=== PATIENT | male | born 1960 | race African-American/Black ===

== ENCOUNTER 2021-03-14 12:15 | Inpatient (IN) ==
[2021-03-14] MEDS ORDERED: SODIUM CHLORIDE 0.9% 1000ML 1,000 ML IV ONE (12:28)
[2021-03-14 13:00] LABS: Basophils # (auto) 0.01 K/uL (0-0.2); Basophils % (auto) 0.1 %; Eosinophils # (auto) 0.02 K/uL (0-0.5); Eosinophils % (auto) 0.2 %; Hematocrit (blood only) 35.2 % (42-52); Hemoglobin 10.8 g/dL (14.0-18.0); Immature Granulocytes # (auto) 0.03 K/uL (0.00-0.02); Immature Granulocytes % (auto) 0.3 %; Lymphocytes # (auto) 0.92 K/uL (1.2-3.4); Lymphocytes % (auto) 8.1 %; Mean Corpuscular Hemoglobin 25.3 pg (25-34); Mean Corpuscular Hgb Conc 30.7 g/dL (32-36); Mean Corpuscular Volume 82.4 fL (80-100); Mean Platelet Volume 9.1 fL (7.4-10.4); Monocytes # (auto) 0.79 K/uL (0.11-0.59); Monocytes % (auto) 6.9 %; Neutrophils # (auto) 9.63 K/uL (1.4-6.5); Neutrophils % (auto) 84.4 %; Platelet Count 401 K/uL (130-400); RDW Coefficient of Variation 16.7 % (11.5-14.5); RDW Standard Deviation 50.3 fL (36.4-46.3); Red Blood Count 4.27 M/uL (4.7-6.1)
[2021-03-14 13:09] LABS: INR 1.1 (0.9-1.1); Partial Thromboplastin Ratio 0.9; Partial Thromboplastin Time 22.5 Seconds (21.0-31.0)
[2021-03-14 13:20] LABS: Albumin Level 2.9 gm/dl (3.4-5.0); BUN Creatinine Ratio 14.1 (10-20); Calcium 9.9 mg/dl (8.5-10.1); Creatinine Clr Calc Pharmacy 83.5 ml/min; Est GFR (African American) 91.5 ml/min; Magnesium 2.1 mg/dl (1.8-2.4); Potassium 4.1 mmol/L (3.5-5.1)
[2021-03-14 13:48] LABS: Albumin Globulin Ratio 0.4 (0.9-2); Bilirubin,Total 0.5 mg/dl (0.2-1); Globulin 6.6 gm/dl (2.5-4.0); Total Protein 9.5 gm/dl (6.4-8.2); Troponin I 0.327 ng/ml (0-0.045)
--- NOTE | 2021-03-14 13:50 | Emergency Department Note ---
History of Present Illness General Chief complaint: Chest Pain Stated complaint: CHEST PAIN, SOB Time Seen by Provider: 03/14/21 12:18 History of Present Illness Provider complaint: Chest pain Onset (ago): day(s) 1 Location: chest and abdomen Maximum Pain Intensity: 7 Current Pain Intensity: 7 Quality: + sharp Relieved By: + none Exacerbated By: + none Associated symptoms: + chest pain; no cough, no fever/chills, no headaches, no nausea/vomiting and no shortness of breath 60-year-old male prisoner presents emergency department in custody for chest pain. Patient reports his chest pain is sharp. He states it began it when they were changing his dressings in his colostomy. He denies any difficulty breathing. Denies any fevers. He denies any cough. Per notes from the group home: Inmate status post TURP was walking in the day room when he became diaphoretic a nd short of breath. His oxygen saturation 95% on room air heart rate normal respirations short and unlabored and when he was assisted into bed continue to complain of shortness of breath and "seeing spots" O2 recheck at 81% on room air. Home Medications Medication Instructions Recorded Confirmed Type bisacodyl 5 mg PO DAILY 03/14/21 03/14/21 History docusate sodium [Colace] 50 mg PO DAILY 03/14/21 03/14/21 History docusate sodium [Colace] 200 mg PO DAILY 03/14/21 03/14/21 History lactulose 10 g PO DAILY PRN 03/14/21 03/14/21 History rosuvastatin [Crestor] 20 mg PO QDD 03/14/21 03/14/21 History simethicone 180 mg PO BID 03/14/21 03/14/21 History Allergies Allergy/AdvReac Type Severity Reaction Status Date / Time No Known Allergies Allergy Unverified 03/14/21 16:05 Past Med/Surg History Medical History (Updated 03/14/21 @ 16:45 by Jam Magana) BPH (benign prostatic hyperplasia) Diverticulitis of colon with perforation HLD (hyperlipidemia) No pertinent family history Surgical History (Updated 03/14/21 @ 16:08 by Olimpia Hensley PA-C) History of bilateral inguinal herniorrhaphies Hx of colostomy S/P TURP Social History (Updated 03/14/21 @ 16:09 by Olimpia Hensley PA-C) Smoking Status: Former smoker Current Living Situation Comment: incarcerated at [facility] Feels Safe at Home: Yes Review of Systems A total of 10 systems reviewed and were otherwise negative Physical Exam Vital Signs Vital Signs - 24 hr 03/14/21 12:20 03/14/21 12:24 03/14/21 12:30 Temperature Temperature Source Pulse Rate 127 H 129 H 130 H Pulse Rate [Apical] Pulse Rate from SpO2 Sensor 128 H 129 H 130 H Respiratory Rate 15 17 19 Respiratory Effort / Characteristics Respiratory Depth Respiratory Pattern Blood Pressure 123/79 119/77 Blood Pressure [Right Arm] Blood Pressure Mean 93 91 Blood Pressure Mean [Right Arm] Blood Pressure Position Blood Pressure Position [Right Arm] Pulse Oximetry 94 95 94 Oxygen Delivery Method Sepsis Recent Fever Within 48 Hours Sepsis New/Unexplained Change in Mental Status Sepsis Action Taken by Nursing 03/14/21 12:31 03/14/21 12:33 03/14/21 12:40 Temperature 36.3 C L Temperature Source Oral Pulse Rate 128 H 129 H 130 H Pulse Rate [Apical] Pulse Rate from SpO2 Sensor 130 H Respiratory Rate 17 19 18 Respiratory Effort / Characteristics Non-Labored Respiratory Depth Normal Respiratory Pattern Regular Blood Pressure 119/77 Blood Pressure [Right Arm] Blood Pressure Mean 91 Blood Pressure Mean [Right Arm] Blood Pressure Position Sitting Blood Pressure Position [Right Arm] Pulse Oximetry 94 94 Oxygen Delivery Method Room Air Room Air Sepsis Recent Fever Within 48 Hours No Sepsis New/Unexplained Change in Mental Status N/A Sepsis Action Taken by Nursing No Action Required 03/14/21 12:50 03/14/21 13:00 03/14/21 13:10 Temperature Temperature Source Pulse Rate 129 H 127 H 128 H Pulse Rate [Apical] Pulse Rate from SpO2 Sensor Respiratory Rate 17 19 19 Respiratory Effort / Characteristics Respiratory Depth Respiratory Pattern Blood Pressure Blood Pressure [Right Arm] Blood Pressure Mean Blood Pressure Mean [Right Arm] Blood Pressure Position Blood Pressure Position [Right Arm] Pulse Oximetry Oxygen Delivery Method Sepsis Recent Fever Within 48 Hours Sepsis New/Unexplained Change in Mental Status Sepsis Action Taken by Nursing 03/14/21 13:20 03/14/21 13:27 03/14/21 13:30 Temperature Temperature Source Pulse Rate 126 H 126 H 127 H Pulse Rate [Apical] Pulse Rate from SpO2 Sensor 128 H 128 H Respiratory Rate 15 19 19 Respiratory Effort / Characteristics Respiratory Depth Respiratory Pattern Blood Pressure 127/79 107/77 Blood Pressure [Right Arm] Blood Pressure Mean 95 87 Blood Pressure Mean [Right Arm] Blood Pressure Position Blood Pressure Position [Right Arm] Pulse Oximetry 95 94 Oxygen Delivery Method Sepsis Recent Fever Within 48 Hours Sepsis New/Unexplained Change in Mental Status Sepsis Action Taken by Nursing 03/14/21 13:31 03/14/21 13:40 03/14/21 14:03 Temperature Temperature Source Pulse Rate 126 H 120 H 122 H Pulse Rate [Apical] Pulse Rate from SpO2 Sensor 125 H 120 H 125 H Respiratory Rate 19 21 16 Respiratory Effort / Characteristics Respiratory Depth Respiratory Pattern Blood Pressure Blood Pressure [Right Arm] Blood Pressure Mean Blood Pressure Mean [Right Arm] Blood Pressure Position Blood Pressure Position [Right Arm] Pulse Oximetry 94 94 92 Oxygen Delivery Method Sepsis Recent Fever Within 48 Hours Sepsis New/Unexplained Change in Mental Status Sepsis Action Taken by Nursing 03/14/21 14:04 03/14/21 14:10 03/14/21 14:20 Temperature Temperature Source Pulse Rate 122 H 120 H 125 H Pulse Rate [Apical] Pulse Rate from SpO2 Sensor 123 H Respiratory Rate 20 17 18 Respiratory Effort / Characteristics Respiratory Depth Respiratory Pattern Blood Pressure 119/85 Blood Pressure [Right Arm] Blood Pressure Mean 96 Blood Pressure Mean [Right Arm] Blood Pressure Position Blood Pressure Position [Right Arm] Pulse Oximetry 93 Oxygen Delivery Method Sepsis Recent Fever Within 48 Hours Sepsis New/Unexplained Change in Mental Status Sepsis Action Taken by Nursing 03/14/21 14:30 03/14/21 14:31 03/14/21 14:40 Temperature Temperature Source Pulse Rate 125 H 122 H 120 H Pulse Rate [Apical] Pulse Rate from SpO2 Sensor Respiratory Rate 16 21 18 Respiratory Effort / Characteristics Respiratory Depth Respiratory Pattern Blood Pressure 116/78 Blood Pressure [Right Arm] Blood Pressure Mean 90 Blood Pressure Mean [Right Arm] Blood Pressure Position Blood Pressure Position [Right Arm] Pulse Oximetry Oxygen Delivery Method Sepsis Recent Fever Within 48 Hours Sepsis New/Unexplained Change in Mental Status Sepsis Action Taken by Nursing 03/14/21 14:50 03/14/21 15:40 03/14/21 16:31 Temperature Temperature Source Pulse Rate 120 H Pulse Rate [Apical] 136 H Pulse Rate from SpO2 Sensor Respiratory Rate 22 20 Respiratory Effort / Characteristics Labored Respiratory Depth Respiratory Pattern Blood Pressure Blood Pressure [Right Arm] 118/93 Blood Pressure Mean Blood Pressure Mean [Right Arm] 101 Blood Pressure Position Blood Pressure Position [Right Arm] Lying Pulse Oximetry 95 94 Oxygen Delivery Method Room Air Room Air Sepsis Recent Fever Within 48 Hours Sepsis New/Unexplained Change in Mental Status Sepsis Action Taken by Nursing Physical Exam GENERAL: He is oriented to person, place, and time. He appears well-developed and well-nourished. He does not appear distressed. HENT: Exam performed. - Head: Normocephalic and atraumatic. - Right Ear: External ear normal. No mastoid tenderness. - Left Ear: External ear normal. No mastoid tenderness. - Mouth/Throat: The oropharynx is clear and moist. No trismus in the jaw. No dental abscesses or uvula swelling. No oropharyngeal exudate or tonsillar abscesses. EYES: Conjunctivae and EOM are normal. Pupils are equal, round, and reactive to light. Right eye exhibits no discharge. Left eye exhibits no discharge. No scleral icterus. NECK: Normal range of motion. Neck supple. No JVD present. No spinous process tenderness present. No carotid bruit present. No rigidity. No tracheal deviation and normal range of motion present. No Brudzinski's sign and no Kernig's sign noted. CV: Tachycardic rate, regular rhythm, normal heart sounds and intact distal pulses. There is no peripheral edema. Palpable radial pulses bue. PULM/CHEST: Effort normal and breath sounds normal. No respiratory distress. No stridor. He has no wheezes. He has no rales. - Chest Wall: He exhibits no tenderness. ABD: Anterior abdominal wound that is clean and dry. No purulent discharge or bleeding. Ostomy bag present with no surrounding erythema. MUSC/SKEL: Normal range of motion. There is no peripheral edema, tenderness or deformity. LYMPH: No cervical adenopathy. NEURO: He is alert and oriented to person, place, and time. He has normal strength. No cranial nerve deficit or sensory deficit. Coordination and gait normal. GCS eye subscore is 4. GCS verbal subscore is 5. GCS motor subscore is 6. Cerebellar tests wnl. SKIN: Skin is warm and dry. He is not diaphoretic. PSYCH: He has a normal mood and affect. Behavior is normal. Judgment and thought content normal. Course Course 1218: The patient was evaluated in room B6. A complete history and physical exam was performed Cardiac monitoring: An order was placed for continuous cardiac monitoring. The monitor shows a rate of 120 with sinus tachycardia rhythm 1500: Patient remains tachycardic but he is satting well on room air and normotensive. Labs show an elevated troponin 0.327. Lipase 610. AST ALT 48 and 114 respectively. Imaging shows saddle embolus with extensive bilateral pulmonary emboli. There is postoperative change from the left-sided colon resection. No bowel obstruction. There are thickened bowel loops and tiny foci of extraluminal gas which could represent a postoperative change in adhesions or focal enteritis and contained perforation. No organized triple fluid collection is identified. There is a thin peripherally enhancing fluid-filled tract i nferiorly from the tethered small bowel loops which could represent a previous surgical drain or developing fistula. Nonspecific gas within the bladder lumen. Patient be treated with antibiotics for this possible contained perforation Zosyn and vancomycin. Given the patient's saddle embolus and pulmonary emboli, the patient will be started on anticoagulation heparin. Patient states he is not sure where or when he had the surgical procedure done. I spoke with the group home and I spoke with Dane HUYNH at [facility]. He states he thinks that the patient had a TURP done 3 weeks ago in [place] and during the TURP they caused a colon perforation. He states he is not sure about this and is not sure who the surgeon was or if the patient truly had the TURP done at [place] and states he will try to find this information out. It is not thought that the patient would be a good candidate for TPA given his recent surgical procedure. We will start the patient on heparin at this time. Spoke with Dr. Mcfadden [facility] hospitalist who will evaluate the patient for admission. 1517: Dane HUYNH at [facility] called back and stated that the patient had a bowel resection done at [facility] on [address] Edmondson. He states he is not sure when or where the patient's TURP procedure was done. Administered Medications Heparin Sodium/Dextrose (Heparin Sodium/Dextrose) 25,000 units in 500 mls @ 30 mls/hr IV .[id number] [facility]; Protocol Stop: 04/13/21 14:53 Last Admin: 03/14/21 15:09 Dose: 1,500 units/hr, 30 mls/hr Documented by: [id number] Cosigned by: [id number] Vancomycin HCl 2,250 mg/ (Sodium Chloride) 545 mls @ 200 mls/hr IV NOW ONE Stop: 03/14/21 17:21 Last Admin: 03/14/21 15:10 Dose: 200 mls/hr Documented by: [id number] Discontinued Medications Heparin Sodium (Porcine) (Heparin Sod (Porcine) 1000 Unit/Ml) 1 units IV NOW ONE Stop: 03/14/21 14:55 Last Admin: 03/14/21 15:07 Dose: 7,000 units Documented by: [id number] Cosigned by: [id number] Heparin Sodium/Dextrose (Heparin Iv Adult Wt-Based Standard With Bolus Protocol) 1 ea IV NOW STA; Protocol Stop: 03/14/21 14:39 Last Admin: 03/14/21 15:10 Dose: Not Given Documented by: [id number] Sodium Chloride (Nss 1000ml) 1,000 mls @ 999 mls/hr IV .[id number] ONE Stop: 03/14/21 13:28 Last Infusion: 03/14/21 15:10 Dose: 0 mls/hr Documented by: [id number] Admin: 03/14/21 13:27 Dose: 999 mls/hr Documented by: [id number] Piperacillin Sod/Tazobactam Sod (Zosyn) 4.5 gm in 120 mls @ 240 mls/hr IV NOW ONE Stop: 03/14/21 15:07 Last Infusion: 03/14/21 15:49 Dose: 0 mls/hr Documented by: [id number] Admin: 03/14/21 15:10 Dose: 240 mls/hr Documented by: [id number] Ioversol (Optiray 320 125ml) 120 ml IV ONCE ONE Stop: 03/14/21 13:52 Last Admin: 03/14/21 13:51 Dose: 120 ml Documented by: [id number] Ondansetron HCl (Ondansetron Inj 2 Mg/Ml 2 Ml Vial) 4 mg IV NOW STA Stop: 03/14/21 15:50 Last Admin: 03/14/21 15:57 Dose: 4 mg Documented by: [id number] Critical Care Time Critical Care Time: Yes Total Critical Care Time: 61 I have personally spent greater than 61 minutes of critical care time in the direct management of this patient. This includes bedside care, interpretation of diagnostic studies, and testing, discussion with consultants, patient, and family members, and other required patient management activities. This 61 minutes is in excess of all separately billable procedures. Medical Decision Making Laboratory Data Result diagrams: 03/14/21 12:47 03/14/21 12:47 Lab Results 03/14/21 03/14/21 03/14/21 Range/Units 12:47 12:47 12:47 WBC 11.40 H (4.8-10.8) K/uL RBC 4.27 L (4.7-6.1) M/uL Hgb 10.8 L (14.0-18.0) g/dL Hct 35.2 L (42-52) % MCV 82.4 (80-100) fL MCH 25.3 (25-34) pg MCHC 30.7 L (32-36) g/dL RDW Std Deviation 50.3 H (36.4-46.3) fL RDW Coeff of Heron 16.7 H (11.5-14.5) % Plt Count 401 H (130-400) K/uL MPV 9.1 (7.4-10.4) fL Immature Gran % (Auto) 0.3 % Neut % (Auto) 84.4 % Lymph % (Auto) 8.1 % [place] % (Auto) 6.9 % Eos % (Auto) 0.2 % Baso % (Auto) 0.1 % Neut # (Auto) 9.63 H (1.4-6.5) K/uL Lymph # (Auto) 0.92 L (1.2-3.4) K/uL [place] # (Auto) 0.79 H (0.11-0.59) K/uL Eos # (Auto) 0.02 (0-0.5) K/uL Baso # (Auto) 0.01 (0-0.2) K/uL Immature Gran # (Auto) 0.03 H (0.00-0.02) K/uL PT 11.0 (9.0-12.0) Seconds INR 1.1 (0.9-1.1) APTT 22.5 (21.0-31.0) Seconds PTT Ratio 0.9 Sodium 134 L (136-145) mmol/L Potassium 4.1 (3.5-5.1) mmol/L Chloride 99 (98-107) mmol/L Carbon Dioxide 25 (21-32) mmol/L Anion Gap 10.0 (3-11) BUN 14 (7-18) mg/dl Creatinine 1.02 (0.6-1.4) mg/dl Est Cr Clr Drug Dosing 83.5 ml/min Est GFR ( Amer) 91.5 ml/min Est GFR (Non-Af Amer) 79.0 ml/min BUN/Creatinine Ratio 14.1 (10-20) Glucose 119 H (70-99) mg/dl Lactate (0.4-2.0) mmol/L Calcium 9.9 (8.5-10.1) mg/dl Magnesium 2.1 (1.8-2.4) mg/dl Total Bilirubin 0.5 (0.2-1) mg/dl AST 48 H (15-37) U/L ALT 114 H (12-78) U/L Alkaline Phosphatase 155 H (45-117) U/L Troponin I 0.327 H* (0-0.045) ng/ml Total Protein 9.5 H (6.4-8.2) gm/dl Albumin 2.9 L (3.4-5.0) gm/dl Globulin 6.6 H (2.5-4.0) gm/dl Albumin/Globulin Ratio 0.4 L (0.9-2) Lipase (73-393) U/L Procalcitonin (0-0.5) ng/ml Urine Color Urine Appearance (Clear) Urine pH (4.5-7.5) Ur Specific [place] (1.000-1.030) Urine Protein (Negative) Urine Glucose (UA) (Negative) Urine Ketones (Negative) Urine Blood (Negative) Urine Nitrite (Negative) Urine Bilirubin (Negative) Urine Urobilinogen (Negative) Ur Leukocyte Esterase (Negative) Urine WBC (Auto) (0-5) /hpf Urine RBC (Auto) (0-4) /hpf U Hyaline Cast (Auto) (0-5) /lpf U Epithel Cells (Auto) (0-5) /lpf Urine Bacteria (Auto) (Negative) Urine Yeast COVID-19 Eval Order SARS-CoV-2 (PCR) (Negative) 03/14/21 03/14/21 03/14/21 Range/Units 12:47 12:47 12:47 WBC (4.8-10.8) K/uL RBC (4.7-6.1) M/uL Hgb (14.0-18.0) g/dL Hct (42-52) % MCV (80-100) fL MCH (25-34) pg MCHC (32-36) g/dL RDW Std Deviation (36.4-46.3) fL RDW Coeff of Heron (11.5-14.5) % Plt Count (130-400) K/uL MPV (7.4-10.4) fL Immature Gran % (Auto) % Neut % (Auto) % Lymph % (Auto) % [place] % (Auto) % Eos % (Auto) % Baso % (Auto) % Neut # (Auto) (1.4-6.5) K/uL Lymph # (Auto) (1.2-3.4) K/uL [place] # (Auto) (0.11-0.59) K/uL Eos # (Auto) (0-0.5) K/uL Baso # (Auto) (0-0.2) K/uL Immature Gran # (Auto) (0.00-0.02) K/uL PT (9.0-12.0) Seconds INR (0.9-1.1) APTT (21.0-31.0) Seconds PTT Ratio Sodium (136-145) mmol/L Potassium (3.5-5.1) mmol/L Chloride (98-107) mmol/L Carbon Dioxide (21-32) mmol/L Anion Gap (3-11) BUN (7-18) mg/dl Creatinine (0.6-1.4) mg/dl Est Cr Clr Drug Dosing ml/min Est GFR ( Amer) ml/min Est GFR (Non-Af Amer) ml/min BUN/Creatinine Ratio (10-20) Glucose (70-99) mg/dl Lactate 1.0 (0.4-2.0) mmol/L Calcium (8.5-10.1) mg/dl Magnesium (1.8-2.4) mg/dl Total Bilirubin (0.2-1) mg/dl AST (15-37) U/L ALT (12-78) U/L Alkaline Phosphatase (45-117) U/L Troponin I (0-0.045) ng/ml Total Protein (6.4-8.2) gm/dl Albumin (3.4-5.0) gm/dl Globulin (2.5-4.0) gm/dl Albumin/Globulin Ratio (0.9-2) Lipase 610 H (73-393) U/L Procalcitonin 0.06 (0-0.5) ng/ml Urine Color Urine Appearance (Clear) Urine pH (4.5-7.5) Ur Specific [place] (1.000-1.030) Urine Protein (Negative) Urine Glucose (UA) (Negative) Urine Ketones (Negative) Urine Blood (Negative) Urine Nitrite (Negative) Urine Bilirubin (Negative) Urine Urobilinogen (Negative) Ur Leukocyte Esterase (Negative) Urine WBC (Auto) (0-5) /hpf Urine RBC (Auto) (0-4) /hpf U Hyaline Cast (Auto) (0-5) /lpf U Epithel Cells (Auto) (0-5) /lpf Urine Bacteria (Auto) (Negative) Urine Yeast COVID-19 Eval Order SARS-CoV-2 (PCR) (Negative) 03/14/21 03/14/21 03/14/21 Range/Units 15:07 15:07 15:14 WBC (4.8-10.8) K/uL RBC (4.7-6.1) M/uL Hgb (14.0-18.0) g/dL Hct (42-52) % MCV (80-100) fL MCH (25-34) pg MCHC (32-36) g/dL RDW Std Deviation (36.4-46.3) fL RDW Coeff of Heron (11.5-14.5) % Plt Count (130-400) K/uL MPV (7.4-10.4) fL Immature Gran % (Auto) % Neut % (Auto) % Lymph % (Auto) % [place] % (Auto) % Eos % (Auto) % Baso % (Auto) % Neut # (Auto) (1.4-6.5) K/uL Lymph # (Auto) (1.2-3.4) K/uL [place] # (Auto) (0.11-0.59) K/uL Eos # (Auto) (0-0.5) K/uL Baso # (Auto) (0-0.2) K/uL Immature Gran # (Auto) (0.00-0.02) K/uL PT (9.0-12.0) Seconds INR (0.9-1.1) APTT (21.0-31.0) Seconds PTT Ratio Sodium (136-145) mmol/L Potassium (3.5-5.1) mmol/L Chloride (98-107) mmol/L Carbon Dioxide (21-32) mmol/L Anion Gap (3-11) BUN (7-18) mg/dl Creatinine (0.6-1.4) mg/dl Est Cr Clr Drug Dosing ml/min Est GFR ( Amer) ml/min Est GFR (Non-Af Amer) ml/min BUN/Creatinine Ratio (10-20) Glucose (70-99) mg/dl Lactate (0.4-2.0) mmol/L Calcium (8.5-10.1) mg/dl Magnesium (1.8-2.4) mg/dl Total Bilirubin (0.2-1) mg/dl AST (15-37) U/L ALT (12-78) U/L Alkaline Phosphatase (45-117) U/L Troponin I (0-0.045) ng/ml Total Protein (6.4-8.2) gm/dl Albumin (3.4-5.0) gm/dl Globulin (2.5-4.0) gm/dl Albumin/Globulin Ratio (0.9-2) Lipase (73-393) U/L Procalcitonin (0-0.5) ng/ml Urine Color Yellow Urine Appearance Turbid A (Clear) Urine pH 7.5 (4.5-7.5) Ur Specific [place] > 1.045 H (1.000-1.030) Urine Protein 2+ H (Negative) Urine Glucose (UA) Negative (Negative) Urine Ketones Negative (Negative) Urine Blood 3+ H (Negative) Urine Nitrite Positive A (Negative) Urine Bilirubin Negative (Negative) Urine Urobilinogen Negative (Negative) Ur Leukocyte Esterase 3+ H (Negative) Urine WBC (Auto) >30 H (0-5) /hpf Urine RBC (Auto) >30 H (0-4) /hpf U Hyaline Cast (Auto) 1-5 (0-5) /lpf U Epithel Cells (Auto) 20-30 H (0-5) /lpf Urine Bacteria (Auto) 4+ H (Negative) Urine Yeast Not Reportable COVID-19 Eval Order Covid19 at [facility] SARS-CoV-2 (PCR) NEGATIVE (Negative) Imaging Data Radiologist's Impression: Abdomen/Pelvis CT 03/14/21 12:28 CT ANGIOGRAM OF THE CHEST; CT SCAN OF THE ABDOMEN AND PELVIS WITH IV CONTRAST CLINICAL HISTORY: Atypical chest pain. Dyspnea. Generalized abdominal pain. COMPARISON STUDY: Chest x-ray dated 03/14/2021. TECHNIQUE: Following the IV administration of 120 of Optiray 320, CT angiogram of the chest is performed from the upper abdomen to the thoracic inlet utilizing the pulmonary embolus protocol. Images are reviewed in the axial, sagittal, coronal planes. 3-D MIPS images are created and assessed. Subsequently, CT scan of the abdomen and pelvis was performed from the lung bases to the proximal femora. Images are reviewed in the axial, sagittal, and coronal planes. IV contrast was administered without complication. A dose lowering technique was utilized adhering to the principles of ALARA. CT DOSE: 924.86 mGy.cm FINDINGS: CHEST: Thyroid: Imaged portions of the thyroid gland are normal in size and attenuation. Thoracic aorta: The thoracic aorta is normal in caliber and demonstrates standard 3-vessel arch anatomy. No dissection is seen. Pulmonary vasculature: The pulmonary trunk is mildly dilated measuring 3.3 cm in transverse diameter. This suggests pulmonary artery hypertension. There is saddle pulmonary embolus with extensive bilateral pulmonary emboli. Thrombus is seen within the right and left main pulmonary arteries. This extends into all lobar branches, and reaches segmental and subsegmental branches in all lobes. Heart: The heart is mildly enlarged and without pericardial effusion. The coronary arteries are densely calcified. Lungs and pleural spaces: Moderate emphysematous change is noted. There is no airspace consolidation typical for pneumonia or pleural effusion. The trachea and central airways are clear. Scarring/atelectasis is present at both lung bases. A 3 mm pleural-based nodule in the left lower lobe is seen on image #175. Mediastinum: There is no mediastinal lymphadenopathy. Meena: Clear. Axillae: There is no axillary lymphadenopathy. Bony thorax: No lytic or blastic lesions are identified. ABDOMEN AND PELVIS: Liver: The contrast-enhanced liver is normal in size, contour, and attenuation. There is no intrahepatic or ductal dilatation. The hepatic veins and portal veins are patent. Scattered subcentimeter hepatic hypodensities may represent cysts but are too small for definitive characterization. Gallbladder: Unremarkable. Spleen: Normal in size and attenuation. Pancreas: Unremarkable. Adrenal glands: Unremarkable. Kidneys: The contrast enhanced kidneys are normal in size and without hydronephrosis. The kidneys enhance symmetrically. A 10 mm cyst is noted in the interpolar left kidney. Abdominal vasculature: There is mild to moderate atherosclerotic calcification as well as ectasia of the abdominal aorta. There is mild aneurysmal dilatation of the common iliac arteries which measure up to 2.0 cm in diameter. Extensive deep venous thrombosis is seen within the right common femoral vein. The iliac veins and IVC appear clear. Stomach and bowel: There is a small hiatal hernia. There is postoperative change from left-sided colon resection with left lower quadrant colostomy. A rectosigmoid stump is noted in the pelvis. No bowel obstruction is seen. There are scattered colonic diverticula without CT evidence of acute diverticulitis. The appendix is well-visualized and normal. There are mildly thick-walled and hyperemic loops of small bowel in the lateral left mid abdomen at the operative site, and small bowel loops appear tethered in this region on image #225. There are tiny foci of extraluminal gas identified adjacent to a small bowel loop seen on axial image #252. There is a thin and peripherally enhancing fluid containing tract in this region seen on image #280 which extends inferiorly from the tethered loops. This may represent a tract from a previous drain. A small fistula is not excluded. There is gas within this tract on image #206. Peritoneum: There is no intraperitoneal free air below the diaphragm. No abdominal ascites is seen. There is diastases of the ventral abdominal wall. Lymphadenopathy: None. Pelvic viscera: The bladder wall is thickened and trabeculated indicating chronic outlet obstruction. There are foci of intraluminal gas. The prostate gland is enlarged and heterogeneous noting median lobe hypertrophy. Question previous prostate surgery. Skeletal structures: No lytic or blastic lesions are seen. IMPRESSION: 1. Saddle embolus with extensive bilateral pulmonary emboli as above. 2. Cardiomegaly and emphysema. 3. There is no airspace consolidation typical for pneumonia or pleural effusion. 4. There is postoperative change from left-sided colon resection with left lower quadrant colostomy and rectosigmoid stump formation. No bowel obstruction is seen. 5. There are mildly thick-walled and hyperemic loops of small bowel in the left lateral abdomen at the resection site which appeared somewhat tethered. Additionally, there are tiny foci of extraluminal gas adjacent to one of the small bowel loops. This may represent postoperative change and adhesions. A focal enteritis and contained perforation is not excluded. Clinical correlation will be essential. 6. Additionally, there is a thin and peripherally enhancing fluid-filled tract extending inferiorly from the tethered small bowel loops. This may represent a site of previous surgical drain, or possibly a developing fistula. 7. No organized/triple fluid collection is identified. 8. No intraperitoneal free air seen below the diaphragm. 9. There is nonspecific gas within the bladder lumen. Correlate with clinical findings and urinalysis. 10. Postoperative change is suggested in the prostate and there is evidence of chronic bladder outlet obstruction. 11. Deep venous thrombosis is present in the right common femoral vein. 12. Diastases of the ventral abdominal wall. 13. A 3 mm pleural-based nodule is seen in the left lower lobe. This can be followed if clinically warranted. See below. 14. Additional findings as above. Please refer to below summary of Fleischner criteria recommendations for follow- up of incidental CT nodules (Thais Barrientos, Guidelines for management of small pulmonary nodules detected on CT scans: A statement from the Fleischner Society, Radiology 237: [phone].) SOLID NODULES Solitary nodule size: <6 mm * low risk patients: no follow-up needed * high risk patients: optional CT at 12 months Solitary nodule size: 6-8 mm * low risk patients: follow-up at 6-12 months, then consider further follow-up at 18-24 months * high risk patients: initial follow-up CT at 6-12 months and then at 18-24 months if no change Solitary nodule size: >8 mm * either low or high risk patients - consider follow-up CT at 3 months, and/or CT-PET, and/or biopsy Multiple nodules size: <6 mm * low risk patients: no routine follow-up * high risk patients: optional CT at 12 months Multiple nodules size: 6-8 mm * low risk patients: follow-up at 3-6 months, then consider further follow-up at 18-24 months * high risk patients: follow-up at 3-6 months, then at 18-24 months if no change Multiple nodules size: >8 mm * low risk patients: follow-up at 3-6 months, then consider further follow-up at 18-24 months * high risk patients: follow-up at 3-6 months, then at 18-24 months if no change Note: newly detected indeterminate nodule in persons 35 years of age or older. * low risk patients: minimal or absent history of smoking and/or other known risk factors * high risk patients: history of smoking or of other known risk factors (e.g. first degree relative with lung cancer, or exposure to asbestos, radon, uranium) * if a nodule up to 8 mm is partly solid or is ground glass further follow-up is required after 24 months to exclude possible slow growing adenocarcinoma (MECHELLE) SUBSOLID NODULES Solitary pure ground-glass nodule * nodule size <6 mm - no CT follow-up required * nodule size >=6 mm - follow-up CT at 6-12 months, then every 2 years until 5 years Solitary part-solid nodule * nodule size <6 mm - no CT follow-up required * nodule size >=6 mm - follow-up CT at 3-6 months. If unchanged, and solid component remains <6 mm, then annual follow-up for 5 years Multiple subsolid nodules * nodule size <6 mm - follow-up CT at 3-6 months, consider further follow-up at 2 and 4 years if stable * nodule size >=6 mm - follow-up CT at 3-6 months, subsequent management based on the most suspicious nodule(s) ACT 112: Negative or not required by law. Electronically signed by: Parviz Blanca M.D. 03/14/2021 2:32 PM Chest CTA 03/14/21 12:28 CT ANGIOGRAM OF THE CHEST; CT SCAN OF THE ABDOMEN AND PELVIS WITH IV CONTRAST CLINICAL HISTORY: Atypical chest pain. Dyspnea. Generalized abdominal pain. COMPARISON STUDY: Chest x-ray dated 03/14/2021. TECHNIQUE: Following the IV administration of 120 of Optiray 320, CT angiogram of the chest is performed from the upper abdomen to the thoracic inlet utilizing the pulmonary embolus protocol. Images are reviewed in the axial, sagittal, coronal planes. 3-D MIPS images are created and assessed. Subsequently, CT scan of the abdomen and pelvis was performed from the lung bases to the proximal femora. Images are reviewed in the axial, sagittal, and coronal planes. IV contrast was administered without complication. A dose lowering technique was utilized adhering to the principles of ALARA. CT DOSE: 924.86 mGy.cm FINDINGS: CHEST: Thyroid: Imaged portions of the thyroid gland are normal in size and attenuation. Thoracic aorta: The thoracic aorta is normal in caliber and demonstrates standard 3-vessel arch anatomy. No dissection is seen. Pulmonary vasculature: The pulmonary trunk is mildly dilated measuring 3.3 cm in transverse diameter. This suggests pulmonary artery hypertension. There is saddle pulmonary embolus with extensive bilateral pulmonary emboli. Thrombus is seen within the right and left main pulmonary arteries. This extends into all lobar branches, and reaches segmental and subsegmental branches in all lobes. Heart: The heart is mildly enlarged and without pericardial effusion. The coronary arteries are densely calcified. Lungs and pleural spaces: Moderate emphysematous change is noted. There is no airspace consolidation typical for pneumonia or pleural effusion. The trachea and central airways are clear. Scarring/atelectasis is present at both lung bases. A 3 mm pleural-based nodule in the left lower lobe is seen on image #175. Mediastinum: There is no mediastinal lymphadenopathy. Meena: Clear. Axillae: There is no axillary lymphadenopathy. Bony thorax: No lytic or blastic lesions are identified. ABDOMEN AND PELVIS: Liver: The contrast-enhanced liver is normal in size, contour, and attenuation. There is no intrahepatic or ductal dilatation. The hepatic veins and portal veins are patent. Scattered subcentimeter hepatic hypodensities may represent cysts but are too small for definitive characterization. Gallbladder: Unremarkable. Spleen: Normal in size and attenuation. Pancreas: Unremarkable. Adrenal glands: Unremarkable. Kidneys: The contrast enhanced kidneys are normal in size and without hydronephrosis. The kidneys enhance symmetrically. A 10 mm cyst is noted in the interpolar left kidney. Abdominal vasculature: There is mild to moderate atherosclerotic calcification as well as ectasia of the abdominal aorta. There is mild aneurysmal dilatation of the common iliac arteries which measure up to 2.0 cm in diameter. Extensive deep venous thrombosis is seen within the right common femoral vein. The iliac veins and IVC appear clear. Stomach and bowel: There is a small hiatal hernia. There is postoperative change from left-sided colon resection with left lower quadrant colostomy. A rectosigmoid stump is noted in the pelvis. No bowel obstruction is seen. There are scattered colonic diverticula without CT evidence of acute diverticulitis. The appendix is well-visualized and normal. There are mildly thick-walled and hyperemic loops of small bowel in the lateral left mid abdomen at the operative site, and small bowel loops appear tethered in this region on image #225. There are tiny foci of extraluminal gas identified adjacent to a small bowel loop seen on axial image #252. There is a thin and peripherally enhancing fluid containing tract in this region seen on image #280 which extends inferiorly from the tethered loops. This may represent a tract from a previous drain. A small fistula is not excluded. There is gas within this tract on image #206. Peritoneum: There is no intraperitoneal free air below the diaphragm. No abdominal ascites is seen. There is diastases of the ventral abdominal wall. Lymphadenopathy: None. Pelvic viscera: The bladder wall is thickened and trabeculated indicating chronic outlet obstruction. There are foci of intraluminal gas. The prostate gland is enlarged and heterogeneous noting median lobe hypertrophy. Question previous prostate surgery. Skeletal structures: No lytic or blastic lesions are seen. IMPRESSION: 1. Saddle embolus with extensive bilateral pulmonary emboli as above. 2. Cardiomegaly and emphysema. 3. There is no airspace consolidation typical for pneumonia or pleural effusion. 4. There is postoperative change from left-sided colon resection with left lower quadrant colostomy and rectosigmoid stump formation. No bowel obstruction is seen. 5. There are mildly thick-walled and hyperemic loops of small bowel in the left lateral abdomen at the resection site which appeared somewhat tethered. Additionally, there are tiny foci of extraluminal gas adjacent to one of the small bowel loops. This may represent postoperative change and adhesions. A focal enteritis and contained perforation is not excluded. Clinical correlation will be essential. 6. Additionally, there is a thin and peripherally enhancing fluid-filled tract extending inferiorly from the tethered small bowel loops. This may represent a site of previous surgical drain, or possibly a developing fistula. 7. No organized/triple fluid collection is identified. 8. No intraperitoneal free air seen below the diaphragm. 9. There is nonspecific gas within the bladder lumen. Correlate with clinical findings and urinalysis. 10. Postoperative change is suggested in the prostate and there is evidence of chronic bladder outlet obstruction. 11. Deep venous thrombosis is present in the right common femoral vein. 12. Diastases of the ventral abdominal wall. 13. A 3 mm pleural-based nodule is seen in the left lower lobe. This can be followed if clinically warranted. See below. 14. Additional findings as above. Please refer to below summary of Fleischner criteria recommendations for follow- up of incidental CT nodules (Thais Barrientos, Guidelines for management of small pulmonary nodules detected on CT scans: A statement from the Fleischner Society, Radiology 237: [phone].) SOLID NODULES Solitary nodule size: <6 mm * low risk patients: no follow-up needed * high risk patients: optional CT at 12 months Solitary nodule size: 6-8 mm * low risk patients: follow-up at 6-12 months, then consider further follow-up at 18-24 months * high risk patients: initial follow-up CT at 6-12 months and then at 18-24 months if no change Solitary nodule size: >8 mm * either low or high risk patients - consider follow-up CT at 3 months, and/or CT-PET, and/or biopsy Multiple nodules size: <6 mm * low risk patients: no routine follow-up * high risk patients: optional CT at 12 months Multiple nodules size: 6-8 mm * low risk patients: follow-up at 3-6 months, then consider further follow-up at 18-24 months * high risk patients: follow-up at 3-6 months, then at 18-24 months if no change Multiple nodules size: >8 mm * low risk patients: follow-up at 3-6 months, then consider further follow-up at 18-24 months * high risk patients: follow-up at 3-6 months, then at 18-24 months if no change Note: newly detected indeterminate nodule in persons 35 years of age or older. * low risk patients: minimal or absent history of smoking and/or other known risk factors * high risk patients: history of smoking or of other known risk factors (e.g. first degree relative with lung cancer, or exposure to asbestos, radon, uranium) * if a nodule up to 8 mm is partly solid or is ground glass further follow-up is required after 24 months to exclude possible slow growing adenocarcinoma (MECHELLE) SUBSOLID NODULES Solitary pure ground-glass nodule * nodule size <6 mm - no CT follow-up required * nodule size >=6 mm - follow-up CT at 6-12 months, then every 2 years until 5 years Solitary part-solid nodule * nodule size <6 mm - no CT follow-up required * nodule size >=6 mm - follow-up CT at 3-6 months. If unchanged, and solid component remains <6 mm, then annual follow-up for 5 years Multiple subsolid nodules * nodule size <6 mm - follow-up CT at 3-6 months, consider further follow-up at 2 and 4 years if stable * nodule size >=6 mm - follow-up CT at 3-6 months, subsequent management based on the most suspicious nodule(s) ACT 112: Negative or not required by law. Electronically signed by: Parviz Blanca M.D. 03/14/2021 2:32 PM Chest X-Ray 03/14/21 12:28 SINGLE VIEW CHEST CLINICAL HISTORY: Sepsis. FINDINGS: An AP, portable, upright chest radiograph is obtained. No prior studies are available for comparison at the time of dictation. The cardiomediastinal silhouette is unremarkable. Enlargement of the central p ulmonary arteries suggests pulmonary artery hypertension. The lungs and pleural spaces are clear. No pneumothorax is seen. The bony thorax is grossly intact. IMPRESSION: No active disease in the chest. ACT 112: Negative or not required by law. Electronically signed by: Parviz Blanca M.D. 03/14/2021 2:09 PM ECG Data Indication: + chest pain Rate (beats per minute): 126 Rhythm: + sinus tachycardia ECG Intervals/blocks: + Normal QRS, + Normal IL and + Normal QT-c ECG ST segments: + Normal ST segments MDM Narrative 1218: The patient was evaluated in room B6. A complete history and physical exam was performed Cardiac monitoring: An order was placed for continuous cardiac monitoring. The monitor shows a rate of 120 with sinus tachycardia rhythm 1500: Patient remains tachycardic but he is satting well on room air and normotensive. Labs show an elevated troponin 0.327. Lipase 610. AST ALT 48 and 114 respectively. Imaging shows saddle embolus with extensive bilateral pulmonary emboli. There is postoperative change from the left-sided colon resection. No bowel obstruction. There are thickened bowel loops and tiny foci of extraluminal gas which could represent a postoperative change in adhesions or focal enteritis and contained perforation. No organized triple fluid collection is identified. There is a thin peripherally enhancing fluid-filled tract inferiorly from the tethered small bowel loops which could represent a previous surgical drain or developing fistula. Nonspecific gas within the bladder lumen. Patient be treated with antibiotics for this possible contained perforation Zosyn and vancomycin. Given the patient's saddle embolus and pulmonary emboli, the patient will be started on anticoagulation heparin. Patient states he is not sure where or when he had the surgical procedure done. I spoke with the group home and I spoke with Dane HUYNH at [facility]. He states he thinks that the patient had a TURP done 3 weeks ago in [place] and during the TURP they caused a colon perforation. He states he is not sure about this and is not sure who the surgeon was or if the patient truly had the TURP done at [place] and states he will try to find this information out. It is not thought that the patient would be a good candidate for TPA given his recent surgical procedure. We will start the patient on heparin at this time. Spoke with Dr. Mcfadden [facility] hospitalist who will evaluate the patient for admission. 1517: Dane HUYNH at [facility] called back and stated that the patient had a bowel resection done at [facility] on February [address] Edmondson. He states he is not sure when or where the patient's TURP procedure was done. Impression & Plan Pulmonary emboli, Acute UTI Discharge Plan Visit Data Chief Complaint: Chest Pain Stated Complaint: CHEST PAIN, SOB ED Provider: Jam Magana Discharge Problem: Pulmonary emboli, Acute UTI Patient Disposition: Admitted As Inpatient Forms Stand Alone Forms: [facility] Prescriptions Prescriptions: No Action simethicone 180 mg Capsule 180 mg PO BID RF: 0 Colace 50 mg Capsule 50 mg PO DAILY RF: 0 docusate sodium [Colace] 100 mg Capsule 200 mg PO DAILY RF: 0 bisacodyl 5 mg Tablet,Delayed Release (Dr/Ec) 5 mg PO DAILY RF: 0 rosuvastatin [Crestor] 20 mg Tablet 20 mg PO QDD RF: 0 lactulose 10 gram/15 mL Solution 10 g PO DAILY PRN (Reason: Constipation) RF: 0 [facility] - Discharge Problem: Pulmonary emboli Qualifiers: Pulmonary embolism type: saddle Chronicity: acute Acute cor pulmonale presence: unspecified Qualified Code(s): I26.92 - Saddle embolus of pulmonary artery without acute cor pulmonale
[2021-03-14] MEDS ORDERED: OPTIRAY 320 125ml IV ONE (13:51)
--- NOTE | 2021-03-14 13:56 | XRay Report ---
SINGLE VIEW CHEST CLINICAL HISTORY: Sepsis. FINDINGS: An AP, portable, upright chest radiograph is obtained. No prior studies are available for c omparison at the time of dictation. The cardiomediastinal silhouette is unremarkable. Enlargement of the central pulmonary arteries suggests pulmonary artery hypertension. The lungs and pleural spaces are clear. No pneumothorax is seen. The bony thorax is grossly intact. IMPRESSION: No active disease in the chest. ACT 112: Negative or not required by law. Electronically signed by: Parviz Blanca M.D. 03/14/2021 2:09 PM
--- NOTE | 2021-03-14 14:34 | CT Scan Report ---
CT ANGIOGRAM OF THE CHEST; CT SCAN OF THE ABDOMEN AND PELVIS WITH IV CONTRAST CLINICAL HISTORY: Atypical chest pain. Dyspnea. Generalized abdominal pain. COMPARISON STUDY: Chest x-ray dated 03/14/2021. TECHNIQUE: Following the IV administration of 120 of Optiray 320, CT angiogram of the chest is perfor med from the upper abdomen to the thoracic inlet utilizing the pulmonary embolus protocol. Images are reviewed in the axial, sagittal, coronal planes. 3-D MIPS images are created and assessed. Subsequen tly, CT scan of the abdomen and pelvis was performed from the lung bases to the proximal femora. Imag es are reviewed in the axial, sagittal, and coronal planes. IV contrast was administered without comp lication. A dose lowering technique was utilized adhering to the principles of ALARA. CT DOSE: 924.86 mGy.cm FINDINGS: CHEST: Thyroid: Imaged portions of the thyroid gland are normal in size and attenuation. Thoracic aorta: The thoracic aorta is normal in caliber and demonstrates standard 3-vessel arch anato my. No dissection is seen. Pulmonary vasculature: The pulmonary trunk is mildly dilated measuring 3.3 cm in transverse diameter. This suggests pulmonary artery hypertension. There is saddle pulmonary embolus with extensive bilate ral pulmonary emboli. Thrombus is seen within the right and left main pulmonary arteries. This extend s into all lobar branches, and reaches segmental and subsegmental branches in all lobes. Heart: The heart is mildly enlarged and without pericardial effusion. The coronary arteries are dense ly calcified. Lungs and pleural spaces: Moderate emphysematous change is noted. There is no airspace consolidation typical for pneumonia or pleural effusion. The trachea and central airways are clear. Scarring/atelec tasis is present at both lung bases. A 3 mm pleural-based nodule in the left lower lobe is seen on im age #175. Mediastinum: There is no mediastinal lymphadenopathy. Meena: Clear. Axillae: There is no axillary lymphadenopathy. Bony thorax: No lytic or blastic lesions are identified. ABDOMEN AND PELVIS: Liver: The contrast-enhanced liver is normal in size, contour, and attenuation. There is no intrahepa tic or ductal dilatation. The hepatic veins and portal veins are patent. Scattered subcentimeter hepa tic hypodensities may represent cysts but are too small for definitive characterization. Gallbladder: Unremarkable. Spleen: Normal in size and attenuation. Pancreas: Unremarkable. Adrenal glands: Unremarkable. Kidneys: The contrast enhanced kidneys are normal in size and without hydronephrosis. The kidneys enh ance symmetrically. A 10 mm cyst is noted in the interpolar left kidney. Abdominal vasculature: There is mild to moderate atherosclerotic calcification as well as ectasia of the abdominal aorta. There is mild aneurysmal dilatation of the common iliac arteries which measure u p to 2.0 cm in diameter. Extensive deep venous thrombosis is seen within the right common femoral vei n. The iliac veins and IVC appear clear. Stomach and bowel: There is a small hiatal hernia. There is postoperative change from left-sided colo n resection with left lower quadrant colostomy. A rectosigmoid stump is noted in the pelvis. No bowel obstruction is seen. There are scattered colonic diverticula without CT evidence of acute diverticul itis. The appendix is well-visualized and normal. There are mildly thick-walled and hyperemic loops of small bowel in the lateral left mid abdomen at the operative site, and small bowel loops appear te thered in this region on image #225. There are tiny foci of extraluminal gas identified adjacent to a small bowel loop seen on axial image #252. There is a thin and peripherally enhancing fluid containi ng tract in this region seen on image #280 which extends inferiorly from the tethered loops. This may represent a tract from a previous drain. A small fistula is not excluded. There is gas within this t ract on image #206. Peritoneum: There is no intraperitoneal free air below the diaphragm. No abdominal ascites is seen. T here is diastases of the ventral abdominal wall. Lymphadenopathy: None. Pelvic viscera: The bladder wall is thickened and trabeculated indicating chronic outlet obstruction. There are foci of intraluminal gas. The prostate gland is enlarged and heterogeneous noting median l obe hypertrophy. Question previous prostate surgery. Skeletal structures: No lytic or blastic lesions are seen. IMPRESSION: 1. Saddle embolus with extensive bilateral pulmonary emboli as above. 2. Cardiomegaly and emphysema. 3. There is no airspace consolidation typical for pneumonia or pleural effusion. 4. There is postoperative change from left-sided colon resection with left lower quadrant colostomy a nd rectosigmoid stump formation. No bowel obstruction is seen. 5. There are mildly thick-walled and hyperemic loops of small bowel in the left lateral abdomen at th e resection site which appeared somewhat tethered. Additionally, there are tiny foci of extraluminal gas adjacent to one of the small bowel loops. This may represent postoperative change and adhesions. A focal enteritis and contained perforation is not excluded. Clinical correlation will be essential. 6. Additionally, there is a thin and peripherally enhancing fluid-filled tract extending inferiorly f rom the tethered small bowel loops. This may represent a site of previous surgical drain, or possibly a developing fistula. 7. No organized/triple fluid collection is identified. 8. No intraperitoneal free air seen below the diaphragm. 9. There is nonspecific gas within the bladder lumen. Correlate with clinical findings and urinalysis . 10. Postoperative change is suggested in the prostate and there is evidence of chronic bladder outlet obstruction. 11. Deep venous thrombosis is present in the right common femoral vein. 12. Diastases of the ventral abdominal wall. 13. A 3 mm pleural-based nodule is seen in the left lower lobe. This can be followed if clinically wa rranted. See below. 14. Additional findings as above. Please refer to below summary of Fleischner criteria recommendations for follow-up of incidental CT n odules (Thais Barrientos, Guidelines for management of small pulmonary nodules detected on CT scans: A sta tement from the Fleischner Society, Radiology 237: [phone].) SOLID NODULES Solitary nodule size: <6 mm * low risk patients: no follow-up needed * high risk patients: optional CT at 12 months Solitary nodule size: 6-8 mm * low risk patients: follow-up at 6-12 months, then consider further follow-up at 18-24 months * high risk patients: initial follow-up CT at 6-12 months and then at 18-24 months if no change Solitary nodule size: >8 mm * either low or high risk patients - consider follow-up CT at 3 months, and/or CT-PET, and/or biopsy Multiple nodules size: <6 mm * low risk patients: no routine follow-up * high risk patients: optional CT at 12 months Multiple nodules size: 6-8 mm * low risk patients: follow-up at 3-6 months, then consider further follow-up at 18-24 months * high risk patients: follow-up at 3-6 months, then at 18-24 months if no change Multiple nodules size: >8 mm * low risk patients: follow-up at 3-6 months, then consider further follow-up at 18-24 months * high risk patients: follow-up at 3-6 months, then at 18-24 months if no change Note: newly detected indeterminate nodule in persons 35 years of age or older. * low risk patients: minimal or absent history of smoking and/or other known risk factors * high risk patients: history of smoking or of other known risk factors (e.g. first degree relative with lung cancer, or exposure to asbestos, radon, uranium) * if a nodule up to 8 mm is partly solid or is ground glass further follow-up is required after 24 m onths to exclude possible slow growing adenocarcinoma ([facility]) SUBSOLID NODULES Solitary pure ground-glass nodule * nodule size <6 mm - no CT follow-up required * nodule size >=6 mm - follow-up CT at 6-12 months, then every 2 years until 5 years Solitary part-solid nodule * nodule size <6 mm - no CT follow-up required * nodule size >=6 mm - follow-up CT at 3-6 months. If unchanged, and solid component remains <6 mm, then annual follow-up for 5 years Multiple subsolid nodules * nodule size <6 mm - follow-up CT at 3-6 months, consider further follow-up at 2 and 4 years if sta ble * nodule size >=6 mm - follow-up CT at 3-6 months, subsequent management based on the most suspiciou s nodule(s) ACT 112: Negative or not required by law. Electronically signed by: Parviz Blanca M.D. 03/14/2021 2:32 PM
[2021-03-14] MEDS ORDERED: VANCOMYCIN HCL 2,250 MG in SODIUM CHLORIDE 0.9% 500 ML IV ONE (14:38)
[2021-03-14] MEDS ORDERED: PIPERACILLIN/TAZOBACTAM 4.5 GM/120 ML BAG IV ONE (14:38)
[2021-03-14] MEDS ORDERED: VANCOMYCIN CONSULT ACTIVE PRN (14:38)
[2021-03-14] MEDS ORDERED: Heparin IV Adult Wt-Based Standard WITH Bolus Protocol IV STA (14:38)
[2021-03-14] MEDS ORDERED: HEPARIN SOD (PORCINE) 1000 UNIT/ML IV ONE (14:54)
[2021-03-14] MEDS: HEPARIN SODIUM/DEXTROSE 25,000 UNITS/500 ML BAG IV SCH (15:09)
[2021-03-14 15:23] LABS: Appearance Urine Turbid (Clear); Bacteria Urine Automated 4+ (Negative); Bilirubin Urine Negative (Negative); Blood Urine 3+ (Negative); Color Urine Yellow; Epithelial Cell Urine Auto 20-30 /lpf (0-5); Glucose Urine UA Negative (Negative); Ketones Urine Negative (Negative); Leukocyte Esterase Urine 3+ (Negative); Nitrite Urine Positive (Negative); Specific Gravity Urine > 1.045 (1.000-1.030); Urobilinogen Urine Negative (Negative); WBC Urine Automated >30 /hpf (0-5); pH Urine 7.5 (4.5-7.5)
[2021-03-14 15:27] LABS: Protein Urine 2+ (Negative)
[2021-03-14 15:38] LABS: RBC Urine Automated >30 /hpf (0-4)
[2021-03-14] MEDS ORDERED: ONDANSETRON INJ 2 MG/ML 2 ML VIAL IV STA (15:49)
--- NOTE | 2021-03-14 16:14 | History & Physical Report ---
Date of Service March 14, 2021 Assessment & Plan (1) Acute massive pulmonary embolism: * Presumed provoked given recent surgery and mostly bedbound state as he has been lying in the [facility] for wound care * Given the extensive clot seen on imaging, Dr. Munson did reach out to interventional radiology to discuss if catheter guided thrombolysis was warranted. Patient has a relative contraindication given his recent surgical intervention * Plan is for anticoagulation therapy with heparin drip (titration per protocol) * Patient will be placed in the ICU given the fact that he has a massive PE with associated tachycardia. His blood pressure is stable. He could very easily deteriorate rapidly and should have close monitoring * He is a full code * I have ordered a hypercoagulable panel including factor V Leiden, lupus anticoagulant, protein S, protein C, and antithrombin 3; however, I suspect this is likely provoked given his recent surgical intervention and the fact that he has been laying in bed in the [facility] given the wound on his abdomen * obtain venous Dopplers of the bilateral lower extremities to rule out DVT * Obtain echocardiogram to assess for LV function and right-sided heart strain. If right-sided heart strain noted, would advise follow-up echo in 3 months * Will allow for morphine IV as needed for pain; however, nursing staff should hold for sedation or hemodynamic instability * Patient does have associated wheezing. Will allow for Xopenex (as to decrease risk of further tachycardia) and reassess in a.m. (2) Elevated troponin: * Suspects elevated due to supply demand ischemia secondary to #1 * Will cycle out cardiac enzymes * If enzymes continue to uptrend, will consult cardiology * Echocardiogram ordered * Will hold off on any topical nitropaste to avoid preload reduction due to extensive PE (3) Abnormal urinalysis: * Patient is completely asymptomatic * May have a urinary tract infection given recent instrumentation from his TURP procedure approximately 5 weeks ago * Uncertain if this was a clean-catch or contaminated specimen * Will repeat a urinalysis (clean-catch) with urine culture * Patient did receive Zosyn/vancomycin in the ED * Will hold off on further antibiotic therapy until repeat urinalysis obtained (4) Wound of abdomen: * Patient with abnormal CT findings to suggest postoperative changes versus developing fistula * Would favor postoperative changes as patient has no complaints of abdominal pain, nausea or vomiting. * The wound is clean and dry. Clinically, it does not appear to be infected. * His white count is only slightly elevated at 11.4; however, this is likely the beginning of a leukemoid reaction secondary to #1. * Will obtain a procalcitonin to help differentiate * Patient did have a CTA of the chest with follow-through CT of the abdomen and pelvis. Over the next 24 to 48 hours, would advise repeat CT of the abdomen pelvis with IV and oral contrast to further identify. If repeat CT of the abdomen pelvis abnormal, would consult GI * Will obtain records from [facility] * Consult wound nurse for wound VAC and recommendations (5) Tachycardia: * Secondary to PE * Will hold off on any rate reduction medications at this point in time as to not cause cardiac decompensation (6) Transaminitis: * Will hold statin therapy for now and trend * If continues to remain elevated, will ultrasound liver/right upper quadrant and obtain further labs (7) Elevated lipase: * Patient has no evidence of abdominal pain and no CT evidence of pancreatitis. * IV fluids on board. Will repeat in a.m. * Could be from recent manipulation of bowel (8) HLD (hyperlipidemia): * Chronic. Hold statin therapy as discussed above. May need a drug holiday (9) Diverticular disease: * S/P diverting colostomy (10) BPH (benign prostatic hyperplasia): * S/p recent TURP (11) Colostomy present: * Consult wound nurse for colostomy care Plan of care has been discussed and agreed upon by Dr. Munson. Further orders as warranted. Further recommendations as outlined History of Present Illness Chief Complaint: SOB and diaphoresis x1 day Primary Care Provider: [facility] Mr. Rene is a 60 y/o WM with a PMHx of BPH, diverticular dz and HLD. He is currently incarcerated at [facility]. He presented to the ED with c/o AOB that started today. Pt is somewhat of a vague historian. He has had somewhat of a complicated course over the past 5 weeks. He was previously incarcerated at [facility]. He underwent a TURP procedure at [facility] that was uneventful. At that time, he was dealing with mild abd pain and has known diverticulitis. Following the TURP procedure, he ended up back at [facility] (given limited details) and claims that he had a perforated tic and ended up with a diverting colostomy. Uncertain of the surgeon. Subsequently, developed a nonhealing wound on the right mid abd requiring a wound wac. Was unable to receive wound care at [facility] and was relocated to [facility] here in [place]. Has been mostly bedbound. Was able to go to the bathroom and perform limited activity without issues. Today, he attempted to walk and developed an abrupt onset of TROTTER and diaphoresis. Symptoms did not improve with rest. He then developed CP (substernal) with radiation into his jaw and left subscapular region. Reports a cough but no hemoptysis. Pulse ox was reported to be 81% and he was started on supplemental o2 and transported to the Ed for further eval and care. W/U in the ED showed sinus tachycardia of 120-130BPM with a normal BP (116/78). Pulse ox was 93% on RA. WBC was 11.4. His metabolic panel was WNL. Troponin was elevated 0.31. Lipase was slightly elevated at 610. Lactic acid was WNL at 1.0. CXR howed no acute pathology. CTA showed evidence of Massive Saddle PE with entension faustina the segmental and subsegmental braches and thrombus noted in the right and left main pulmonary arteries. Coincidentally there were some abnormal findings involving the abd/pelvis which could represent postoperative changes vs developing fistula. Patient does have a known wound and typically has a wound wav. Wound vac currently not in place d/t colostomy somehow leaking into wound vac during dressing change (?). To be replaced tomorrow. Denies F/C, abd pain, N/V. Allergies Allergy/AdvReac Type Severity Reaction Status Date / Time No Known Allergies Allergy Unverified 03/14/21 16:05 Home Medications Medication Instructions Recorded Confirmed Type bisacodyl 5 mg PO DAILY 03/14/21 03/14/21 History docusate sodium [Colace] 50 mg PO DAILY 03/14/21 03/14/21 History docusate sodium [Colace] 200 mg PO DAILY 03/14/21 03/14/21 History lactulose 10 g PO DAILY PRN 03/14/21 03/14/21 History rosuvastatin [Crestor] 20 mg PO QDD 03/14/21 03/14/21 History simethicone 180 mg PO BID 03/14/21 03/14/21 History Past Med/Surg History Medical History (Updated 03/14/21 @ 17:22 by Olimpia Hensley PA-C) BPH (benign prostatic hyperplasia) Diverticulitis of colon with perforation HLD (hyperlipidemia) No pertinent family history Surgical History (Updated 03/14/21 @ 16:08 by Olimpia Hensley PA-C) History of bilateral inguinal herniorrhaphies Hx of colostomy S/P TURP Social History (Updated 03/14/21 @ 16:09 by Olimpia Hensley PA-C) Smoking Status: Former smoker Hx Alcohol Use: No Hx Substance Use: No Communication Ability: Effective Floriculturist Required: No Beliefs That Will Affect Care: None Current Living Situation: Other Current Living Situation Comment: [facility] system Feels Safe at Home: Yes Assistive Devices: None Review of Systems Constitutional: + sweats; no fever, no fatigue, no weakness and no anorexia Ear, Nose, Mouth, Throat: no ear pain, no nasal congestion and no nasal obstruction Respiratory: + cough, + dyspnea, + dyspnea on exertion, + sputum production and + wheezing; no chest congestion, no hemoptysis, no pain on inspiration and no pain with cough Cardiovascular: + chest pain, + dyspnea, + dyspnea at rest and + dyspnea on exertion; no chest pain at rest and no palpitations Gastrointestinal: no abdominal pain, no bloating, no nausea and no vomiting Genitourinary: + urinary frequency (s/p turp); no dysuria and no urinary hesitancy Musculoskeletal: + back pain (left subscapular) + right calf pain Integumentary: known wound on abd- receiving wound care with wound vac Neurologic: no gait abnormality and no falls Physical Exam Constitutional: Awake and alert. Resting comfortably on gurney. Does have marked conversational dyspnea gasping after every 3rd-4th word ENMT: Head is atraumatic, normocephalic. Buccal mucosa is moist and pink Neck: Supple and nontender Respiratory: As stated above, breathing comfortably while at rest. No accessory muscle use. On ambient air. Breathing is nonlabored. Does have marked conversational dyspnea gasping after every 3rd-4th word. Diminished breath sounds throughout with end inspiratory and end expiratory wheezes heard on the left anterior chest Cardiovascular: Distant heart sounds with mild sinus tachycardia of 118 Gastrointestinal (Abdomen): Abdomen mildly distended. Does have a functional colostomy with stool in the left midabdomen. Stoma is present and pink. The right midabdomen has a large wound that is approximately 5 cm in width and 10 cm 0 more in length. The edges are not as deep as the center of the wound. The wound is pink without active drainage. No obvious tunneling that I can see. Bowel sounds are normoactive x4. Abdomen is soft and nontender in all quadrants Musculoskeletal: No obvious gross deformities noted throughout. Patient is shackled to the bed. He does not have any erythema or edema of the bilateral lower extremities. He does have right calf pain but a negative Homans' sign bilaterally. No palpable cord appreciated. Skin: See abdomen for discussion of wound Neurologic: Patient is awake and alert. He is oriented to person, place, time and situation. Results & Data Results & Data ([facility]) Vital Signs (Past 12 Hours) Vital Signs Temp Pulse Pulse Resp BP BP Pulse Ox 03/14/21 15:40 136 H 20 118/93 95 03/14/21 14:50 120 H 22 03/14/21 14:40 120 H 18 03/14/21 14:31 122 H 21 03/14/21 14:30 125 H 16 116/78 03/14/21 14:20 125 H 18 03/14/21 14:10 120 H 17 03/14/21 14:04 122 H 20 119/85 93 03/14/21 14:03 122 H 16 92 03/14/21 13:40 120 H 21 94 03/14/21 13:31 126 H 19 94 03/14/21 13:30 127 H 19 107/77 94 03/14/21 13:27 126 H 19 127/79 95 03/14/21 13:20 126 H 15 03/14/21 13:10 128 H 19 03/14/21 13:00 127 H 19 03/14/21 12:50 129 H 17 03/14/21 12:40 130 H 18 03/14/21 12:33 36.3 C L 129 H 19 119/77 94 03/14/21 12:31 128 H 17 94 03/14/21 12:30 130 H 19 119/77 94 03/14/21 12:24 129 H 17 95 03/14/21 12:20 127 H 15 123/79 94 Laboratory Results Laboratory Results - last 24 hr 03/14/21 03/14/21 03/14/21 12:47 12:47 12:47 WBC 11.40 H RBC 4.27 L Hgb 10.8 L Hct 35.2 L MCV 82.4 MCH 25.3 MCHC 30.7 L RDW Std Deviation 50.3 H RDW Coeff of Heron 16.7 H Plt Count 401 H MPV 9.1 Immature Gran % (Auto) 0.3 Neut % (Auto) 84.4 Lymph % (Auto) 8.1 Walton % (Auto) 6.9 Eos % (Auto) 0.2 Baso % (Auto) 0.1 Neut # (Auto) 9.63 H Lymph # (Auto) 0.92 L Walton # (Auto) 0.79 H Eos # (Auto) 0.02 Baso # (Auto) 0.01 Immature Gran # (Auto) 0.03 H PT 11.0 INR 1.1 APTT 22.5 PTT Ratio 0.9 Sodium 134 L Potassium 4.1 Chloride 99 Carbon Dioxide 25 Anion Gap 10.0 BUN 14 Creatinine 1.02 Est Cr Clr Drug Dosing 83.5 Est GFR ( Amer) 91.5 Est GFR (Non-Af Amer) 79.0 BUN/Creatinine Ratio 14.1 Glucose 119 H Lactate Calcium 9.9 Magnesium 2.1 Total Bilirubin 0.5 AST 48 H ALT 114 H Alkaline Phosphatase 155 H Troponin I 0.327 H* Total Protein 9.5 H Albumin 2.9 L Globulin 6.6 H Albumin/Globulin Ratio 0.4 L Lipase Procalcitonin Urine Color Urine Appearance Urine pH Ur Specific [place] Urine Protein Urine Glucose (UA) Urine Ketones Urine Blood Urine Nitrite Urine Bilirubin Urine Urobilinogen Ur Leukocyte Esterase Urine WBC (Auto) Urine RBC (Auto) U Hyaline Cast (Auto) U Epithel Cells (Auto) Urine Bacteria (Auto) Urine Yeast COVID-19 Eval Order SARS-CoV-2 (PCR) 03/14/21 03/14/21 03/14/21 12:47 12:47 12:47 WBC RBC Hgb Hct MCV MCH MCHC RDW Std Deviation RDW Coeff of Heron Plt Count MPV Immature Gran % (Auto) Neut % (Auto) Lymph % (Auto) Walton % (Auto) Eos % (Auto) Baso % (Auto) Neut # (Auto) Lymph # (Auto) Walton # (Auto) Eos # (Auto) Baso # (Auto) Immature Gran # (Auto) PT INR APTT PTT Ratio Sodium Potassium Chloride Carbon Dioxide Anion Gap BUN Creatinine Est Cr Clr Drug Dosing Est GFR ( Amer) Est GFR (Non-Af Amer) BUN/Creatinine Ratio Glucose Lactate 1.0 Calcium Magnesium Total Bilirubin AST ALT Alkaline Phosphatase Troponin I Total Protein Albumin Globulin Albumin/Globulin Ratio Lipase 610 H Procalcitonin 0.06 Urine Color Urine Appearance Urine pH Ur Specific [place] Urine Protein Urine Glucose (UA) Urine Ketones Urine Blood Urine Nitrite Urine Bilirubin Urine Urobilinogen Ur Leukocyte Esterase Urine WBC (Auto) Urine RBC (Auto) U Hyaline Cast (Auto) U Epithel Cells (Auto) Urine Bacteria (Auto) Urine Yeast COVID-19 Eval Order SARS-CoV-2 (PCR) 03/14/21 03/14/21 03/14/21 15:07 15:07 15:14 WBC RBC Hgb Hct MCV MCH MCHC RDW Std Deviation RDW Coeff of Heron Plt Count MPV Immature Gran % (Auto) Neut % (Auto) Lymph % (Auto) Walton % (Auto) Eos % (Auto) Baso % (Auto) Neut # (Auto) Lymph # (Auto) Walton # (Auto) Eos # (Auto) Baso # (Auto) Immature Gran # (Auto) PT INR APTT PTT Ratio Sodium Potassium Chloride Carbon Dioxide Anion Gap BUN Creatinine Est Cr Clr Drug Dosing Est GFR ( Amer) Est GFR (Non-Af Amer) BUN/Creatinine Ratio Glucose Lactate Calcium Magnesium Total Bilirubin AST ALT Alkaline Phosphatase Troponin I Total Protein Albumin Globulin Albumin/Globulin Ratio Lipase Procalcitonin Urine Color Yellow Urine Appearance Turbid A Urine pH 7.5 Ur Specific [place] > 1.045 H Urine Protein 2+ H Urine Glucose (UA) Negative Urine Ketones Negative Urine Blood 3+ H Urine Nitrite Positive A Urine Bilirubin Negative Urine Urobilinogen Negative Ur Leukocyte Esterase 3+ H Urine WBC (Auto) >30 H Urine RBC (Auto) >30 H U Hyaline Cast (Auto) 1-5 U Epithel Cells (Auto) 20-30 H Urine Bacteria (Auto) 4+ H Urine Yeast Not Reportable COVID-19 Eval Order Covid19 at [facility] SARS-CoV-2 (PCR) NEGATIVE Diagnostic Findings CXR: MPRESSION: No active disease in the chest. CT of the chest, CT of the abdomen pelvis (03/14/2021): Thyroid: Imaged portions of the thyroid gland are normal in size and attenuation. Thoracic aorta: The thoracic aorta is normal in caliber and demonstrates standard 3-vessel arch anatomy. No dissection is seen. Pulmonary vasculature: The pulmonary trunk is mildly dilated measuring 3.3 cm in transverse diameter. This suggests pulmonary artery hypertension. There is saddle pulmonary embolus with extensive bilateral pulmonary emboli. Thrombus is seen within the right and left main pulmonary arteries. This extends into all lobar branches, and reaches segmental and subsegmental branches in all lobes. Heart: The heart is mildly enlarged and without pericardial effusion. The coronary arteries are densely calcified. Lungs and pleural spaces: Moderate emphysematous change is noted. There is no airspace consolidation typical for pneumonia or pleural effusion. The trachea and central airways are clear. Scarring/atelectasis is present at both lung bases. A 3 mm pleural-based nodule in the left lower lobe is seen on image #175. Mediastinum: There is no mediastinal lymphadenopathy. Meena: Clear. Axillae: There is no axillary lymphadenopathy. Bony thorax: No lytic or blastic lesions are identified. ABDOMEN AND PELVIS: Liver: The contrast-enhanced liver is normal in size, contour, and attenuation. There is no intrahepatic or ductal dilatation. The hepatic veins and portal veins are patent. Scattered subcentimeter hepatic hypodensities may represent cysts but are too small for definitive characterization. Gallbladder: Unremarkable. Spleen: Normal in size and attenuation. Pancreas: Unremarkable. Adrenal glands: Unremarkable. Kidneys: The contrast enhanced kidneys are normal in size and without hydronephrosis. The kidneys enhance symmetrically. A 10 mm cyst is noted in the interpolar left kidney. Abdominal vasculature: There is mild to moderate atherosclerotic calcification as well as ectasia of the abdominal aorta. There is mild aneurysmal dilatation of the common iliac arteries which measure up to 2.0 cm in diameter. Extensive deep venous thrombosis is seen within the right common femoral vein. The iliac veins and IVC appear clear. Stomach and bowel: There is a small hiatal hernia. There is postoperative change from left-sided colon resection with left lower quadrant colostomy. A rectosigmoid stump is noted in the pelvis. No bowel obstruction is seen. There are scattered colonic diverticula without CT evidence of acute diverticulitis. The appendix is well-visualized and normal. There are mildly thick-walled and hyperemic loops of small bowel in the lateral left mid abdomen at the operative site, and small bowel loops appear tethered in this region on image #225. There are tiny foci of extraluminal gas identified adjacent to a small bowel loop seen on axial image #252. There is a thin and peripherally enhancing fluid containing tract in this region seen on image #280 which extends inferiorly from the tethered loops. This may represent a tract from a previous drain. A small fistula is not excluded. There is gas within this tract on image #206. Peritoneum: There is no intraperitoneal free air below the diaphragm. No abdominal ascites is seen. There is diastases of the ventral abdominal wall. Lymphadenopathy: None. Pelvic viscera: The bladder wall is thickened and trabeculated indicating chronic outlet obstruction. There are foci of intraluminal gas. The prostate gland is enlarged and heterogeneous noting median lobe hypertrophy. Question previous prostate surgery. Skeletal structures: No lytic or blastic lesions are seen. IMPRESSION: 1. Saddle embolus with extensive bilateral pulmonary emboli as above. 2. Cardiomegaly and emphysema. 3. There is no airspace consolidation typical for pneumonia or pleural effusion. 4. There is postoperative change from left-sided colon resection with left lower quadrant colostomy and rectosigmoid stump formation. No bowel obstruction is seen. 5. There are mildly thick-walled and hyperemic loops of small bowel in the left lateral abdomen at the resection site which appeared somewhat tethered. Additionally, there are tiny foci of extraluminal gas adjacent to one of the small bowel loops. This may represent postoperative change and adhesions. A focal enteritis and contained perforation is not excluded. Clinical correlation will be essential. 6. Additionally, there is a thin and peripherally enhancing fluid-filled tract extending inferiorly from the tethered small bowel loops. This may represent a site of previous surgical drain, or possibly a developing fistula. 7. No organized/triple fluid collection is identified. 8. No intraperitoneal free air seen below the diaphragm. 9. There is nonspecific gas within the bladder lumen. Correlate with clinical findings and urinalysis. 10. Postoperative change is suggested in the prostate and there is evidence of chronic bladder outlet obstruction. 11. Deep venous thrombosis is present in the right common femoral vein. 12. Diastases of the ventral abdominal wall. 13. A 3 mm pleural-based nodule is seen in the left lower lobe. This can be followed if clinically warranted. See below. 14. Additional findings as above. Medications Administered Heparin bolus, vancomycin, Zosyn, Zofran, NSS bolus ECG Additional Comments: EKG: Ordered and pending Code Status & VTE Plan Code Status Full code VTE Prophylaxis Plan VTE Prophylaxis will be ordered: Yes Critical Care Time Prolonged Care Time Prolonged Care Time: Yes Total Prolonged Care Time: 90 Dr. Rome called [facility] and spoke to interventional radiology (Dr. Chaves) who reports that patient is not a candidate for cath. guided thrombolysis (relative contraindication given remote surgery) Supervising Physician Co-Signing Physician Notes Patient was seen and examined independently I discussed the case with Olimpia ATKINSON I reviewed pertinent past medical social family history and also the plan of care and agree with the plan of care. 60 M with colostomy from diverticulitis approx 02/14/21 at [facility], was walking this am and developed shortness of breath and chest pain, he was having right calf pain for the last few days. found to have massive PE, discussed thrombolysis with [facility] Dr Hu who did not recommend and recommended just systemic heparin Pt has healing dehisced abdominal wound, colostomy that he states he has had issues with leakage, most recently into his wound. His wound however has good granulation tissue and appears only to be surface dehiscence. Discussed with icu, will have there in case he decompensates, will check echo for heart strain and allow tachycardia as response to events PT is awake and alert, he is breathless with speaking. He has no chords in legs, but does have tender right calf, Likely a provoked event in post op period, but hypercoag panel was sent pt remains on iv therapeutic heparin Any exceptions will be noted below PG Care Time/CCT Total # of Minutes Spent Total Time Spent with Patient: Total time spent is greater than 50% in coordination of care (as documented) at patient's floor/unit and/or counseling patient: Prolonged Care Time Prolonged Care Time: Yes Total Prolonged Care Time: 90 [place] [address] Initial Inpt Care Lvl 3 Patient Type New Medical Decision Making High Complexity Diagnoses Acute massive pulmonary embolism I26.99 Elevated troponin R77.8 Abnormal urinalysis R82.90 Wound of abdomen S31.109A Tachycardia R00.0 Transaminitis R74.01 Elevated lipase R74.8 HLD (hyperlipidemia) E78.5 Hyperlipidemia type: unspecified Diverticular disease K57.90 BPH (benign prostatic hyperplasia) N40.0 Lower urinary tract symptom presence: unspecified whether lower urinary tract symptoms present Colostomy present Z93.3 Additional Codes Prolonged Care Time - Prolonged Care Time: Yes ([id number]) Time Spent (min) 90 (1) BPH (benign prostatic hyperplasia) Lower urinary tract symptom presence: unspecified whether lower urinary tract symptoms present Qualified Code(s): N40.0 - Benign prostatic hyperplasia without lower urinary tract symptoms (2) HLD (hyperlipidemia) Hyperlipidemia type: unspecified Qualified Code(s): E78.5 - Hyperlipidemia, unspecified
[2021-03-14] MEDS ORDERED: MoRPHine SULFATE 2 MG/ML CARP IV PRN (17:14)
[2021-03-14] MEDS ORDERED: ONDANSETRON INJ 2 MG/ML 2 ML VIAL IV PRN (17:14)
[2021-03-14] MEDS ORDERED: LEVALBUTEROL HCL 0.63 MG/3 ML NEB INH PRN (17:14)
[2021-03-14] MEDS ORDERED: HEPARIN SODIUM/DEXTROSE 25,000 UNITS/500 ML BAG IV SCH (17:14)
[2021-03-14] MEDS ORDERED: SODIUM CHLORIDE 0.9% 1000ML 1,000 ML IV SCH (18:00)
--- NOTE | 2021-03-14 19:24 | Critical Care Consultation ---
Date of Consultation March 14, 2021 Assessment & Plan (1) Admitted to intensive care unit: Reason Critically Ill: 60-year-old male presenting with massive pulmonary embolism with saddle component in the setting of likely provoked thromboembolic event with recent surgical interventions and immobility requiring close hemodynamic monitoring and possible need for systemic thrombolysis if he were to deteriorate. NEURO - * CAM ICU: NEGATIVE CARDIAC/VASCULAR - * NSTEMI: * Likely Grade II secondary to cardiac strain in the setting of massive pulmonary embolism. * EKG w/o significant ST changes to suggest myocardial ischemia. * Trend troponin * AM Echo to evaluate for degree of RIGHT heart strain in the setting of PE. * Agree w/ BNP to assess degree of strain as well. * Patient currently w/ marginal blood pressures. Would proceed w/ TPA if the patient were to become hemodynamically unstable. * Compensatory tachycardia secondary to PE. Would avoid rate control currently given degree of clot burden and need for further assessment with Echo. * EKG: Sinus tachycardia @ [address]/T-wave changes. QTc 422 ms. * Monitor on telemetry. RESPIRATORY - * Massive Pulmonary Emboli w/ Saddle Component: * Thankfully, patient not requiring supplemental O2 currently. * Not a candidate for catheter directed TPA 2/2 recent surgical intervention. * Continue w/ heparin gtt. * Low threshold for systemic TPA if the patient were to decompensate. GI/NUTRITION - * Diverticulitis: * s/p colectomy w/ ostomy placement. * Ongoing midline surgical non-healing wound. * Consult wound. RENAL/LYTES - * No significant electrolyte derangements. - * UTI: * Concerning urinalysis on 2 separate studies. * Concerning w/ recent surgical manipulation. * Will continue w/ Zosyn. * See ID ENDO - * No h/o DM or Thyroid Dz * BSGs per unit protocol. ISS --> gtt per unit policy. HEME - * Stable H&H * Monitor for s/s bleeding in the patient requiring Heparin gtt ID - * UTI: * Concerning in the patient w/ recent TURP as well as abdominal surgery w/ concerning CT findings ??fistula formation. * Will continue w/ IV Zosyn pending urinalysis cultures. * Patient at higher risk for anaerobic infection w/ possible GI translocation. LINES/IV ACCESS - * PIVs x2 DVT PROPHYLAXIS - * Heparin gtt * SCDs I have personally spent 35 minutes of critical care time in the direct management of this patient. This is a life/limb threatening event. This includes time spent evaluating patient, direct bedside care, chart review, placing orders, interpretation of diagnostic studies, discussion with consultants, patient, and family members, as well as other required patient management activities. This time is exclusive of all separately billable procedures, and teaching time and separate from and in addition to any other critical care service time. Thank you for allowing us to participate in the care of this patient. Please refer to my attending physician's documentation for any further recommendations. (2) Acute massive pulmonary embolism: (3) Elevated troponin: (4) Tachycardia: (5) Pulmonary emboli: (6) Transaminitis: (7) Acute UTI: (8) Abnormal urinalysis: History of Present Illness Attending Physician: Florian Munson MD History of Present Illness Patient is a 60-year-old male with a significant past medical history of BPH, hyperlipidemia, and diverticulitis who presented to the emergency department today with shortness of breath and pain in his posterior chest. The patient has had a recent complicated medical history. He underwent TURP which was apparently without complication. Shortly after, unfortunately, the patient developed acute diverticular disease requiring surgical intervention which subsequently resulted in ostomy placement. The patient has had nonhealing wound to the mid abdomen which has been requiring a wound VAC. He was transferred from his previous present to [facility] as they have a more advanced medical unit. He reports that he has noticed pain and cramping in the RIGHT lower extremity. He states that he is actually been using his LEFT leg to "massage" the right lower extremity secondary to the discomfort. He states that today he noticed he was having some chest discomfort as well as shortness of breath with speaking. Nursing staff contacted EMS and the patient was brought to the emergency department for further evaluation and management. Patient was noted to be tachycardic with marginal blood pressures. CTA of the chest demonstrates massive pulmonary embolism with saddle component. Patient was started on heparin drip. Consultation with interventional radiology at [facility] was placed. Apparently, given the patient's recent surgical interventions and ongoing abdominal wound, he was not felt to be a candidate for catheter directed lysis. Recommendation was to continue with heparin drip. Thankfully, the patient is not requiring supplemental oxygen. He remains tachycardic. Troponin was elevated as were liver enzymes. No other significant electrolyte abnormalities noted. Lactate was negative. Upon evaluation in the ICU, the patient is awake, alert, and oriented. He states that he feels much better than when he initially arrived. He states that his shortness of breath has improved. He questions possible DVT. He understands current diagnosis with blood clots in his lungs. He does state that he has intermittent pain in his LEFT-sided upper back. Otherwise, he denies any chest pain, pleuritic pain, nausea, vomiting, abdominal pain, or numbness/weakness to the extremities. Allergies Allergy/AdvReac Type Severity Reaction Status Date / Time No Known Allergies Allergy Unverified 03/14/21 16:05 Home Medications Medication Instructions Recorded Confirmed Type bisacodyl 5 mg PO DAILY 03/14/21 03/14/21 History docusate sodium [Colace] 50 mg PO DAILY 03/14/21 03/14/21 History docusate sodium [Colace] 200 mg PO DAILY 03/14/21 03/14/21 History lactulose 10 g PO DAILY PRN 03/14/21 03/14/21 History rosuvastatin [Crestor] 20 mg PO QDD 03/14/21 03/14/21 History simethicone 180 mg PO BID 03/14/21 03/14/21 History Patient History Medical History BPH (benign prostatic hyperplasia) Diverticulitis of colon with perforation HLD (hyperlipidemia) No pertinent family history Surgical History History of bilateral inguinal herniorrhaphies Hx of colostomy S/P TURP Social History Smoking Status: Former smoker Hx Alcohol Use: No Hx Substance Use: No Communication Ability: Effective Manager Editorial Required: No Beliefs That Will Affect Care: None Current Living Situation: Other Current Living Situation Comment: [facility] Feels Safe at Home: Yes Assistive Devices: None Review of Systems Review of Systems: A complete 10 point review of systems was reviewed with the patient with pertinent positives and negatives as per history of present illness. All else were negative. Physical Exam Physical Exam: VITAL SIGNS - Vital signs and nursing notes were reviewed. GENERAL - 60-year-old male appearing his stated age who is in no acute distress. Communicates well with provider and answers questions appropriately. HEAD - NC/AT. EYES - PERRL with EOMI bilaterally. Sclera anicteric. EARS - No deformities of external structures noted on gross examination bilaterally. NOSE - Midline and without cyanosis. No epistaxis or purulent drainage noted. MOUTH/OROPHARYNX - Without perioral cyanosis. Buccal mucosa pink and moist. NECK - Neck with FROM. LUNGS - Chest wall symmetric without accessory muscle use, intercostals retractions, or central cyanosis. Normal vesicular breath sounds CTA B/L. No wheezes, rales, or rhonchi appreciated. CARDIAC - Tachycardic with S1/S2. No murmur, rubs, or gallops appreciated. No reproducible tenderness to palpation appreciated over the anterior chest wall. ABDOMEN - Abdominal contour obese without pulsations or visible masses. Wound dressing to mid abdomen clean, dry, and intact. LEFT sided ostomy w/ output noted. BS normoactive all four quadrants. No tenderness, palpable masses, hepatosplenomegaly, or ascites noted. EXTREMITIES - No clubbing or peripheral cyanosis. RLE edema noted. +3/5 radial and dorsalis pedis pulses palpated throughout. +5/5 strength noted in UE/LE bilaterally. NEUROLOGIC - Cranial nerves II through XII grossly intact. Sensory intact to light touch throughout. PSYCH - A&Ox3 and cooperates fully with examiner. Pt is very pleasant and interacts well with examiner. Results & Data Results & Data ([facility]) Vital Signs (Past 12 Hours) Vital Signs Temp Pulse Pulse Resp BP BP Pulse Ox 03/14/21 19:00 92 03/14/21 18:30 127 H 26 H 93 03/14/21 18:15 133 H 22 94 03/14/21 18:12 130 H 20 100/74 93 03/14/21 18:00 134 H 24 93 03/14/21 17:45 126 H 18 97 03/14/21 17:30 125 H 17 96 03/14/21 17:26 135 H 18 99/75 L 93 03/14/21 17:15 129 H 15 99 03/14/21 17:12 128 H 18 99/75 L 74 L 03/14/21 17:10 93 03/14/21 16:45 131 H 19 92 03/14/21 16:31 131 H 16 95 03/14/21 16:30 130 H 21 108/85 95 03/14/21 16:15 130 H 24 92 03/14/21 16:01 132 H 20 93 03/14/21 16:00 133 H 21 102/73 95 03/14/21 15:45 137 H 24 95 03/14/21 15:40 136 H 20 118/93 95 03/14/21 15:31 132 H 21 95 03/14/21 15:30 131 H 21 118/93 95 03/14/21 15:15 129 H 19 94 03/14/21 15:01 125 H 22 03/14/21 15:00 118 H 23 112/86 03/14/21 14:50 120 H 22 03/14/21 14:40 120 H 18 03/14/21 14:31 122 H 21 03/14/21 14:30 125 H 16 116/78 03/14/21 14:20 125 H 18 03/14/21 14:10 120 H 17 03/14/21 14:04 122 H 20 119/85 93 03/14/21 14:03 122 H 16 92 03/14/21 13:40 120 H 21 94 03/14/21 13:31 126 H 19 94 03/14/21 13:30 127 H 19 107/77 94 03/14/21 13:27 126 H 19 127/79 95 03/14/21 13:20 126 H 15 03/14/21 13:10 128 H 19 03/14/21 13:00 127 H 19 03/14/21 12:50 129 H 17 03/14/21 12:40 130 H 18 03/14/21 12:33 36.3 C L 129 H 19 119/77 94 03/14/21 12:31 128 H 17 94 03/14/21 12:30 130 H 19 119/77 94 03/14/21 12:24 129 H 17 95 03/14/21 12:20 127 H 15 123/79 94 Coding Level of Care Code Critical Care 1st 30-74 mins Diagnoses Admitted to intensive care unit Z78.9 Acute massive pulmonary embolism I26.99 Elevated troponin R77.8 Tachycardia R00.0 Pulmonary emboli I26.92 Acute cor pulmonale presence: unspecified Chronicity: acute Pulmonary embolism type: saddle Transaminitis R74.01 Acute UTI N39.0 Abnormal urinalysis R82.90 Time Spent (min) 35 (1) Pulmonary emboli Acute cor pulmonale presence: unspecified Chronicity: acute Pulmonary embolism type: saddle Qualified Code(s): I26.92 - Saddle embolus of pulmonary artery without acute cor pulmonale
[2021-03-14 21:34] LABS: Partial Thromboplastin Ratio 2.4
[2021-03-14 21:45] LABS: Partial Thromboplastin Time 62.7 Seconds (21.0-31.0)
[2021-03-14 21:54] LABS: Appearance Urine Cloudy (Clear); Bacteria Urine Automated Negative (Negative); Bilirubin Urine Negative (Negative); Blood Urine 2+ (Negative); Color Urine Yellow; Glucose Urine UA Negative (Negative); Ketones Urine Trace (Negative); Leukocyte Esterase Urine 3+ (Negative); Nitrite Urine Positive (Negative); Protein Urine 2+ (Negative); Specific Gravity Urine > 1.045 (1.000-1.030); Urobilinogen Urine Negative (Negative); WBC Urine Automated >30 /hpf (0-5)
[2021-03-14] MEDS ORDERED: PIPERACILL/TAZOBAC CONSULT ACTIVE PRN (23:41)
[2021-03-14] MEDS: PIPERACILLIN/TAZOBACTAM 3.375 GM in DEXTROSE 5% 100 ML IV SCH (23:58)
--- NOTE | 2021-03-15 00:08 | Ultrasound Report ---
ULTRASOUND BILATERAL LOWER EXTREMITY VENOUS CLINICAL HISTORY: Pulmonary embolus COMPARISON STUDY: No priors. TECHNIQUE: Real-time, grayscale, and color Doppler sonography of the deep veins of the right and left lower extremity was performed from the inguinal crease to the calf. Compression and augmentation wer e utilized. FINDINGS: Right lower extremity: There is nearly occlusive deep venous thrombosis identified in the right commo n femoral vein. The superficial femoral and popliteal veins are patent and normally compressible. The greater saphenous vein at the junction with the common femoral vein is clear. The visualized calf ve ins are patent. Nonocclusive deep superficial venous thrombosis is seen in the profunda femoris vein near the junction of the common femoral vein. Left lower extremity: There is no sonographic evidence of deep venous thrombosis identified in the le ft lower extremity. The common femoral, superficial femoral, and popliteal veins are patent and greg lly compressible. The greater saphenous vein and the profunda femoris vein at the junction with the c ommon femoral vein are clear. The visualized calf veins are patent. IMPRESSION: 1. There is nearly occlusive deep venous thrombosis identified in the right common femoral vein. 2. Superficial venous thrombus is present within the right profunda femoris vein. 3. There is no sonographic evidence of deep venous thrombosis in the left lower extremity. ACT 112: Negative or not required by law. Electronically signed by: Parviz Blanca M.D. 03/15/2021 12:06 AM
[2021-03-15 05:58] LABS: Basophils # (auto) 0.03 K/uL (0-0.2); Basophils % (auto) 0.5 %; Eosinophils # (auto) 0.05 K/uL (0-0.5); Eosinophils % (auto) 0.8 %; Hemoglobin 8.8 g/dL (14.0-18.0); Immature Granulocytes # (auto) 0.01 K/uL (0.00-0.02); Immature Granulocytes % (auto) 0.2 %; Lymphocytes # (auto) 1.29 K/uL (1.2-3.4); Lymphocytes % (auto) 20.4 %; Mean Corpuscular Hemoglobin 24.9 pg (25-34); Mean Corpuscular Hgb Conc 30.3 g/dL (32-36); Mean Corpuscular Volume 81.9 fL (80-100); Monocytes # (auto) 0.62 K/uL (0.11-0.59); Monocytes % (auto) 9.8 %; Neutrophils # (auto) 4.31 K/uL (1.4-6.5); Neutrophils % (auto) 68.3 %; Platelet Count 343 K/uL (130-400); RDW Coefficient of Variation 16.6 % (11.5-14.5); RDW Standard Deviation 50.3 fL (36.4-46.3); Red Blood Count 3.54 M/uL (4.7-6.1); White Blood Count 6.31 K/uL (4.8-10.8)
[2021-03-15 06:17] LABS: Partial Thromboplastin Ratio 2.3
[2021-03-15 06:20] LABS: Partial Thromboplastin Time 59.2 Seconds (21.0-31.0)
[2021-03-15 06:44] LABS: Albumin Level 2.3 gm/dl (3.4-5.0); Calcium 8.5 mg/dl (8.5-10.1); Creatinine Clr Calc Pharmacy 106.4 ml/min; Est GFR (African American) 111.7 ml/min; Est GFR (Non-African American) 96.4 ml/min; Magnesium 1.9 mg/dl (1.8-2.4); Phosphorus 3.7 mg/dl (2.5-4.9); Potassium 3.9 mmol/L (3.5-5.1)
[2021-03-15 06:59] LABS: Albumin Globulin Ratio 0.4 (0.9-2); Bilirubin,Total 0.4 mg/dl (0.2-1); Globulin 5.2 gm/dl (2.5-4.0); Total Protein 7.5 gm/dl (6.4-8.2)
[2021-03-15] MEDS: PANTOprazole 40 MG TAB PO SCH (08:07)
[2021-03-15] MEDS: PIPERACILLIN/TAZOBACTAM 3.375 GM in DEXTROSE 5% 100 ML IV SCH (08:08)
[2021-03-15] MEDS: HEPARIN SODIUM/DEXTROSE 25,000 UNITS/500 ML BAG IV SCH (08:08)
[2021-03-15] MEDS ORDERED: LACTATED RINGER'S 1,000 ML IV ONE (08:16)
--- NOTE | 2021-03-15 08:17 | Critical Care Progress Note ---
Date of Service March 15, 2021 Assessment & Plan (1) Admitted to intensive care unit: Impression: 60-year-old male with recent surgery in [place] including TURP complicated by acute diverticulitis requiring colostomy and abdominal wall defect being treated with wound VAC. He has been fairly sedentary and developed chest pain was brought to the emergency room and found to have acute pulmonary embolism with significant clot burden. He was not felt to be a candidate for lysis due to recent surgery and was placed on heparin. He has been tachycardic with marginal blood pressures but has had no requirement for supplemental oxygen. 24-hour events: Patient was admitted to the ICU. He has been maintained on a heparin infusion. No signs of bleeding. He denies syncope presyncope shortness of breath chest pain or lower extremity edema. Recommendations: 1. Neurologic: No current issues 2. Cardiovascular: Hypotension likely secondary to acute PE. He remains tachycardic. Echocardiogram is pending this morning. He may benefit from additional RV preload. We will recheck a troponin and BNP. His lactate was normal on presentation. 3. Pulmonary: Acute PE with significant clot burden: Continue heparin infusion. Should the patient clinically deteriorate, would consider half dose thrombolysis. He does have multiple risk factors for clinical deterioration however the fact that he is doing this well this far out suggests that the likely will continue to do reasonably well. Thrombophilia panel has been ordered however given the patient's massive event and sedentary lifestyles, could make a case for lifelong anticoagulation. 4. GI: Continue ostomy. Wound consult pending for replacement of wound VAC of the abdominal defect and will reevaluate once its replaced. Patient is tolerating p.o. without difficulty and is having no abdominal complaints. Multiple findings on the CT scan may be postsurgical. Would continue to follow. If surgical evaluation is required, the patient likely will need to be tr ansferred back to [place] where most of his surgical care was conducted. 5. Renal: No current issues. Follow electrolytes. 6. : Concerning for potential urinary tract infection. Cultures are c urrently pending. 7. ID: Day #2 Zosyn for presumed nosocomial UTI. Can de-escalate to Rocephin and follow urine cultures. 8. Heme-onc: Continue heparin drip. Patient is anemic this morning. No evidence of acute blood loss. We will follow closely while on anticoagulation and may consider transfusion if hemoglobin drops below 7.5. Patient does have an extensive DVT. No indication for IVC filter as he can be anticoagulated currently. Disposition: The patient remains hemodynamically stable. We will see how he responds to fluid challenge and follow-up on his echocardiogram. Depending on those results, he may be eligible to transfer from the ICU to a telemetry floor. 45 minutes critical care time was spent evaluating managing and stabilizing this patient including discussion with the overnight JODEE in the critical care bedside nurse and on multidisciplinary rounds. (2) Pulmonary emboli: (3) Wound of abdomen: (4) Hypotension: Admission and Anticipated Discharge Date Admission Date: March 14, 2021 Review of Systems Review of Systems: All systems reviewed & are unremarkable except as noted in HPI & below Physical Exam Constitutional: WD/WN, vitals as above Neck: trachea midline, no thyromegaly Respiratory: normal respiratory effort, lungs clear to auscultation Cardiovascular: Rate/Rhythm: + tachycardic Heart Sounds: normal S1 and normal S2; no murmur Palpation: no heave Extremities: no edema Gastrointestinal (Abdomen): Ostomy with liquid output. No tenderness to palpation. Bowel sounds are present in all 4 quadrants. The midline defect is currently dressed. Did not take the dressing down pending wound care evaluation today Musculoskeletal: Extremities: extremities normal to inspection Skin: no rashes, warm and dry Neurologic: Nonfocal exam Lymphatic: no cervical lymphadenopathy Results & Data Results & Data ([facility]) Vital Signs (Past 12 Hours) Vital Signs Temp Pulse Resp BP Pulse Ox 03/15/21 06:12 109 H 22 92/66 L 93 03/15/21 05:12 110 H 20 98/66 L 94 03/15/21 04:12 36.5 C 98 H 26 H 105/74 92 03/15/21 03:12 120 H 26 H 93/70 L 93 03/15/21 01:12 118 H 25 H 100/71 92 03/15/21 00:12 36.6 C 115 H 22 98/66 L 92 03/14/21 23:12 120 H 21 100/68 91 03/14/21 22:12 121 H 22 105/71 90 03/14/21 21:12 127 H 16 98/65 L 91 03/14/21 20:12 36.5 C 122 H 21 92/70 L 91 Laboratory Results 03/15/21 05:40 06/28/21 05:40 BNP 1729 Initial 0.968 Diagnostic Findings Echocardiogram pending. Coding Level of Care Code Critical Care 1st 30-74 mins Diagnoses Admitted to intensive care unit Z78.9 Pulmonary emboli I26.92 Acute cor pulmonale presence: unspecified Chronicity: acute Pulmonary embolism type: saddle Wound of abdomen S31.109A Hypotension I95.9 Time Spent (min) 45 (1) Pulmonary emboli Acute cor pulmonale presence: unspecified Chronicity: acute Pulmonary embolism type: saddle Qualified Code(s): I26.92 - Saddle embolus of pulmonary artery without acute cor pulmonale
[2021-03-15] MEDS ORDERED: cefTRIAXone SODIUM 2,000 MG in DEXTROSE 5% 50 ML IV SCH (08:30)
[2021-03-15 09:53] LABS: Troponin I 0.538 ng/ml (0-0.045)
[2021-03-15] MEDS: DOCUSATE SODIUM 100 MG CAP PO SCH (11:18)
[2021-03-15] MEDS: LACTULOSE SYRUP 20 GM/30 ML UDC PO PRN (11:18)
[2021-03-15 12:05] LABS: Hematocrit (blood only) 28.6 % (42-52); Hemoglobin 8.8 g/dL (14.0-18.0)
--- NOTE | 2021-03-15 13:27 | Hospitalist Progress Note ---
Date of Service March 15, 2021 Assessment & Plan (1) Acute massive pulmonary embolism: * Presumed provoked given recent surgery and mostly bedbound state as he has been lying in the [facility] for wound care * anticoagulation therapy with therapeutic heparin drip (titration per protocol) * pending hypercoagulable panel including factor V Leiden, lupus anticoagulant, protein S, protein C, and antithrombin 3; however, I suspect this is likely provoked given his recent surgical * Venous Doppler confirms right leg DVT * Pending echocardiogram to assess for LV function and right-sided heart strain. troponin and Bnp are elevated (2) Elevated troponin: * Suspects elevated due to demand ischemia * did not continue to trend upward * Echocardiogram results are pending (3) Abnormal urinalysis: * >100k Gram negatives * Patient did receive Zosyn/vancomycin in the ED-> started on Rocephin 2 gms (4) Wound of abdomen: * Patient with abnormal CT findings to suggest postoperative changes versus developing fistula * Would favor postoperative changes as patient has no complaints of abdominal pain, nausea or vomiting. * The wound is clean and dry. Clinically, it does not appear to be infected. * His white count is only slightly elevated at 11.4;normal procalcitonin * will consider to repeat CT of the abdomen pelvis * Will obtain records from [facility] * Consult wound nurse for wound VAC and recommendations (5) Tachycardia: * Secondary to PE * Will hold off on any rate reduction medications at this point in time as to not cause cardiac decompensation (6) Transaminitis: * Will hold statin therapy for now and trend * Liver looked normal on CT abd/pelvis, maybe from passive congestion from right heart strain of PE (7) Elevated lipase: * Patient has no evidence of abdominal pain and no CT evidence of pancreatitis. * IV fluids on board. continues with minor elevation (8) HLD (hyperlipidemia): * Chronic. Hold statin therapy as discussed above. May need a drug holiday (9) Diverticular disease: * S/P diverting colostomy (10) BPH (benign prostatic hyperplasia): * S/p recent TURP (11) Colostomy present: * Consult wound nurse for colostomy care Admission and Anticipated Discharge Date Admission Date: March 14, 2021 Subjective Pt feels somewhat improved, less short of breath with minimal exertion and no chest pain, improved right calf pain also did result with > 100k gram negative uti, started on Rocephin no other abdominal complaints at this time Review of Systems Review of Systems: Mild distress and fatigue no headache, no visual changes no speech or swallowing issues resolution of chest pain, pressure or palpitations improved but mild shortness of breath, cough or wheezes no abdominal pain, nausea or vomiting, diarrhea or constipation no dysuria, hematuria or frequency no focal joint pain or swelling, improving right calf pain no back pain, CVA tenderness or radicular pain no bruising, bleeding or rashes no focal signs of weakness or numbness or altered sensation no complaints of anxiety or depression.. Physical Exam Physical Exam: The patient appeared well nourished and normally developed. Vital signs as documented. Head exam is normocephalic atraumatic Neck is without JVD, thyromegaly, or carotid bruits. Lungs are clear to auscultation, no focal loss of breath sounds Cardiac exam, Rhythm is regular but tachycardic.. No murmurs, rubs or gallops. Abdominal exam reveals normal bowel sounds, soft non tender, no masses Extremities are nonedematous and both pedal pulses are present, right calf is tender to exam Neurologic exam is alert and oriented, no focal loss of strength or sensation Skin is without bruises or rashes Psychologically is without concerns for anxiety or depression Results & Data Results & Data ([facility]) Vital Signs (Past 12 Hours) Vital Signs Temp Pulse Resp BP Pulse Ox 03/15/21 08:00 111 H 03/15/21 06:12 109 H 22 92/66 L 93 03/15/21 05:12 110 H 20 98/66 L 94 03/15/21 04:12 97.7 F 98 H 26 H 105/74 92 03/15/21 03:12 120 H 26 H 93/70 L 93 PG Care Time/CCT Total # of Minutes Spent Total Time Spent with Patient: Total time spent is greater than 50% in coordination of care (as documented) at patient's floor/unit and/or counseling patient: Coding Level of Care Code 52085 Subseq Hosp Care Lvl 3 Diagnoses Acute massive pulmonary embolism I26.99 Elevated troponin R77.8 Abnormal urinalysis R82.90 Wound of abdomen S31.109A Tachycardia R00.0 Transaminitis R74.01 Elevated lipase R74.8 HLD (hyperlipidemia) E78.5 Hyperlipidemia type: unspecified Diverticular disease K57.90 BPH (benign prostatic hyperplasia) N40.0 Lower urinary tract symptom presence: unspecified whether lower urinary tract symptoms present Colostomy present Z93.3 (1) HLD (hyperlipidemia) Hyperlipidemia type: unspecified Qualified Code(s): E78.5 - Hyperlipidemia, unspecified (2) BPH (benign prostatic hyperplasia) Lower urinary tract symptom presence: unspecified whether lower urinary tract symptoms present Qualified Code(s): N40.0 - Benign prostatic hyperplasia without lower urinary tract symptoms
--- NOTE | 2021-03-15 14:58 | XCELERA ---
[id number]
[2021-03-15] MEDS ORDERED: fentaNYL citrate 100 MCG/2 ML VIAL IV PRN (15:44)
[2021-03-15] MEDS ORDERED: KETOROLAC 30 MG/ML VIAL IV ONE (15:44)
[2021-03-16] MEDS: HEPARIN SODIUM/DEXTROSE 25,000 UNITS/500 ML BAG IV SCH ×2 (00:15→19:17)
[2021-03-16 05:35] LABS: Basophils # (auto) 0.03 K/uL (0-0.2); Basophils % (auto) 0.5 %; Eosinophils # (auto) 0.13 K/uL (0-0.5); Eosinophils % (auto) 2.3 %; Hematocrit (blood only) 27.6 % (42-52); Hemoglobin 8.5 g/dL (14.0-18.0); Immature Granulocytes # (auto) 0.01 K/uL (0.00-0.02); Immature Granulocytes % (auto) 0.2 %; Lymphocytes # (auto) 1.45 K/uL (1.2-3.4); Lymphocytes % (auto) 25.8 %; Mean Corpuscular Hemoglobin 24.7 pg (25-34); Mean Corpuscular Hgb Conc 30.8 g/dL (32-36); Mean Corpuscular Volume 80.2 fL (80-100); Monocytes # (auto) 0.45 K/uL (0.11-0.59); Neutrophils # (auto) 3.54 K/uL (1.4-6.5); Neutrophils % (auto) 63.2 %; Platelet Count 358 K/uL (130-400); RDW Coefficient of Variation 16.7 % (11.5-14.5); RDW Standard Deviation 48.6 fL (36.4-46.3); Red Blood Count 3.44 M/uL (4.7-6.1); White Blood Count 5.61 K/uL (4.8-10.8)
[2021-03-16 05:53] LABS: Partial Thromboplastin Ratio 3.1
[2021-03-16 05:57] LABS: Albumin Level 2.2 gm/dl (3.4-5.0); Calcium 8.5 mg/dl (8.5-10.1); Creatinine Clr Calc Pharmacy 119.9 ml/min; Est GFR (African American) 117.4 ml/min; Est GFR (Non-African American) 101.3 ml/min; Magnesium 1.9 mg/dl (1.8-2.4); Potassium 3.8 mmol/L (3.5-5.1)
[2021-03-16 06:03] LABS: Albumin Globulin Ratio 0.4 (0.9-2); Bilirubin,Total 0.3 mg/dl (0.2-1); Globulin 5.1 gm/dl (2.5-4.0); Phosphorus 3.1 mg/dl (2.5-4.9); Total Protein 7.3 gm/dl (6.4-8.2)
[2021-03-16 06:38] LABS: Partial Thromboplastin Time 80.9 Seconds (21.0-31.0)
--- NOTE | 2021-03-16 07:49 | Critical Care Progress Note ---
Date of Service March 16, 2021 Assessment & Plan (1) Admitted to intensive care unit: Impression: 60-year-old male with recent surgery in [place] including TURP complicated by acute diverticulitis requiring colostomy and abdominal wall defect being treated with wound VAC. He has been fairly sedentary and developed chest pain was brought to the emergency room and found to have acute pulmonary embolism with significant clot burden. He was not felt to be a candidate for lysis due to recent surgery and was placed on heparin. He has been tachycardic with marginal blood pressures but has had no requirement for supplemental oxygen. 24-hour events: Continued heparin infusion. One episode of chest pain resolved with Toradol and fentanyl. Hemodynamics improved. Recommendations: 1. Neurologic: No current issues 2. Cardiovascular: Hypotension likely secondary to acute PE. He remains tachycardic but is improving. Echocardiogram does show some RV dilatation with elevated PA pressures. Additional fluids had little effect on his hemodynamics so I think his right-sided filling pressures are adequate. His troponin is decreasing as is his BNP. Recommend follow-up echocardiogram in 3 months. His lactate was normal on presentation. 3. Pulmonary: Acute PE with significant clot burden: Continue heparin infusion. Should the patient clinically deteriorate, would consider half dose thrombolysis. He does have multiple risk factors for clinical deterioration however the fact that he is doing this well this far out suggests that the likely will continue to do reasonably well. Thrombophilia panel has been ordere d however given the patient's massive event and sedentary lifestyles, could make a case for lifelong anticoagulation. Continue heparin for total of 5 days and then can consider transition to DOAC or Coumadin. 4. GI: Continue ostomy. Wound following and will make decision regarding wound VAC replacement. Patient is tolerating p.o. without difficulty and is having no abdominal complaints. Multiple findings on the CT scan may be postsurgical. Would continue to follow. If surgical evaluation is required, the patient likely will need to be transferred back to [place] where most of his surgical care was conducted. His lipase was mildly elevated but is trending down he is having no 5. Renal: No current issues. Follow electrolytes. 6. : Concerning for potential urinary tract infection. Cultures are currently pending. 7. ID: Day #3 antibiotics for nosocomial UTI. Currently on Rocephin. Cultures are growing ESBL E. coli. Resistant to cefepime, sensitive to ertapenem. Will transition to Carbapenem 8. Heme-onc: Continue heparin drip. Patient is anemic this morning. No evidence of acute blood loss. We will follow closely while on anticoagulation and may consider transfusion if hemoglobin drops below 7.5. Patient does have an extensive DVT. No indication for IVC filter as he can be anticoagulated currently. Disposition: The patient remains hemodynamically stable. Okay to transfer the telemetry floor. We will sign off once the patient leaves the intensive care unit. Feel free to contact us with additional questions. 45 minutes coordinating care of this patient including discussion with the overnight JODEE in the critical care bedside nurse and on multidisciplinary rounds. (2) Pulmonary emboli: (3) Wound of abdomen: (4) Hypotension: Admission and Anticipated Discharge Date Admission Date: March 14, 2021 Subjective No complaints this morning. The patient did experience some intermittent chest discomfort last evening which resolved with Toradol and fentanyl. He is remained hemodynamically stable and his blood pressure is improving today. Heart rate continues to improve. He is tolerating a diet. He denies syncope or presyncope. No lower extremity edema or pain. Review of Systems Review of Systems: All systems reviewed & are unremarkable except as noted in HPI & below Physical Exam Constitutional: WD/WN, vitals as above Neck: trachea midline, no thyromegaly Respiratory: normal respiratory effort, lungs clear to auscultation Cardiovascular: Rate/Rhythm: + tachycardic Heart Sounds: normal S1 and normal S2; no murmur Palpation: no heave Extremities: no edema Musculoskeletal: Extremities: extremities normal to inspection Skin: no rashes, warm and dry Lymphatic: no cervical lymphadenopathy Results & Data Results & Data ([facility]) Vital Signs (Past 12 Hours) Vital Signs Temp Pulse Resp BP Pulse Ox 03/16/21 06:14 101 H 22 111/77 96 03/16/21 05:13 100 H 19 101/74 96 03/16/21 04:13 37.5 C 106 H 21 95/74 L 95 03/16/21 03:13 106 H 22 108/77 96 03/16/21 02:13 106 H 19 110/74 96 03/16/21 01:13 110 H 23 100/77 95 03/16/21 00:13 111 H 23 97/75 L 95 03/15/21 23:13 108 H 28 H 104/74 96 03/15/21 22:13 109 H 24 97/72 L 95 03/15/21 21:13 105 H 23 103/76 97 03/15/21 20:13 37.3 C 104 H 21 95/70 L 95 Critical Care Results & Data Vital Signs (Past 12 Hours) Vital Signs Temp Pulse Resp BP Pulse Ox 03/16/21 06:14 101 H 22 111/77 96 03/16/21 05:13 100 H 19 101/74 96 03/16/21 04:13 37.5 C 106 H 21 95/74 L 95 03/16/21 03:13 106 H 22 108/77 96 03/16/21 02:13 106 H 19 110/74 96 03/16/21 01:13 110 H 23 100/77 95 03/16/21 00:13 111 H 23 97/75 L 95 03/15/21 23:13 108 H 28 H 104/74 96 03/15/21 22:13 109 H 24 97/72 L 95 03/15/21 21:13 105 H 23 103/76 97 03/15/21 20:13 37.3 C 104 H 21 95/70 L 95 Lab & Micro Results (Past 24 Hours) RBC 3.44 M/uL (4.7-6.1) L 03/16/21 WBC 5.61 K/uL (4.8-10.8) 03/16/21 Hgb 8.5 g/dL (14.0-18.0) L 03/16/21 Hct 27.6 % (42-52) L 03/16/21 MCV 80.2 fL (80-100) 03/16/21 MCH 24.7 pg (25-34) L 03/16/21 MCHC 30.8 g/dL (32-36) L 03/16/21 RDW Standard Deviation 48.6 fL (36.4-46.3) H 03/16/21 RDW Coefficient of Variation 16.7 % (11.5-14.5) H 03/16/21 Plt Count 358 K/uL (130-400) 03/16/21 MPV 9.0 fL (7.4-10.4) 03/16/21 Neutrophils (%) (Auto) 63.2 % 03/16/21 Lymphocytes (%) (Auto) 25.8 % 03/16/21 Monocytes # (Auto) 0.45 K/uL (0.11-0.59) 03/16/21 Eosinophils # (Auto) 0.13 K/uL (0-0.5) 03/16/21 Immature Granulocyte % (Auto) 0.2 % 03/16/21 Neutrophils # (Auto) 3.54 K/uL (1.4-6.5) 03/16/21 Lymphocytes # (Auto) 1.45 K/uL (1.2-3.4) 03/16/21 Monocytes # (Auto) 0.45 K/uL (0.11-0.59) 03/16/21 Eosinophils # (Auto) 0.13 K/uL (0-0.5) 03/16/21 Basophils # (Auto) 0.03 K/uL (0-0.2) 03/16/21 Immature Granulocyte # (Auto) 0.01 K/uL (0.00-0.02) 03/16/21 Na 137 mmol/L (136-145) 03/16/21 K 3.8 mmol/L (3.5-5.1) 03/16/21 Cl 108 mmol/L (98-107) H 03/16/21 CO2 25 mmol/L (21-32) 03/16/21 Anion Gap 4.0 (3-11) 03/16/21 BUN 8 mg/dl (7-18) 03/16/21 Creatinine 0.71 mg/dl (0.6-1.4) 03/16/21 Estimated GFR ( Amer) 117.4 ml/min 03/16/21 Estimated GFR (Non-Af Amer) 101.3 ml/min 03/16/21 Ca 8.5 mg/dl (8.5-10.1) 03/16/21 Phosphorus Level 3.1 mg/dl (2.5-4.9) 03/16/21 Total Bilirubin 0.3 mg/dl (0.2-1) 03/16/21 AST 43 U/L (15-37) H 03/16/21 ALT 90 U/L (12-78) H 03/16/21 Alkaline Phosphatase 106 U/L (45-117) 03/16/21 TP 7.3 gm/dl (6.4-8.2) 03/16/21 Albumin 2.2 gm/dl (3.4-5.0) L 03/16/21 Globulin 5.1 gm/dl (2.5-4.0) H 03/16/21 Albumin/Globulin Ratio 0.4 (0.9-2) L 03/16/21 Mg 1.9 mg/dl (1.8-2.4) 03/16/21 05:19 03/16/21 Calcium Level 8.5 mg/dl (8.5-10.1) 03/16/21 05:19 03/16/21 Microbiology 03/14/21 15:14 Urine Culture - Preliminary Urine,Clean Catch Escherichia coli ESBL 03/14/21 12:47 Aerobic Blood Culture - Preliminary Blood No growth in Aerobic bottle after 24 hours. Anaerobic Blood Culture - Preliminary No growth in Anaerobic bottle after 24 hours. 03/14/21 12:47 Aerobic Blood Culture - Preliminary Blood No growth in Aerobic bottle after 24 hours. Anaerobic Blood Culture - Preliminary No growth in Anaerobic bottle after 24 hours. I & O Totals 24 Hours 03/15/21 03/16/21 03/17/21 06:59 06:59 06:59 Intake Total 3787.5 / 3787.5 3449.5 / 3449.5 9.333 / 9.333 Output Total 925 / 925 2451 / 2451 Balance 2862.5 / 2862.5 998.5 / 998.5 9.333 / 9.333 Cumulative 03/14/21 12:05 thru 03/16/21 07:02 Intake Total 7246.333 Output Total 3376 Balance 3870.333 RT Ventilator Mngmt (Last Documented) Ventilator Ordered Settings Respiratory Rate 22 03/16/21 06:14 Ventilator - PT Measurements Respiratory Rate 22 Coding Level of Care Code 10301 Subseq Hosp Care Lvl 3 Diagnoses Admitted to intensive care unit Z78.9 Pulmonary emboli I26.92 Acute cor pulmonale presence: unspecified Chronicity: acute Pulmonary embolism type: saddle Wound of abdomen S31.109A Hypotension I95.9 (1) Pulmonary emboli Acute cor pulmonale presence: unspecified Chronicity: acute Pulmonary embolism type: saddle Qualified Code(s): I26.92 - Saddle embolus of pulmonary artery without acute cor pulmonale
[2021-03-16] MEDS ORDERED: MEROPENEM CONSULT ACITVE PRN (07:50)
[2021-03-16] MEDS ORDERED: MEROPENEM 500 MG in SYRINGE 0 ML IV SCH (08:00)
--- NOTE | 2021-03-16 08:01 | Hospitalist Progress Note ---
Date of Service March 16, 2021 Assessment & Plan (1) Acute massive pulmonary embolism: * Presumed provoked given recent surgery and mostly bedbound state as he has been lying in the [facility] for wound care * anticoagulation therapy with therapeutic heparin drip (titration per protocol) * pending hypercoagulable panel including factor V Leiden, lupus anticoagulant, protein S, protein C, and antithrombin 3; however, I suspect this is likely provoked given his recent surgical * Venous Doppler confirms right leg DVT * Echo suggests RV dilation and elevated right heart pressures, recommended 3 mo follow up (2) Elevated troponin: * Suspects elevated due to demand ischemia * did not continue to trend upward * Echocardiogram results are without RWMA (3) Abnormal urinalysis: * >100k ESBL e coli, was on rocephin, changed to meropenem (4) Wound of abdomen: * Patient with abnormal CT findings to suggest postoperative changes versus developing fistula * Would favor postoperative changes as patient has no complaints of abdominal pain, nausea or vomiting. * The wound is clean and dry. Clinically, it does not appear to be infected. * His white count was only slightly elevated at 11.4;normal procalcitonin * Consult wound nurse for wound VAC and recommendations (5) Tachycardia: * Secondary to PE * Will hold off on any rate reduction medications at this point in time as to not cause cardiac decompensation (6) Transaminitis: * Will hold statin therapy for now and trend * Liver looked normal on CT abd/pelvis, maybe from passive congestion from right heart strain of PE (7) Elevated lipase: * Patient has no evidence of abdominal pain and no CT evidence of pancreatitis. * IV fluids on board. continues with minor elevation (8) HLD (hyperlipidemia): * Chronic. Hold statin therapy as discussed above. May need a drug holiday (9) Diverticular disease: * S/P diverting colostomy (10) BPH (benign prostatic hyperplasia): * S/p recent TURP (11) Colostomy present: * Consult wound nurse for colostomy care (12) Anemia: pt did have some decline in hgb this is secondary to dilution, no signs of blood loss,nearly microcytic, will check iron and vitamin levels Admission and Anticipated Discharge Date Admission Date: March 14, 2021 Subjective this pt is feeling much better wound vac placed, pt still with exertional tachycardia, otherwise eating and have colostomy output Review of Systems Review of Systems: Mild distress and fatigue no headache, no visual changes no speech or swallowing issues resolution of chest pain, pressure or palpitations improved but mild shortness of breath, cough or wheezes no new abdominal pain, nausea or vomiting, ostomy output is usual for him no dysuria, hematuria or frequency no focal joint pain or swelling, improving right calf pain no back pain, CVA tenderness or radicular pain no bruising, bleeding or rashes no focal signs of weakness or numbness or altered sensation no complaints of anxiety or depression.. Physical Exam Physical Exam: The patient appeared well nourished and normally developed. Vital signs as documented. Head exam is normocephalic atraumatic Neck is without JVD, thyromegaly, or carotid bruits. Lungs are clear to auscultation, no focal loss of breath sounds Cardiac exam, Rhythm is regular but tachycardic.. No murmurs, rubs or gallops. Abdominal exam reveals normal bowel sounds, soft non tender, no masses, no significant tenderness to lateral abdominal wound Extremities are nonedematous and both pedal pulses are present, right calf is t annabelle to exam Neurologic exam is alert and oriented, no focal loss of strength or sensation Skin is with abdominal wound healing by secondary intent, wound vacc in place, Psychologically is without concerns for anxiety or depression Results & Data Results & Data ([facility]) Vital Signs (Past 12 Hours) Vital Signs Temp Pulse Resp BP Pulse Ox 03/16/21 06:14 101 H 22 111/77 96 03/16/21 05:13 100 H 19 101/74 96 03/16/21 04:13 99.5 F 106 H 21 95/74 L 95 03/16/21 03:13 106 H 22 108/77 96 03/16/21 02:13 106 H 19 110/74 96 03/16/21 01:13 110 H 23 100/77 95 03/16/21 00:13 111 H 23 97/75 L 95 03/15/21 23:13 108 H 28 H 104/74 96 03/15/21 22:13 109 H 24 97/72 L 95 03/15/21 21:13 105 H 23 103/76 97 03/15/21 20:13 99.1 F 104 H 21 95/70 L 95 PG Care Time/CCT Total # of Minutes Spent Total Time Spent with Patient: Total time spent is greater than 50% in coordination of care (as documented) at patient's floor/unit and/or counseling patient: Coding Level of Care Code 60063 Subseq Hosp Care Lvl 3 Diagnoses Acute massive pulmonary embolism I26.99 Elevated troponin R77.8 Abnormal urinalysis R82.90 Wound of abdomen S31.109A Tachycardia R00.0 Transaminitis R74.01 Elevated lipase R74.8 HLD (hyperlipidemia) E78.5 Hyperlipidemia type: unspecified Diverticular disease K57.90 BPH (benign prostatic hyperplasia) N40.0 Lower urinary tract symptom presence: unspecified whether lower urinary tract symptoms present Colostomy present Z93.3 Anemia D64.9 (1) BPH (benign prostatic hyperplasia) Lower urinary tract symptom presence: unspecified whether lower urinary tract symptoms present Qualified Code(s): N40.0 - Benign prostatic hyperplasia without lower urinary tract symptoms (2) HLD (hyperlipidemia) Hyperlipidemia type: unspecified Qualified Code(s): E78.5 - Hyperlipidemia, unspecified
[2021-03-16] MEDS: DOCUSATE SODIUM 100 MG CAP PO SCH (08:40)
[2021-03-16] MEDS: PANTOprazole 40 MG TAB PO SCH (08:40)
[2021-03-16] MEDS: ERTAPENEM SODIUM 1,000 MG in SODIUM CHLORIDE 0.9% 50 ML IV SCH (10:49)
--- NOTE | 2021-03-16 11:07 | Electrocardiogram Report ---
Test Reason : Blood Pressure : / mmHG Vent. Rate : 126 BPM Atrial Rate : 126 BPM P-R Int : 174 ms QRS Dur : 084 ms QT Int : 282 ms P-R-T Axes : 080 081 057 degrees QTc Int : 408 ms Sinus tachycardia Otherwise normal ECG No previous ECGs available Confirmed by Samuel Chiang ([id number]) on 03/16/2021 11:07:22 AM Referred By: [facility] Confirmed By:Samuel Chiang
--- NOTE | 2021-03-16 11:15 | Electrocardiogram Report ---
Test Reason : Blood Pressure : / mmHG Vent. Rate : 133 BPM Atrial Rate : 133 BPM P-R Int : 160 ms QRS Dur : 082 ms QT Int : 284 ms P-R-T Axes : 075 066 053 degrees QTc Int : 422 ms Sinus tachycardia Septal infarct , age undetermined Abnormal ECG When compared with ECG of 14-MAR-2021 12:20, (unconfirmed) Septal infarct is now Present Confirmed by Samuel Chiang ([id number]) on 03/16/2021 11:14:37 AM Referred By: [facility] Confirmed By:Samuel Chiang
--- NOTE | 2021-03-16 11:28 | Electrocardiogram Report ---
Test Reason : Blood Pressure : / mmHG Vent. Rate : 111 BPM Atrial Rate : 111 BPM P-R Int : 170 ms QRS Dur : 084 ms QT Int : 332 ms P-R-T Axes : 077 072 059 degrees QTc Int : 451 ms Sinus tachycardia Septal infarct (cited on or before 14-MAR-2021) Abnormal ECG When compared with ECG of 14-MAR-2021 16:53, (unconfirmed) No significant change was found Confirmed by Samuel Chiang ([id number]) on 03/16/2021 11:28:40 AM Referred By: [facility] Confirmed By:Samuel Chiang
[2021-03-16 13:43] LABS: Partial Thromboplastin Time 51.5 Seconds (21.0-31.0)
[2021-03-16] MEDS ORDERED: MoRPHine SULFATE 2 MG/ML CARP IV PRN (15:27)
[2021-03-16] MEDS: MoRPHine SULFATE 4 MG/ML 1 ML CARP\\VIAL IV PRN ×2 (16:16→20:21)
[2021-03-16] MEDS ORDERED: OPTIRAY 320 100ml IV ONE (17:29)
--- NOTE | 2021-03-16 17:50 | CT Scan Report ---
CT abd pelvis oral and IV con CLINICAL HISTORY: Abdominal pain. COMPARISON STUDY: 03/14/2021 TECHNIQUE: The patient was scanned following administration of dilute oral contrast, and in a dynamic helical fashion during intravenous administration of 90 cc of Optiray 320 A dose lowering technique was utilized adhering to the principles of ALARA. CT DOSE: 518.66 mGy.cm FINDINGS: Lower chest: There is a 7 mm nodular focus within the left lower lobe, likely representing focal atel ectasis although the appearance is nonspecific. A 3 month follow-up chest CT might be considered. Liver: The contrast-enhanced liver is normal in size, contour, and attenuation. There is no intrahepa tic biliary ductal dilatation. The hepatic veins and portal veins are patent. Gallbladder: Unremarkable. Spleen: Normal in size and attenuation. There are tiny nonspecific nodules within the fat inferior to the spleen possibly representing tiny splenules Pancreas: Unremarkable. Adrenal glands: Unremarkable. Kidneys: There is symmetric renal cortical enhancement. The kidneys are normal in size without hydron ephrosis. Bowel: There are no transition zones to indicate bowel obstruction. There is a small hiatal hernia. P ostsurgical changes involve the colon. There is a sigmoid stump. There is a left lower quadrant colos joe. The appendix appears normal. There is persistent infiltration of the left mid abdominal mesente william fat adjacent to small bowel loops. There is a single droplet of what appears to be extraluminal g as. There is no discrete abscess.. Peritoneum: There is no ascites. There is rectus diastases. Vasculature: The abdominal aorta is normal in course and caliber. There is a suspected right common f emoral DVT. Adenopathy: None. Pelvic viscera: There is a defect in the bladder base likely secondary to a prior TURP procedure. The re is gas within the bladder. Skeletal structures: No destructive osseous lesions are seen. IMPRESSION: 1. No evidence of bowel obstruction 2. Postsurgical changes of a partial left colonic obstruction with a sigmoid stump and left lower pankaj drant colostomy 3. Persistent infiltration of the fat within the left mid abdomen adjacent to multiple small bowel lo ops with a persistent tiny extraluminal gas bubble. The findings may be postsurgical. There is no aaron dence of a drainable abscess. Continued clinical and imaging follow-up are recommended. 4. Suspected right common femoral DVT 5. Suspected prior TURP procedure. Gas within the bladder. 6. Nonspecific 7 mm pleural-based left lower pulmonary opacity possibly atelectatic ACT 112: Negative or not required by law. Electronically signed by: Tino Fagan M.D. 03/16/2021 5:49 PM
[2021-03-17] MEDS: MoRPHine SULFATE 4 MG/ML 1 ML CARP\\VIAL IV PRN ×3 (03:52→21:15)
[2021-03-17 06:30] LABS: Basophils # (auto) 0.02 K/uL (0-0.2); Basophils % (auto) 0.4 %; Eosinophils # (auto) 0.13 K/uL (0-0.5); Eosinophils % (auto) 2.6 %; Hematocrit (blood only) 29.3 % (42-52); Hemoglobin 8.8 g/dL (14.0-18.0); Immature Granulocytes # (auto) 0.01 K/uL (0.00-0.02); Immature Granulocytes % (auto) 0.2 %; Lymphocytes % (auto) 25.8 %; Mean Corpuscular Hemoglobin 24.6 pg (25-34); Mean Corpuscular Volume 81.8 fL (80-100); Mean Platelet Volume 9.1 fL (7.4-10.4); Monocytes # (auto) 0.39 K/uL (0.11-0.59); Monocytes % (auto) 7.8 %; Neutrophils # (auto) 3.18 K/uL (1.4-6.5); Neutrophils % (auto) 63.2 %; Platelet Count 399 K/uL (130-400); RDW Coefficient of Variation 16.7 % (11.5-14.5); RDW Standard Deviation 50.2 fL (36.4-46.3); Red Blood Count 3.58 M/uL (4.7-6.1); White Blood Count 5.03 K/uL (4.8-10.8)
[2021-03-17 07:03] LABS: Partial Thromboplastin Time 53.8 Seconds (21.0-31.0)
[2021-03-17 07:06] LABS: Albumin Level 2.2 gm/dl (3.4-5.0); Calcium 8.7 mg/dl (8.5-10.1); Creatinine Clr Calc Pharmacy 113.5 ml/min; Est GFR (African American) 114.8 ml/min; Potassium 3.7 mmol/L (3.5-5.1)
[2021-03-17 07:09] LABS: Albumin Globulin Ratio 0.4 (0.9-2); Bilirubin,Total 0.3 mg/dl (0.2-1); Total Protein 7.2 gm/dl (6.4-8.2)
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
[2021-03-17] MEDS: DOCUSATE SODIUM 100 MG CAP PO SCH (10:51)
[2021-03-17] MEDS: ERTAPENEM SODIUM 1,000 MG in SODIUM CHLORIDE 0.9% 50 ML IV SCH (10:51)
[2021-03-17] MEDS: PANTOprazole 40 MG TAB PO SCH (10:52)
--- NOTE | 2021-03-17 12:50 | Electrocardiogram Report ---
Test Reason : Blood Pressure : / mmHG Vent. Rate : 102 BPM Atrial Rate : 102 BPM P-R Int : 180 ms QRS Dur : 086 ms QT Int : 354 ms P-R-T Axes : 078 059 054 degrees QTc Int : 461 ms Sinus tachycardia Otherwise normal ECG When compared with ECG of 15-MAR-2021 06:20, (unconfirmed) No significant change Confirmed by Saumel Chiang ([id number]) on 03/17/2021 12:50:19 PM Referred By: [facility] Confirmed By:Samuel Chiang
[2021-03-17] MEDS: HEPARIN SODIUM/DEXTROSE 25,000 UNITS/500 ML BAG IV SCH (15:10)
[2021-03-17 23:27] LABS: Anti-Thrombin III Activity 100 % normal (80-135); Protein S Functional(Activity) 76 % (70-150)
[2021-03-18] MEDS: HEPARIN SODIUM/DEXTROSE 25,000 UNITS/500 ML BAG IV SCH ×2 (03:31→20:24)
[2021-03-18 06:03] LABS: Basophils # (auto) 0.01 K/uL (0-0.2); Basophils % (auto) 0.2 %; Eosinophils # (auto) 0.15 K/uL (0-0.5); Eosinophils % (auto) 3.5 %; Hematocrit (blood only) 28.1 % (42-52); Hemoglobin 8.6 g/dL (14.0-18.0); Immature Granulocytes # (auto) 0.01 K/uL (0.00-0.02); Immature Granulocytes % (auto) 0.2 %; Lymphocytes # (auto) 1.22 K/uL (1.2-3.4); Lymphocytes % (auto) 28.2 %; Mean Corpuscular Hemoglobin 25.1 pg (25-34); Mean Corpuscular Hgb Conc 30.6 g/dL (32-36); Mean Corpuscular Volume 81.9 fL (80-100); Monocytes # (auto) 0.36 K/uL (0.11-0.59); Monocytes % (auto) 8.3 %; Neutrophils # (auto) 2.57 K/uL (1.4-6.5); Neutrophils % (auto) 59.6 %; Platelet Count 411 K/uL (130-400); RDW Coefficient of Variation 16.7 % (11.5-14.5); RDW Standard Deviation 50.5 fL (36.4-46.3); Red Blood Count 3.43 M/uL (4.7-6.1); White Blood Count 4.32 K/uL (4.8-10.8)
[2021-03-18 06:38] LABS: Albumin Level 2.2 gm/dl (3.4-5.0); Calcium 8.8 mg/dl (8.5-10.1); Creatinine Clr Calc Pharmacy 125.2 ml/min; Est GFR (African American) 119.5 ml/min; Est GFR (Non-African American) 103.1 ml/min; Potassium 3.8 mmol/L (3.5-5.1)
[2021-03-18 06:40] LABS: Albumin Globulin Ratio 0.4 (0.9-2); Bilirubin,Total 0.3 mg/dl (0.2-1); Globulin 5.2 gm/dl (2.5-4.0); Total Protein 7.4 gm/dl (6.4-8.2)
[2021-03-18] MEDS: ERTAPENEM SODIUM 1,000 MG in SODIUM CHLORIDE 0.9% 50 ML IV SCH (08:36)
[2021-03-18] MEDS: PANTOprazole 40 MG TAB PO SCH (08:37)
[2021-03-18] MEDS: DOCUSATE SODIUM 100 MG CAP PO SCH ×2 (10:17→16:29)
[2021-03-18 10:21] LABS: Partial Thromboplastin Time 52.8 Seconds (21.0-31.0)
[2021-03-18] MEDS: MoRPHine SULFATE 4 MG/ML 1 ML CARP\\VIAL IV PRN ×2 (10:58→20:08)
--- NOTE | 2021-03-18 14:27 | Hospitalist Progress Note ---
Date of Service March 18, 2021 Assessment & Plan (1) Acute massive pulmonary embolism: * Presumed provoked given recent surgery and mostly bedbound state as he has been lying in the [facility] for wound care * anticoagulation therapy with therapeutic heparin drip (titration per protocol) * I spoke to [facility]-Term physician, they will use Coumadin, but since he is also on iv ertapenem, will begin Lovenox to Coumadin transition 03/18 * pending hypercoagulable panel including factor V Leiden, lupus anticoagulant, protein S, protein C, and antithrombin 3; however, I suspect this is likely provoked given his recent surgical * Venous Doppler confirms right leg DVT * Echo suggests RV dilation and elevated right heart pressures, recommended 3 mo follow up (2) Elevated troponin: * Suspects elevated due to demand ischemia * did not continue to trend upward * Echocardiogram results are without RWMA (3) Abnormal urinalysis: * >100k ESBL e coli, was on rocephin, changed to ertapenemdue to sensitivities patient will likely need to complete a course of intravenous antibiotics given his recent surgical intervention on his prostate complete 7 days of treatment (4) Wound of abdomen: * Patient with abnormal CT findings to suggest postoperative changes versus developing fistula * Would favor postoperative changes as patient has no complaints of abdominal pain, nausea or vomiting. * The wound is clean and dry. Clinically, it does not appear to be infected. * His white count was only slightly elevated at 11.4;normal procalcitonin * Consult wound nurse for wound VAC and recommendations * * CT abd/pelvis, IMPRESSION: 1. No evidence of bowel obstruction 2. Postsurgical changes of a partial left colonic obstruction with a sigmoid stump and left lower quadrant colostomy 3. Persistent infiltration of the fat within the left mid abdomen adjacent to multiple small bowel loops with a persistent tiny extraluminal gas bubble. The findings may be postsurgical. There is no evidence of a drainable abscess. Continued clinical and imaging follow-up are recommended. 4. Suspected right common femoral DVT 5. Suspected prior TURP procedure. Gas within the bladder. 6. Nonspecific 7 mm pleural-based left lower pulmonary opacity possibly atelectatic (5) Tachycardia: * Secondary to PE continues with improvement (6) Transaminitis: * Will hold statin therapy * Liver looked normal on CT abd/pelvis, maybe from passive congestion from right heart strain of PE (7) Elevated lipase: * Patient has no evidence of abdominal pain and no CT evidence of pancreatitis. * IV fluids on board. continues with minor elevation (8) HLD (hyperlipidemia): * Chronic. Hold statin therapy as discussed above. May need a drug holiday (9) Diverticular disease: * S/P diverting colostomy (10) BPH (benign prostatic hyperplasia): * S/p recent TURP (11) Colostomy present: * Consult wound nurse for colostomy care (12) Anemia: pt did have some decline in hgb this is secondary to dilution, no signs of blood loss,nearly microcytic, will check iron and vitamin levels Admission and Anticipated Discharge Date Admission Date: March 14, 2021 Subjective pt is having only minor pain in abdomen when walking around, has improvement in shortness of breath , tolerating wound vacc without issue Review of Systems Review of Systems: Mild distress and fatigue no headache, no visual changes no speech or swallowing issues resolution of chest pain, pressure or palpitations improved but mild shortness of breath, cough or wheezes no new abdominal pain, nausea or vomiting, ostomy output is usual for him, no leaking no dysuria, hematuria or frequency no focal joint pain or swelling, improving right calf pain no back pain, CVA tenderness or radicular pain no bruising, bleeding or rashes no focal signs of weakness or numbness or altered sensation no complaints of anxiety or depression.. Physical Exam Physical Exam: The patient appeared well nourished and normally developed. Vital signs as documented. Head exam is normocephalic atraumatic Neck is without JVD, thyromegaly, or carotid bruits. Lungs are clear to auscultation, no focal loss of breath sounds Cardiac exam, Rhythm is regular but tachycardic.. No murmurs, rubs or gallops. Abdominal exam reveals normal bowel sounds, soft non tender, no masses, no significant tenderness to lateral abdominal wound Extremities are nonedematous and both pedal pulses are present, right calf is tender to exam Neurologic exam is alert and oriented, no focal loss of strength or sensation Skin is with abdominal wound healing by secondary intent, wound vacc in place, Psychologically is without concerns for anxiety or depression Results & Data Results & Data ([facility]) Vital Signs (Past 12 Hours) Vital Signs Temp Pulse Pulse Resp BP Pulse Ox 03/18/21 12:01 97.9 F 112 H 16 109/75 96 03/18/21 08:00 88 03/18/21 07:36 97.7 F 101 H 16 112/85 96 03/18/21 04:00 98.1 F 100 H 16 119/84 96 PG Care Time/CCT Total # of Minutes Spent Total Time Spent with Patient: Total time spent is greater than 50% in coordination of care (as documented) at patient's floor/unit and/or counseling patient: Coding Level of Care Code 93645 Subseq Hosp Care Lvl 2 Diagnoses Acute massive pulmonary embolism I26.99 Elevated troponin R77.8 Abnormal urinalysis R82.90 Wound of abdomen S31.109A Tachycardia R00.0 Transaminitis R74.01 Elevated lipase R74.8 HLD (hyperlipidemia) E78.5 Hyperlipidemia type: unspecified Diverticular disease K57.90 BPH (benign prostatic hyperplasia) N40.0 Lower urinary tract symptom presence: unspecified whether lower urinary tract symptoms present Colostomy present Z93.3 Anemia D64.9 (1) HLD (hyperlipidemia) Hyperlipidemia type: unspecified Qualified Code(s): E78.5 - Hyperlipidemia, unspecified (2) BPH (benign prostatic hyperplasia) Lower urinary tract symptom presence: unspecified whether lower urinary tract symptoms present Qualified Code(s): N40.0 - Benign prostatic hyperplasia without lower urinary tract symptoms
[2021-03-18 14:32] LABS: Lupus Hex Phase (Rflxdonotord) Negative (Negative)
[2021-03-18] MEDS: WARFARIN SOD 5 MG TAB PO SCH (16:30)
[2021-03-18] MEDS: LACTULOSE SYRUP 20 GM/30 ML UDC PO PRN (16:55)
[2021-03-18] MEDS: ENOXAPARIN 100 MG/1ML SYR SQ SCH (20:03)
[2021-03-19 07:08] LABS: Basophils # (auto) 0.02 K/uL (0-0.2); Basophils % (auto) 0.4 %; Eosinophils % (auto) 2.1 %; Hematocrit (blood only) 30.6 % (42-52); Hemoglobin 9.4 g/dL (14.0-18.0); Immature Granulocytes # (auto) 0.01 K/uL (0.00-0.02); Immature Granulocytes % (auto) 0.2 %; Lymphocytes # (auto) 1.07 K/uL (1.2-3.4); Lymphocytes % (auto) 22.3 %; Mean Corpuscular Hemoglobin 24.5 pg (25-34); Mean Corpuscular Hgb Conc 30.7 g/dL (32-36); Mean Corpuscular Volume 79.9 fL (80-100); Mean Platelet Volume 8.8 fL (7.4-10.4); Monocytes # (auto) 0.34 K/uL (0.11-0.59); Monocytes % (auto) 7.1 %; Neutrophils # (auto) 3.25 K/uL (1.4-6.5); Neutrophils % (auto) 67.9 %; Platelet Count 388 K/uL (130-400); RDW Coefficient of Variation 16.7 % (11.5-14.5); RDW Standard Deviation 48.5 fL (36.4-46.3); Red Blood Count 3.83 M/uL (4.7-6.1); White Blood Count 4.79 K/uL (4.8-10.8)
[2021-03-19 07:21] LABS: INR 1.1 (0.9-1.1); Partial Thromboplastin Ratio 1.2; Partial Thromboplastin Time 31.2 Seconds (21.0-31.0); Prothrombin Time 10.9 Seconds (9.0-12.0)
[2021-03-19] MEDS: ENOXAPARIN 100 MG/1ML SYR SQ SCH ×2 (08:35→19:33)
[2021-03-19] MEDS: ERTAPENEM SODIUM 1,000 MG in SODIUM CHLORIDE 0.9% 50 ML IV SCH (10:06)
[2021-03-19] MEDS: DOCUSATE SODIUM 100 MG CAP PO SCH (11:45)
[2021-03-19] MEDS: MoRPHine SULFATE 4 MG/ML 1 ML CARP\\VIAL IV PRN ×2 (14:32→22:54)
[2021-03-19] MEDS: WARFARIN SOD 5 MG TAB PO SCH (16:39)
--- NOTE | 2021-03-19 18:14 | Hospitalist Progress Note ---
Date of Service March 19, 2021 Assessment & Plan (1) Acute massive pulmonary embolism: * Presumed provoked given recent surgery and mostly bedbound state as he has been lying in the [facility] for wound care * anticoagulation therapy with therapeutic heparin drip (titration per protocol) * I spoke to Correction physician, they will use Coumadin, but since he is also on iv ertapenem, will begin Lovenox to Coumadin transition 03/18 * pending hypercoagulable panel including factor V Leiden, lupus anticoagulant, protein S, protein C, and antithrombin 3; however, I suspect this is likely provoked given his recent surgical * Venous Doppler confirms right leg DVT * Echo suggests RV dilation and elevated right heart pressures, recommended 3 mo follow up (2) Elevated troponin: * Suspects elevated due to demand ischemia * did not continue to trend upward * Echocardiogram results are without RWMA (3) Abnormal urinalysis: * >100k ESBL e coli, was on rocephin, changed to ertapenemdue to sensitivities patient will likely need to complete a course of intravenous antibiotics given his recent surgical intervention on his prostate complete 7 days of treatment (4) Wound of abdomen: * Patient with abnormal CT findings to suggest postoperative changes versus developing fistula * Would favor postoperative changes as patient has no complaints of abdominal pain, nausea or vomiting. * The wound is clean and dry. Clinically, it does not appear to be infected. * His white count was only slightly elevated at 11.4;normal procalcitonin * Consult wound nurse for wound VAC and recommendations * * CT abd/pelvis, IMPRESSION: 1. No evidence of bowel obstruction 2. Postsurgical changes of a partial left colonic obstruction with a sigmoid stump and left lower quadrant colostomy 3. Persistent infiltration of the fat within the left mid abdomen adjacent to multiple small bowel loops with a persistent tiny extraluminal gas bubble. The findings may be postsurgical. There is no evidence of a drainable abscess. Continued clinical and imaging follow-up are recommended. 4. Suspected right common femoral DVT 5. Suspected prior TURP procedure. Gas within the bladder. 6. Nonspecific 7 mm pleural-based left lower pulmonary opacity possibly atelectatic (5) Tachycardia: * Secondary to PE continues with improvement (6) Transaminitis: * Will hold statin therapy * Liver looked normal on CT abd/pelvis, maybe from passive congestion from right heart strain of PE (7) Elevated lipase: * Patient has no evidence of abdominal pain and no CT evidence of pancreatitis. * IV fluids on board. continues with minor elevation (8) HLD (hyperlipidemia): * Chronic. Hold statin therapy as discussed above. May need a drug holiday (9) Diverticular disease: * S/P diverting colostomy (10) BPH (benign prostatic hyperplasia): * S/p recent TURP (11) Colostomy present: * Consult wound nurse for colostomy care (12) Anemia: pt did have some decline in hgb this is secondary to dilution, no signs of blood loss,nearly microcytic, will check iron and vitamin levels Admission and Anticipated Discharge Date Admission Date: March 14, 2021 Subjective pt is having only minor pain in abdomen when walking around, continues with improvement in shortness of breath , tolerating wound vacc without issue changed 03/19/21 Review of Systems Review of Systems: Mild distress and fatigue no headache, no visual changes no speech or swallowing issues resolution of chest pain, pressure or palpitations improved but mild shortness of breath, cough or wheezes no new abdominal pain, nausea or vomiting, ostomy output is usual for him, no leaking no dysuria, hematuria or frequency no focal joint pain or swelling, improving right calf pain no back pain, CVA tenderness or radicular pain no bruising, bleeding or rashes no focal signs of weakness or numbness or altered sensation no complaints of anxiety or depression.. Physical Exam Physical Exam: The patient appeared well nourished and normally developed. Vital signs as documented. Head exam is normocephalic atraumatic Neck is without JVD, thyromegaly, or carotid bruits. Lungs are clear to auscultation, no focal loss of breath sounds Cardiac exam, Rhythm is regular but tachycardic.. No murmurs, rubs or gallops. Abdominal exam reveals normal bowel sounds, soft non tender, no masses, no significant tenderness to lateral abdominal wound Extremities are nonedematous and both pedal pulses are present, right calf is tender to exam Neurologic exam is alert and oriented, no focal loss of strength or sensation Skin is with abdominal wound healing by secondary intent, wound vacc in place, Psychologically is without concerns for anxiety or depression Results & Data Results & Data ([facility]) Vital Signs (Past 12 Hours) Vital Signs Temp Pulse Pulse Resp BP BP Pulse Ox 03/19/21 18:01 97.9 F 97 H 18 135/79 95 03/19/21 16:00 110 H 03/19/21 15:47 98.2 F 102 H 18 133/86 95 03/19/21 11:51 97.7 F 114 H 18 119/81 03/19/21 08:00 93 H 03/19/21 07:37 98.1 F 100 H 16 121/86 99 Pulse Ox 03/19/21 18:01 03/19/21 16:00 03/19/21 15:47 03/19/21 11:51 03/19/21 08:00 98 03/19/21 07:37 PG Care Time/CCT Total # of Minutes Spent Total Time Spent with Patient: Total time spent is greater than 50% in coordination of care (as documented) at patient's floor/unit and/or counseling patient: Coding Level of Care Code 44626 Subseq Hosp Care Lvl 2 Diagnoses Acute massive pulmonary embolism I26.99 Elevated troponin R77.8 Abnormal urinalysis R82.90 Wound of abdomen S31.109A Tachycardia R00.0 Transaminitis R74.01 Elevated lipase R74.8 HLD (hyperlipidemia) E78.5 Hyperlipidemia type: unspecified Diverticular disease K57.90 BPH (benign prostatic hyperplasia) N40.0 Lower urinary tract symptom presence: unspecified whether lower urinary tract symptoms present Colostomy present Z93.3 Anemia D64.9 (1) HLD (hyperlipidemia) Hyperlipidemia type: unspecified Qualified Code(s): E78.5 - Hyperlipidemia, unspecified (2) BPH (benign prostatic hyperplasia) Lower urinary tract symptom presence: unspecified whether lower urinary tract symptoms present Qualified Code(s): N40.0 - Benign prostatic hyperplasia without lower urinary tract symptoms
[2021-03-20] MEDS: ENOXAPARIN 100 MG/1ML SYR SQ SCH ×2 (06:02→18:26)
[2021-03-20] MEDS: MoRPHine SULFATE 4 MG/ML 1 ML CARP\\VIAL IV PRN ×3 (06:11→19:58)
[2021-03-20 06:27] LABS: INR 1.1 (0.9-1.1); Prothrombin Time 11.3 Seconds (9.0-12.0)
[2021-03-20 06:51] LABS: Creatinine Clr Calc Pharmacy 118.3 ml/min; Est GFR (African American) 116.7 ml/min; Est GFR (Non-African American) 100.7 ml/min
[2021-03-20] MEDS: DOCUSATE SODIUM 100 MG CAP PO SCH (09:30)
[2021-03-20] MEDS: ERTAPENEM SODIUM 1,000 MG in SODIUM CHLORIDE 0.9% 50 ML IV SCH (09:31)
--- NOTE | 2021-03-20 15:27 | Hospitalist Progress Note ---
Date of Service March 20, 2021 Assessment & Plan (1) Acute massive pulmonary embolism: * Presumed provoked given recent surgery and mostly bedbound state as he has been lying in the [facility] for wound care * anticoagulation therapy with therapeutic heparin drip (titration per protocol) * I spoke to Skilled Nursing physician, they will use Coumadin, but since he is also on iv ertapenem, will begin Lovenox to Coumadin transition 03/18 * pending hypercoagulable panel including factor V Leiden, lupus anticoagulant, protein S, protein C, and antithrombin 3; however, I suspect this is likely provoked given his recent surgical * Venous Doppler confirms right leg DVT * Echo suggests RV dilation and elevated right heart pressures, recommended 3 mo follow up (2) Elevated troponin: * Suspects elevated due to demand ischemia * did not continue to trend upward * Echocardiogram results are without RWMA (3) Abnormal urinalysis: * >100k ESBL e coli, was on rocephin, changed to ertapenemdue to sensitivities patient will likely need to complete a course of intravenous antibiotics given his recent surgical intervention on his prostate complete 7 days of treatment (4) Wound of abdomen: * Patient with abnormal CT findings to suggest postoperative changes versus developing fistula * Would favor postoperative changes as patient has no complaints of abdominal pain, nausea or vomiting. * The wound is clean and dry. Clinically, it does not appear to be infected. * His white count was only slightly elevated at 11.4;normal procalcitonin * Consult wound nurse for wound VAC and recommendations * * CT abd/pelvis, IMPRESSION: 1. No evidence of bowel obstruction 2. Postsurgical changes of a partial left colonic obstruction with a sigmoid stump and left lower quadrant colostomy 3. Persistent infiltration of the fat within the left mid abdomen adjacent to multiple small bowel loops with a persistent tiny extraluminal gas bubble. The findings may be postsurgical. There is no evidence of a drainable abscess. Continued clinical and imaging follow-up are recommended. 4. Suspected right common femoral DVT 5. Suspected prior TURP procedure. Gas within the bladder. 6. Nonspecific 7 mm pleural-based left lower pulmonary opacity possibly atelectatic (5) Tachycardia: * Secondary to PE continues with improvement (6) Transaminitis: * continue to hold statin therapy * Liver looked normal on CT abd/pelvis, maybe from passive congestion from right heart strain of PE (7) Elevated lipase: * Patient has no evidence of abdominal pain and no CT evidence of pancreatitis. * IV fluids on board. continues with minor elevation (8) HLD (hyperlipidemia): * Chronic. Hold statin therapy as discussed above. May need a drug holiday (9) Diverticular disease: * S/P diverting colostomy (10) BPH (benign prostatic hyperplasia): * S/p recent TURP (11) Colostomy present: * Consult wound nurse for colostomy care (12) Anemia: pt did have some decline in hgb this is secondary to dilution, no signs of blood loss,nearly microcytic, will check iron and vitamin levels Admission and Anticipated Discharge Date Admission Date: March 14, 2021 Subjective pt is having only minor pain in abdomen pt seen and observed walking in the hallways no shortness of breath tolerating wound vacc without issue changed 03/19/21 Review of Systems Review of Systems: Mild distress and fatigue no headache, no visual changes no speech or swallowing issues resolution of chest pain, pressure or palpitations improved but mild shortness of breath, cough or wheezes no new abdominal pain, nausea or vomiting, ostomy output is usual for him, no leaking no dysuria, hematuria or frequency no focal joint pain or swelling, improving right calf pain no back pain, CVA tenderness or radicular pain no bruising, bleeding or rashes no focal signs of weakness or numbness or altered sensation no complaints of anxiety or depression.. Physical Exam Physical Exam: The patient appeared well nourished and normally developed. Vital signs as documented. Head exam is normocephalic atraumatic Neck is without JVD, thyromegaly, or carotid bruits. Lungs are clear to auscultation, no focal loss of breath sounds Cardiac exam, Rhythm is regular but tachycardic.. No murmurs, rubs or gallops. Abdominal exam reveals normal bowel sounds, soft non tender, no masses, no significant tenderness to lateral abdominal wound Extremities are nonedematous and both pedal pulses are present, right calf is tender to exam Neurologic exam is alert and oriented, no focal loss of strength or sensation Skin is with abdominal wound healing by secondary intent, wound vacc in place, Psychologically is without concerns for anxiety or depression Results & Data Results & Data ([facility]) Vital Signs (Past 12 Hours) Vital Signs Temp Pulse Resp BP Pulse Ox 03/20/21 08:02 98.2 F 95 H 18 114/79 95 PG Care Time/CCT Total # of Minutes Spent Total Time Spent with Patient: Total time spent is greater than 50% in coordination of care (as documented) at patient's floor/unit and/or counseling patient: Coding Level of Care Code 44249 Subseq Hosp Care Lvl 2 Diagnoses Acute massive pulmonary embolism I26.99 Elevated troponin R77.8 Abnormal urinalysis R82.90 Wound of abdomen S31.109A Tachycardia R00.0 Transaminitis R74.01 Elevated lipase R74.8 HLD (hyperlipidemia) E78.5 Hyperlipidemia type: unspecified Diverticular disease K57.90 BPH (benign prostatic hyperplasia) N40.0 Lower urinary tract symptom presence: unspecified whether lower urinary tract symptoms present Colostomy present Z93.3 Anemia D64.9 (1) HLD (hyperlipidemia) Hyperlipidemia type: unspecified Qualified Code(s): E78.5 - Hyperlipidemia, unspecified (2) BPH (benign prostatic hyperplasia) Lower urinary tract symptom presence: unspecified whether lower urinary tract symptoms present Qualified Code(s): N40.0 - Benign prostatic hyperplasia without lower urinary tract symptoms
[2021-03-20] MEDS: WARFARIN SOD 5 MG TAB PO SCH (15:34)
[2021-03-21 05:47] LABS: Hematocrit (blood only) 27.8 % (42-52); Hemoglobin 8.5 g/dL (14.0-18.0); Mean Corpuscular Hemoglobin 24.4 pg (25-34); Mean Corpuscular Hgb Conc 30.6 g/dL (32-36); Mean Corpuscular Volume 79.7 fL (80-100); Platelet Count 391 K/uL (130-400); RDW Standard Deviation 49.4 fL (36.4-46.3); Red Blood Count 3.49 M/uL (4.7-6.1)
[2021-03-21 05:58] LABS: INR 1.1 (0.9-1.1); Prothrombin Time 11.4 Seconds (9.0-12.0)
[2021-03-21 06:22] LABS: BUN Creatinine Ratio 16.7 (10-20); Calcium 8.9 mg/dl (8.5-10.1); Creatinine Clr Calc Pharmacy 116.6 ml/min; Est GFR (Non-African American) 100.1 ml/min
[2021-03-21] MEDS: ENOXAPARIN 100 MG/1ML SYR SQ SCH ×2 (06:27→18:33)
[2021-03-21] MEDS: MoRPHine SULFATE 4 MG/ML 1 ML CARP\\VIAL IV PRN ×3 (07:49→20:48)
--- NOTE | 2021-03-21 07:51 | Hospitalist Progress Note ---
Date of Service March 21, 2021 Assessment & Plan (1) Acute massive pulmonary embolism: * Presumed provoked given recent surgery and mostly bedbound state as he has been lying in the [facility] for wound care * anticoagulation therapy with therapeutic heparin drip (titration per protocol) initially, * I spoke to [facility] physician, they will use Coumadin, but since he is also on iv ertapenem, will begin Lovenox to Coumadin transition 03/18 * pending hypercoagulable panel including factor V Leiden, lupus anticoagulant, protein S, protein C, and antithrombin 3; however, I suspect this is likely provoked given his recent surgical * Venous Doppler confirms right leg DVT * Echo suggests RV dilation and elevated right heart pressures, recommended 3 mo follow up (2) Anemia: pt did have some decline in hgb this is secondary to dilution, no signs of blood loss,nearly microcytic, will check iron and vitamin levels slighlty more drop 03/21 mild dyspnea, will recheck in afternoon, follow (3) Elevated troponin: * Suspects elevated due to demand ischemia,myocardia stretch from massive PE and increased right heart pressures * did not continue to trend upward * Echocardiogram results are without RWMA (4) Abnormal urinalysis: * >100k ESBL e coli, was on rocephin, changed to ertapenemdue to sensitivities patient will likely need to complete a course of intravenous antibiotics given his recent surgical intervention on his prostate complete 7 days of treatment (5) Wound of abdomen: * Patient with abnormal CT findings to suggest postoperative changes versus developing fistula * Would favor postoperative changes as patient has no complaints of abdominal pain, nausea or vomiting. * The wound is clean and dry. Clinically, it does not appear to be infected. * His white count was only slightly elevated at 11.4;normal procalcitonin * Consult wound nurse for wound VAC and recommendations * * CT abd/pelvis, IMPRESSION: 1. No evidence of bowel obstruction 2. Postsurgical changes of a partial left colonic obstruction with a sigmoid stump and left lower quadrant colostomy 3. Persistent infiltration of the fat within the left mid abdomen adjacent to multiple small bowel loops with a persistent tiny extraluminal gas bubble. The findings may be postsurgical. There is no evidence of a drainable abscess. Continued clinical and imaging follow-up are recommended. 4. Suspected right common femoral DVT 5. Suspected prior TURP procedure. Gas within the bladder. 6. Nonspecific 7 mm pleural-based left lower pulmonary opacity possibly atelectatic (6) Tachycardia: * Secondary to PE continues with improvement (7) Transaminitis: * continue to hold statin therapy * Liver looked normal on CT abd/pelvis, maybe from passive congestion from right heart strain of PE (8) Elevated lipase: * Patient has no evidence of abdominal pain and no CT evidence of pancreatitis. * IV fluids on board. continues with minor elevation (9) HLD (hyperlipidemia): * Chronic. Hold statin therapy as discussed above. May need a drug holiday (10) Diverticular disease: * S/P diverting colostomy (11) BPH (benign prostatic hyperplasia): * S/p recent TURP (12) Colostomy present: * Consult wound nurse for colostomy care Admission and Anticipated Discharge Date Admission Date: March 14, 2021 Subjective pt is having only minor pain in abdomen pt seen and observed walking in the hallways no shortness of breath tolerating wound vacc without issue changed 03/19/21 needs to complete ertapenem last dose 03/22, will need 5 day lovenox/coumadin overlap, 5 days would be 03/23 but inr is not budging Review of Systems Review of Systems: Mild distress and fatigue no headache, no visual changes no speech or swallowing issues resolution of chest pain, pressure or palpitations improved but mild shortness of breath, cough or wheezes no new abdominal pain, nausea or vomiting, ostomy output is usual for him, no leaking no dysuria, hematuria or frequency no focal joint pain or swelling, improving right calf pain no back pain, CVA tenderness or radicular pain no bruising, bleeding or rashes no focal signs of weakness or numbness or altered sensation no complaints of anxiety or depression.. Physical Exam Physical Exam: The patient appeared well nourished and normally developed. Vital signs as documented. Head exam is normocephalic atraumatic Neck is without JVD, thyromegaly, or carotid bruits. Lungs are clear to auscultation, no focal loss of breath sounds Cardiac exam, Rhythm is regular but tachycardic.. No murmurs, rubs or gallops. Abdominal exam reveals normal bowel sounds, soft non tender, no masses, no significant tenderness to lateral abdominal wound Extremities are nonedematous and both pedal pulses are present, right calf is tender to exam Neurologic exam is alert and oriented, no focal loss of strength or sensation Skin is with abdominal wound healing by secondary intent, wound vacc in place, Psychologically is without concerns for anxiety or depression Results & Data Results & Data ([facility]) Vital Signs (Past 12 Hours) Vital Signs Temp Pulse Resp BP BP Pulse Ox 03/21/21 06:26 88 16 117/74 97 03/20/21 22:45 98.1 F 101 H 16 131/83 95 PG Care Time/CCT Total # of Minutes Spent Total Time Spent with Patient: Total time spent is greater than 50% in coordinat ion of care (as documented) at patient's floor/unit and/or counseling patient: Coding Level of Care Code 26997 Subseq Hosp Care Lvl 3 Diagnoses Acute massive pulmonary embolism I26.99 Anemia D64.9 Elevated troponin R77.8 Abnormal urinalysis R82.90 Wound of abdomen S31.109A Tachycardia R00.0 Transaminitis R74.01 Elevated lipase R74.8 HLD (hyperlipidemia) E78.5 Hyperlipidemia type: unspecified Diverticular disease K57.90 BPH (benign prostatic hyperplasia) N40.0 Lower urinary tract symptom presence: unspecified whether lower urinary tract symptoms present Colostomy present Z93.3 (1) BPH (benign prostatic hyperplasia) Lower urinary tract symptom presence: unspecified whether lower urinary tract symptoms present Qualified Code(s): N40.0 - Benign prostatic hyperplasia without lower urinary tract symptoms (2) HLD (hyperlipidemia) Hyperlipidemia type: unspecified Qualified Code(s): E78.5 - Hyperlipidemia, unspecified
[2021-03-21] MEDS: DOCUSATE SODIUM 100 MG CAP PO SCH (09:06)
[2021-03-21] MEDS: ERTAPENEM SODIUM 1,000 MG in SODIUM CHLORIDE 0.9% 50 ML IV SCH (09:23)
[2021-03-21] MEDS: WARFARIN SOD 5 MG TAB PO SCH (15:58)
[2021-03-21] MEDS ORDERED: WARFARIN SOD 2.5 MG TAB PO ONE (16:00)
[2021-03-22] MEDS: ENOXAPARIN 100 MG/1ML SYR SQ SCH ×2 (06:01→18:40)
[2021-03-22] MEDS: MoRPHine SULFATE 4 MG/ML 1 ML CARP\\VIAL IV PRN ×4 (06:22→20:13)
[2021-03-22 07:23] LABS: Hematocrit (blood only) 30.6 % (42-52); Hemoglobin 9.4 g/dL (14.0-18.0); Mean Corpuscular Hemoglobin 24.4 pg (25-34); Mean Corpuscular Hgb Conc 30.7 g/dL (32-36); Mean Corpuscular Volume 79.5 fL (80-100); Mean Platelet Volume 9.2 fL (7.4-10.4); Platelet Count 418 K/uL (130-400); RDW Coefficient of Variation 16.9 % (11.5-14.5); RDW Standard Deviation 48.4 fL (36.4-46.3); Red Blood Count 3.85 M/uL (4.7-6.1); White Blood Count 4.97 K/uL (4.8-10.8)
[2021-03-22 08:02] LABS: Creatinine Clr Calc Pharmacy 116.6 ml/min; Est GFR (Non-African American) 100.1 ml/min
[2021-03-22 08:21] LABS: Folate (Folic Acid) 14.3 ng/ml (>5.38)
[2021-03-22] MEDS: DOCUSATE SODIUM 100 MG CAP PO SCH (09:19)
[2021-03-22] MEDS: ERTAPENEM SODIUM 1,000 MG in SODIUM CHLORIDE 0.9% 50 ML IV SCH (09:19)
[2021-03-22] MEDS: WARFARIN SOD 10 MG TAB PO SCH (16:35)
--- NOTE | 2021-03-22 16:48 | Hospitalist Progress Note ---
Date of Service March 22, 2021 Assessment & Plan (1) Acute massive pulmonary embolism: * Presumed provoked given recent surgery and mostly bedbound state as he has been lying in the [facility] for wound care * anticoagulation therapy with therapeutic heparin drip (titration per protocol) initially, * Patient now on bridge therapy (Lovenox/Coumadin- 10mg tonight) with continued subtherapeutic INR. Spoke directly to the [facility] who is able to continue bridge therapy until patient therapeutic; however, unable to obtain Lovenox until tomorrow. Plan for likely discharge tomorrow. * Patient did have a hypercoagulable panel including factor V Leiden, lupus anticoagulant, protein S, protein C, and antithrombin 3 which have all come back within normal limits. Suspect PE provoked. May consider discontinuation of anticoagulation therapy in 6months * Venous Doppler confirms right leg DVT * Echo suggests RV dilation and elevated right heart pressures, recommended 3 mo follow up (2) DVT (deep venous thrombosis): * Right femoral vein and superficial right profunda femoris * On anticoagulation therapy (3) Elevated troponin: * Suspects elevated due to demand ischemia,myocardia stretch from massive PE and increased right heart pressures * did not continue to trend upward * Echocardiogram results are without RWMA (4) Anemia: pt did have some decline in hgb which was likely dilutional. H&H has since remained stable. (5) Wound of abdomen: * Patient with abnormal CT findings to suggest postoperative changes v ersus developing fistula * Would favor postoperative changes as patient has no complaints of abdominal pain, nausea or vomiting. * The wound is clean and dry. Clinically, it does not appear to be infected. * His white count was only slightly elevated at 11.4;normal procalcitonin * Wound nurse on board and wound to surfacerecommending discontinuation of wound VAC for now. Continue with wound therapy upon discharge. * CT abd/pelvis, IMPRESSION: 1. No evidence of bowel obstruction 2. Postsurgical changes of a partial left colonic obstruction with a sigmoid stump and left lower quadrant colostomy 3. Persistent infiltration of the fat within the left mid abdomen adjacent to multiple small bowel loops with a persistent tiny extraluminal gas bubble. The findings may be postsurgical. There is no evidence of a drainable abscess. Continued clinical and imaging follow-up are recommended. 4. Suspected right common femoral DVT 5. Suspected prior TURP procedure. Gas within the bladder. 6. Nonspecific 7 mm pleural-based left lower pulmonary opacity possibly atelectatic (6) Abnormal urinalysis: * Patient has completed a full course of IV Invanz based on culture data for E. coli with multidrug resistance (7) Transaminitis: * Has since normalized. May have been from passive venous congestion from right-sided heart strain/PE along with chronic statin therapy. Statin remains on holdfor drug holiday. Continue to trend labs. (8) Tachycardia: * Secondary to PE continues with improvement (9) Elevated lipase: * Patient has no evidence of abdominal pain and no CT evidence of pancreatitis. (10) HLD (hyperlipidemia): * Chronic. Hold statin therapy as discussed above. May need a drug holiday (11) Diverticular disease: * S/P diverting colostomy (12) BPH (benign prostatic hyperplasia): * S/p recent TURP (13) Colostomy present: * wound nurse on board. appreciate recommendation Reached out to [facility]. Physician unavailable but did speak to charge nurse who reports that Lovenox is unavailable until tomorrow. Pending patient remains medically and hemodynamically stable and continues showing favorable response, plan is for discharge back to the [facility] tomorrow with continued bridge therapy until INR is therapeutic. Admission and Anticipated Discharge Date Admission Date: March 14, 2021 Subjective Patient seen on daily rounds today. He is a 60 y/o with a PMHx of BPH, HLD, and diverticular disease. Was hospitalized 03/14/2021 with massive PE. Was mildly tachycardic (120s) but otherwise hemodynamically stable. He was not hypoxic or requiring supplemental oxygen but did have marked conversational dyspnea on exam. PE thought to be provoked as he had recently had 2 surgeries (TURP, diverting colostomy due to perforated diverticulitis) in addition has been mostly bedbound as he is an inmate and had some wound dehiscence requiring wound VAC and unfortunately has been laying in the [facility] since his surgery. There was concern given the size and nature of the pulmonary embolus that he would require TPA. Dr. Munson had reached out to interventional radiology who did not recommend catheter assisted thrombolysis as his recent surgery was a relative contraindication. Patient was subsequently hospitalized and placed on a heparin drip. Troponin was initially elevated at 0.32 and did peak at 0.98 without evidence of chest pain or EKG changes. This was thought to be secondary to supply demand ischemia. Echocardiogram was obtained that did show some mild right-sided heart strain pattern. Venous Doppler showed nearly occlusive DVT in the right femoral vein with superficial venous thrombus in the right profunda femoris. Patient subsequently found to have a urinary tract infection (E. colisensitive to Invanz). Patient has since completed a full course of IV Invanz. Currently denies dysuria, hematuria, frequency. Has not had any reported fevers or chills. Heparin has since been transitioned to Lovenox with bridge to Coumadin therapy. INR remains subtherapeutic at 1.1. Did reach out to the [facility] who is able to provide bridge therapy; however, has not been able to get access to Lovenox until tomorrow given holiday weekend. Last, there was some concern for developing fistula in the abdomen on initial CT scan (that was done without contrast). Follow-up CT of the abdomen and pelvis with contrast shows postsurgical gas/postsurgical changes without evidence of fistula. His procalcitonin level was normal. He has been seeing wound care. Did have a wound VAC which has since been stopped as wound up to surface. Patient currently denies fevers, chills, chest pain, shortness of breath, TROTTER, abdominal pain, nausea, vomiting, GI/ symptomatology. Nursing voices no complaints or concerns. Review of Systems Review of Systems: Denies fevers, chills, headache, nasal congestion, sore throat, cough, chest pain, pleurisy, shortness of breath, abdominal pain, nausea, vomiting, GI/ symptomatology. Physical Exam Physical Exam: General: Resting comfortably in his hospital bed. A&O X3 NAD. Cardiac: RRR without M/G/R Lungs: Substantially improved compared to the day of admission. Patient without conversational dyspnea. Speaking full sentences on ambient air. CTA without W /R/R Abdomen: Normoactive X4. Soft and nontender in all quadrants. Functioning colostomy bag in the left midabdomen. Wound dressing dry and intact Extremities: No peripheral clubbing cyanosis or edema Results & Data Results & Data ([facility]) Vital Signs (Past 12 Hours) Vital Signs Temp Pulse Resp BP Pulse Ox 03/22/21 07:39 37.0 C 85 18 114/77 95 Laboratory Results 03/22/21 07:08 03/22/21 07:08 INR done 03/21/2021: 1.1 PG Care Time/CCT Total # of Minutes Spent Total Time Spent with Patient: Total time spent is greater than 50% in coordination of care (as documented) at patient's floor/unit and/or counseling patient: Coding [place] [address] Subseq Hosp Care Lvl 3 Patient Type Established History Detailed Exam Detailed Medical Decision Making Moderate Complexity Diagnoses Acute massive pulmonary embolism I26.99 DVT (deep venous thrombosis) I82.409 Elevated troponin R77.8 Anemia D64.9 Wound of abdomen S31.109A Abnormal urinalysis R82.90 Transaminitis R74.01 Tachycardia R00.0 Elevated lipase R74.8 HLD (hyperlipidemia) E78.5 Hyperlipidemia type: unspecified Diverticular disease K57.90 BPH (benign prostatic hyperplasia) N40.0 Lower urinary tract symptom presence: unspecified whether lower urinary tract symptoms present Colostomy present Z93.3 (1) HLD (hyperlipidemia) Hyperlipidemia type: unspecified Qualified Code(s): E78.5 - Hyperlipidemia, unspecified (2) BPH (benign prostatic hyperplasia) Lower urinary tract symptom presence: unspecified whether lower urinary tract symptoms present Qualified Code(s): N40.0 - Benign prostatic hyperplasia without lower urinary tract symptoms
[2021-03-23] MEDS: ENOXAPARIN 100 MG/1ML SYR SQ SCH ×2 (06:02→18:01)
[2021-03-23] MEDS: MoRPHine SULFATE 4 MG/ML 1 ML CARP\\VIAL IV PRN (06:06)
[2021-03-23 06:33] LABS: Basophils # (auto) 0.01 K/uL (0-0.2); Basophils % (auto) 0.2 %; Eosinophils # (auto) 0.14 K/uL (0-0.5); Hematocrit (blood only) 30.8 % (42-52); Hemoglobin 9.4 g/dL (14.0-18.0); Immature Granulocytes # (auto) 0.01 K/uL (0.00-0.02); Immature Granulocytes % (auto) 0.2 %; Lymphocytes # (auto) 1.06 K/uL (1.2-3.4); Mean Corpuscular Hemoglobin 24.4 pg (25-34); Mean Corpuscular Hgb Conc 30.5 g/dL (32-36); Mean Corpuscular Volume 79.8 fL (80-100); Mean Platelet Volume 9.1 fL (7.4-10.4); Monocytes # (auto) 0.31 K/uL (0.11-0.59); Monocytes % (auto) 6.7 %; Neutrophils # (auto) 3.07 K/uL (1.4-6.5); Neutrophils % (auto) 66.9 %; Platelet Count 432 K/uL (130-400); RDW Coefficient of Variation 17.1 % (11.5-14.5); RDW Standard Deviation 49.2 fL (36.4-46.3); Red Blood Count 3.86 M/uL (4.7-6.1)
[2021-03-23 06:47] LABS: INR 1.4 (0.9-1.1); Prothrombin Time 13.5 Seconds (9.0-12.0)
[2021-03-23 07:12] LABS: Albumin Level 2.5 gm/dl (3.4-5.0); Calcium 9.2 mg/dl (8.5-10.1); Creatinine Clr Calc Pharmacy 115.1 ml/min; Est GFR (African American) 115.4 ml/min; Est GFR (Non-African American) 99.6 ml/min; Magnesium 1.9 mg/dl (1.8-2.4); Potassium 3.8 mmol/L (3.5-5.1)
[2021-03-23 07:15] LABS: Albumin Globulin Ratio 0.5 (0.9-2); Bilirubin,Total 0.3 mg/dl (0.2-1); Globulin 5.3 gm/dl (2.5-4.0); Total Protein 7.8 gm/dl (6.4-8.2)
[2021-03-23] MEDS: DOCUSATE SODIUM 100 MG CAP PO SCH (09:03)
[2021-03-23] MEDS ORDERED: ACETAMINOPHEN 500 MG TAB PO STA (14:00)
--- NOTE | 2021-03-23 16:10 | Discharge Summary ---
Date of Service March 23, 2021 Admission HPI Per Admitting Provider Mr. Rene is a 60 y/o WM with a PMHx of BPH, diverticular dz and HLD. He is currently incarcerated at [facility]. He presented to the ED with c/o AOB that started today. Pt is somewhat of a vague historian. He has had somewhat of a complicated course over the past 5 weeks. He was previously incarcerated at [facility]. He underwent a TURP procedure at [facility] that was uneventful. At that time, he was dealing with mild abd pain and has known diverticulitis. Following the TURP procedure, he ended up back at [facility] (given limited details) and claims that he had a perforated tic and ended up with a diverting colostomy. Uncertain of the surgeon. Subsequently, developed a nonhealing wound on the right mid abd requiring a wound wac. Was unable to receive wound care at [facility] and was relocated to [facility] here in [place]. Has been mostly bedbound. Was able to go to the bathroom and perform limited activity without issues. Today, he attempted to walk and developed an abrupt onset of TROTTER and diaphoresis. Symptoms did not improve with rest. He then developed CP (substernal) with radiation into his jaw and left subscapular region. Reports a cough but no hemoptysis. Pulse ox was reported to be 81% and he was started on supplemental o2 and transported to the Ed for further eval and care. W/U in the ED showed sinus tachycardia of 120-130BPM with a normal BP (116/78). Pulse ox was 93% on RA. WBC was 11.4. His metabolic panel was WNL. Troponin was elevated 0.31. Lipase was slightly elevated at 610. Lactic acid was WNL at 1.0. CXR howed no acute pathology. CTA showed evidence of Massive Saddle PE with entension faustina the segmental and subsegmental braches and thrombus noted in the right and left main pulmonary arteries. Coincidentally there were some abnormal findings involving the abd/pelvis which could represent postoperative changes vs developing fistula. Patient does have a known wound and typically has a wound wav. Wound vac currently not in place d/t colostomy somehow leaking into wound vac during dressing change (?). To be replaced tomorrow. Denies F/C, abd pain, N/V. Admission Exam Per Admitting Provider Constitutional: Awake and alert. Resting comfortably on gurney. Does have marked conversational dyspnea gasping after every 3rd-4th word ENMT: Head is atraumatic, normocephalic. Buccal mucosa is moist and pink Neck: Supple and nontender Respiratory: As stated above, breathing comfortably while at rest. No accessory muscle use. On ambient air. Breathing is nonlabored. Does have marked conversational dyspnea gasping after every 3rd-4th word. Diminished breath sounds throughout with end inspiratory and end expiratory wheezes heard on the left anterior chest Cardiovascular: Distant heart sounds with mild sinus tachycardia of 118 Gastrointestinal (Abdomen): Abdomen mildly distended. Does have a functional colostomy with stool in the left midabdomen. Stoma is present and pink. The right midabdomen has a large wound that is approximately 5 cm in width and 10 cm 0 more in length. The edges are not as deep as the center of the wound. The wound is pink without active drainage. No obvious tunneling that I can see. Bowel sounds are normoactive x4. Abdomen is soft and nontender in all quadrants Musculoskeletal: No obvious gross deformities noted throughout. Patient is shackled to the bed. He does not have any erythema or edema of the bilateral lower extremities. He does have right calf pain but a negative Homans' sign bilaterally. No palpable cord appreciated. Skin: See abdomen for discussion of wound Neurologic: Patient is awake and alert. He is oriented to person, place, time and situation. Principal Diagnosis Admitting diagnosis: 1. Acute massive saddle pulmonary embolism 2. Elevated troponinpresumed type II due to supply demand ischemia 3. UTI 4. Wound of abdomen 5. Tachycardiasecondary to PE 6. Transaminitisresolved 7. Elevated lipase without evidence of pancreatitis Chronic medical conditions: 1. HLD 2. Diverticular disease 3. BPH 4. Colostomy Discharge Exam General: Resting comfortably in his hospital bed. A&O X3 NAD. Cardiac: RRR without M/G/R Lungs: CTA without W/R/R Abdomen: Dressing in place to abdominal wound. It is dry and intact. Colostomy noted to left midabdomen. Normoactive X4. Soft and nontender in all quadrants. Extremities: No peripheral clubbing cyanosis or edema Discharge Data Allergies Allergy/AdvReac Type Severity Reaction Status Date / Time No Known Allergies Allergy Unverified 03/14/21 16:05 Consultations 03/14/21 17:14 Morgue Technician on board while patient in the ICU for comanagement Ordered Studies 03/14/21 12:28 CT abd pelvis IV con only Stat CT angio chest PE protocol Stat CT of the chest, CT of the abdomen pelvis (03/14/2021): Thyroid: Imaged portions of the thyroid gland are normal in size and attenuation. Thoracic aorta: The thoracic aorta is normal in caliber and demonstrates standard 3-vessel arch anatomy. No dissection is seen. Pulmonary vasculature: The pulmonary trunk is mildly dilated measuring 3.3 cm in transverse diameter. This suggests pulmonary artery hypertension. There is saddle pulmonary embolus with extensive bilateral pulmonary emboli. Thrombus is seen within the right and left main pulmonary arteries. This extends into all lobar branches, and reaches segmental and subsegmental branches in all lobes. Heart: The heart is mildly enlarged and without pericardial effusion. The coronary arteries are densely calcified. Lungs and pleural spaces: Moderate emphysematous change is noted. There is no a irspace consolidation typical for pneumonia or pleural effusion. The trachea and central airways are clear. Scarring/atelectasis is present at both lung bases. A 3 mm pleural-based nodule in the left lower lobe is seen on image #175. Mediastinum: There is no mediastinal lymphadenopathy. Meena: Clear. Axillae: There is no axillary lymphadenopathy. Bony thorax: No lytic or blastic lesions are identified. ABDOMEN AND PELVIS: Liver: The contrast-enhanced liver is normal in size, contour, and attenuation. There is no intrahepatic or ductal dilatation. The hepatic veins and portal veins are patent. Scattered subcentimeter hepatic hypodensities may represent cysts but are too small for definitive characterization. Gallbladder: Unremarkable. Spleen: Normal in size and attenuation. Pancreas: Unremarkable. Adrenal glands: Unremarkable. Kidneys: The contrast enhanced kidneys are normal in size and without hydronephrosis. The kidneys enhance symmetrically. A 10 mm cyst is noted in the interpolar left kidney. Abdominal vasculature: There is mild to moderate atherosclerotic calcification as well as ectasia of the abdominal aorta. There is mild aneurysmal dilatation of the common iliac arteries which measure up to 2.0 cm in diameter. Extensive deep venous thrombosis is seen within the right common femoral vein. The iliac veins and IVC appear clear. Stomach and bowel: There is a small hiatal hernia. There is postoperative change from left-sided colon resection with left lower quadrant colostomy. A rectosigmoid stump is noted in the pelvis. No bowel obstruction is seen. There a re scattered colonic diverticula without CT evidence of acute diverticulitis. The appendix is well-visualized and normal. There are mildly thick-walled and hyperemic loops of small bowel in the lateral left mid abdomen at the operative site, and small bowel loops appear tethered in this region on image #225. There are tiny foci of extraluminal gas identified adjacent to a small bowel loop seen on axial image #252. There is a thin and peripherally enhancing fluid containing tract in this region seen on image #280 which extends inferiorly from the tethered loops. This may represent a tract from a previous drain. A small fistula is not excluded. There is gas within this tract on image #206. Peritoneum: There is no intraperitoneal free air below the diaphragm. No abdominal ascites is seen. There is diastases of the ventral abdominal wall. Lymphadenopathy: None. Pelvic viscera: The bladder wall is thickened and trabeculated indicating chronic outlet obstruction. There are foci of intraluminal gas. The prostate gland is enlarged and heterogeneous noting median lobe hypertrophy. Question previous prostate surgery. Skeletal structures: No lytic or blastic lesions are seen. IMPRESSION: 1. Saddle embolus with extensive bilateral pulmonary emboli as above. 2. Cardiomegaly and emphysema. 3. There is no airspace consolidation typical for pneumonia or pleural effusion. 4. There is postoperative change from left-sided colon resection with left lower quadrant colostomy and rectosigmoid stump formation. No bowel obstruction is seen. 5. There are mildly thick-walled and hyperemic loops of small bowel in the left lateral abdomen at the resection site which appeared somewhat tethered. Additionally, there are tiny foci of extraluminal gas adjacent to one of the small bowel loops. This may represent postoperative change and adhesions. A focal enteritis and contained perforation is not excluded. Clinical correlation will be essential. 6. Additionally, there is a thin and peripherally enhancing fluid-filled tract extending inferiorly from the tethered small bowel loops. This may represent a site of previous surgical drain, or possibly a developing fistula. 7. No organized/triple fluid collection is identified. 8. No intraperitoneal free air seen below the diaphragm. 9. There is nonspecific gas within the bladder lumen. Correlate with clinical findings and urinalysis. 10. Postoperative change is suggested in the prostate and there is evidence of chronic bladder outlet obstruction. 11. Deep venous thrombosis is present in the right common femoral vein. 12. Diastases of the ventral abdominal wall. 13. A 3 mm pleural-based nodule is seen in the left lower lobe. This can be followed if clinically warranted. See below. 14. Additional findings as above. 03/14/21 17:14 US venous doppler LE BI Routine IMPRESSION: 1. There is nearly occlusive deep venous thrombosis identified in the right common femoral vein. 2. Superficial venous thrombus is present within the right profunda femoris vein. 3. There is no sonographic evidence of deep venous thrombosis in the left lower extremity. 03/16/21 14:28 CT abd pelvis oral and IV con Routine IMPRESSION: 1. No evidence of bowel obstruction 2. Postsurgical changes of a partial left colonic obstruction with a sigmoid stump and left lower quadrant colostomy 3. Persistent infiltration of the fat within the left mid abdomen adjacent to multiple small bowel loops with a persistent tiny extraluminal gas bubble. The findings may be postsurgical. There is no evidence of a drainable abscess. Continued clinical and imaging follow-up are recommended. 4. Suspected right common femoral DVT 5. Suspected prior TURP procedure. Gas within the bladder. 6. Nonspecific 7 mm pleural-based left lower pulmonary opacity possibly atelectatic Echocardiogramtransthoracic: 1. Normal LV size. Mild concentric LVH 2. Hyperdynamic LV. LVEF greater than 70%. No regional wall motion abnormalities or outflow tract obstruction 3. Moderately dilated RV with mild RV dysfunction 4. No significant valvular pathology 5. Mild pulmonary hypertension 6. Mildly dilated aortic root Hospital Course (1) Acute massive pulmonary embolism: * Presumed provoked given recent surgery and mostly bedbound state as he has been lying in the [facility] for wound care * anticoagulation therapy initially with therapeutic heparin drip (titration per protocol). Was then transitioned to Lovenox/Coumadin bridge * Initially admitted to the ICU. He was initially tachycardic without hypotension. No oxygen requirements upfront. Subsequently transition to a regular bed. * Prior to acceptance to our facility, attending did reach out to interventional radiology from [facility] who reported that given patient's prior/recent surgical interventioncatheter guided TPA was not recommended for this patient. * Patient did have a hypercoagulable panel including factor V Leiden, lupus anticoagulant, protein S, protein C, and antithrombin 3 which have all come back within normal limits. Suspect PE provoked. May consider discontinuation of anticoagulation therapy in 6months * Venous Doppler confirms right leg DVT * Echo suggests RV dilation and elevated right heart pressures, recommended 3 mo follow up (2) DVT (deep venous thrombosis): * Right femoral vein and superficial right profunda femoris * On anticoagulation therapy (3) Elevated troponin: * Suspects elevated due to demand ischemia,myocardia stretch from massive PE and increased right heart pressures * did not continue to trend upward * Echocardiogram results are without RWMA * Recommend referral to cardiology as an outpatient (4) Anemia: * pt did have some decline in hgb which was likely dilutional. H&H has since remained stable. * Iron level obtained and low at 11. I have since started iron supplementation (5) Wound of abdomen: * Patient with abnormal CT findings to suggest postoperative changes versus developing fistula * Would favor postoperative changes as patient has no complaints of abdominal pain, nausea or vomiting. * The wound is clean and dry. Clinically, it does not appear to be infected. * His white count was only slightly elevated at 11.4;normal procalcitonin * Wound nurse was on board and wound to surfacerecommending discontinuation of wound VAC for now. Continue with wound therapy upon discharge. * Should follow up with general surgeon * CT abd/pelvis, IMPRESSION: 1. No evidence of bowel obstruction 2. Postsurgical changes of a partial left colonic obstruction with a sigmoid stump and left lower quadrant colostomy 3. Persistent infiltration of the fat within the left mid abdomen adjacent to multiple small bowel loops with a persistent tiny extraluminal gas bubble. The findings may be postsurgical. There is no evidence of a drainable abscess. Continued clinical and imaging follow-up are recommended. 4. Suspected right common femoral DVT 5. Suspected prior TURP procedure. Gas within the bladder. 6. Nonspecific 7 mm pleural-based left lower pulmonary opacity possibly atelectatic (6) Abnormal urinalysis: * Patient has completed a full course of IV Invanz based on culture data for E. coli with multidrug resistance (7) Transaminitis: * Has since normalized. May have been from passive venous congestion from right-sided heart strain/PE along with chronic statin therapy. Statin remains on holdfor drug holiday. Continue to trend labs. (8) Tachycardia: * Secondary to PE continues with improvement (9) Elevated lipase: * Patient has no evidence of abdominal pain and no CT evidence of pancreatitis. (10) HLD (hyperlipidemia): * Chronic. Hold statin therapy as discussed above. May need a drug holiday (11) Diverticular disease: * S/P diverting colostomy (12) BPH (benign prostatic hyperplasia): * S/p recent TURP (13) Colostomy present: * wound nurse on board. appreciate recommendation Reached out to [facility] who has confirmed that they are able to receive patient today. They do have access to his Lovenox and this can be provided tonight. Total Time Total Time Spent Total Time Spent (In Minutes): 60 min including time spent with patient and calling [facility] Total Time Includes: Examination of the Patient, Discharge Planning, Medication Reconciliation, Communication With Other Providers and Other Discharge Plan Discharge Items [facility] Reason For Visit: MASSIVE SADDLE PE Discharge Diagnosis: 1. Massive Saddle Pulmonary Emolus/ Right lower Extremity DVT 2. Elevated troponin- NSTEMI Type II 3. Multidrug resistant UTI (ESBL E.coli) 4. Anemia- stable 5. Transaminitis- resolved 6. Abdominal Wound- chronic Activity: Resume your previous activity Non-emergency contact: Primary Care Provider Call non-emergency contact if: you have any medication questions and your symptoms worsen Follow-up/Referrals: Josephine BALL [Primary Care Provider] - Diet: Heart Healthy and Other - See Diet Comment Diet Comment: be sure diet is CONSISTENT with Vit. K containing foods. Addtl Attending Provider Instructions: Patient was hospitalized with a Massive Saddle Pulmonary Embolus- provoked from recent surgeries and mostly bedbound state. He is to be on bridge lovenox/Coumadin. -I would advise Coumadin 10mg HS in combination with Lovenox 90mg SQ q12h (next dose due tonight) until INR therapeutic (2.0-3.0) -once INR therapeutic, can D/C lovenox and continue Coumadin -Patient was given Coumadin 5mg HS and despite multiple doses, his INR remained subtherapeutic (1.1). On the night on 03/22/21, he was given 10mg with a follow up INR of 1.4. Would advise 10mg with daily INR and further adjustments as warranted. -This was a provoked PE/DVT and his hypercoagulable panel was negative. Would recommend updating all age appropriate cancer screening (colonoscopy) and if ruled out, can consider discontinuation of his anticoagulation therapy (at discretion of House Physician) Patient had a positive troponin without EKG changes. This did NOT uptrend and was thought to be related to supply/demand ischemia. Recommend referral for patient to see cardiology as some point in the near future. An Echocardiogram was performed that showed mild right sided heart strain. Would advise a repeat Echocardiogram in 3 months to reassess for Right sided heart strain pattern LFT's mildly elevated upon admission. Could be related to passive venous congestion from massive PE; however, patient also on statin. Statin was held. LFT's returned to normal. Would recommend a "drug holiday" and hold statin for 6-12 weeks. Can repeat labs and resume statin at discretion of House Physician. Alight drop in H/H during this hospitalization (10.8 to 8.5 and back up to 9.4 on the day of D/C) - thought to be dilutional from IV fluids given up front. Patient did NOT require a blood transfusion. Iron level noted to be low-- started on iron supplementation. Recommend continuation of this x 3 months and follow up labs to trend. can use Tylenol (pending LFT's remain WNL) alternating with ibuprofen as needed for pain (at the discretion of the house Physician) Patient had wound care on board while in house. Wound Vac stopped as "wound up to surface". Resume Wound care. Patient should follow up with House Physician within 24-48 hours. Patient should follow up with General Surgery (regarding his open wound s/p colectomy with colostomy) Patient should FU with urology s/p TURP. Was treated with IV Invanz for ESBL E.Coli UTI (completed full course of treatment) Pending Studies at Discharge: No Stand-Alone Forms: My [facility] Skilled Items Patient informed of condition?: Yes Discharge Level of Care: Other Communicable Disease: No Discharge Prognosis: Stable Lines: None Urinary Catheter: No Medications and DC Order Prescriptions: New warfarin 10 mg Tablet 10 mg PO DAILY@1600 Qty: 30 RF: 0 enoxaparin 100 mg/mL Syringe 90 mg subcut Q12H Qty: 10 RF: 0 ferrous sulfate 325 mg (65 mg iron) tablet,delayed release (DR/EC) 325 mg PO BID Qty: 60 RF: 0 Continued simethicone 180 mg Capsule 180 mg PO BID RF: 0 docusate sodium 50 mg Capsule 50 mg PO DAILY RF: 0 docusate sodium [Colace] 100 mg Capsule 200 mg PO DAILY RF: 0 bisacodyl 5 mg Tablet,Delayed Release (Dr/Ec) 5 mg PO DAILY RF: 0 lactulose 10 gram/15 mL Solution 10 g PO DAILY PRN (Reason: Constipation) RF: 0 Discontinued rosuvastatin [Crestor] 20 mg Tablet 20 mg PO QDD RF: 0 Discharge Orders: Discharge Order (Routine); Ordered 03/23/21 Ordered By: Olimpia More/Other Patient Handouts: What to Know When TakingWarfarin, DVT Dc, Embolism Pulmonary Dc, Colostomy: Managing Your Nutrition Admission Data Admit Date/Time: 03/14/21 16:35 Attending Provider: Michael Du Admit Provider: Florian Munson Primary Care Provider: Josephine BALL Other Providers: Florian Munson ; Jony Kilpatrick Other Interventions: Discharge Summary Assessment (RN) Last Done: 03/23/21 13:08 Supervising Physician Co-Signing Physician Notes Patient seen and examined on the day of discharge. I agree with the discharge summary by Olimpia RIOS. I have reviewed the chart including labs, imaging and plans for discharge. patient doing well, breathing comfortably, no chest pain, no fever, vitals stable eating well wound vac removed from abdominal incision/wound, ostomy functioning well - Massive pulmonary embolism: at this point he has been transitioned to Lovenox injection and coumadin INR is very slow to rise to therapeutic levels, still 1.1 despite several days of Coumadin 5mg will increase to 10mg SCI can monitor INR and stop Lovenox once appropriate would need 6-12 months of anticoagulation would consider this a provoked PE as he had recent surgery and prolonged hospitalization Coding Level of Care Code D/C Day Management >30 mins Diagnoses Acute massive pulmonary embolism I26.99 DVT (deep venous thrombosis) I82.409 Elevated troponin R77.8 Anemia D64.9 Wound of abdomen S31.109A Abnormal urinalysis R82.90 Transaminitis R74.01 Tachycardia R00.0 Elevated lipase R74.8 HLD (hyperlipidemia) E78.5 Hyperlipidemia type: unspecified Diverticular disease K57.90 BPH (benign prostatic hyperplasia) N40.0 Lower urinary tract symptom presence: unspecified whether lower urinary tract symptoms present Colostomy present Z93.3
[2021-03-23] MEDS: WARFARIN SOD 10 MG TAB PO SCH (16:46)
== END 2021-03-23 18:31 | DRG 280 ==
LOC: ED 12:15 → 1E 16:35 → SUATTDRO 16:35 → 1E 17:11 → 2E 03-16 10:29 → 3E 03-19 17:56

== ENCOUNTER 2021-04-16 21:22 | Inpatient (IN) ==
--- NOTE | 2021-04-16 22:34 | Emergency Department Note ---
History of Present Illness General Chief complaint: Swelling/Edema to Extremity Stated complaint: SWELLING AT POST SURGICAL SITE Time Seen by Provider: 04/16/21 22:31 Source: patient Mode of arrival: other ([facility]) Limitations: no limitations History of Present Illness Provider complaint: Abdominal pain and swelling to the right lower abdomen Onset (ago): hour(s) Location: abdomen Radiation: non-radiation Severity: moderate Maximum Pain Intensity: 7 Quality: + stabbing and + sharp Relieved By: + none Exacerbated By: + movement (Sitting upright seems to make the swelling worse compared to when he is lying flat.) Associated symptoms: + nausea/vomiting (Nausea but without vomiting); no chest pain, no fever/chills, no shortness of breath or no weakness Treatments prior to arrival: none Home Medications Medication Instructions Recorded Confirmed Type bisacodyl 5 mg tablet,delayed 5 mg PO DAILY 03/14/21 04/17/21 History release docusate sodium 100 mg capsule 100 mg PO BID 03/14/21 04/17/21 History (Colace) lactulose 10 gram/15 mL oral 20 g PO DAILY PRN 03/14/21 04/17/21 History solution A&D Ointment 1 applic TOPICAL BID 04/17/21 04/17/21 History ascorbic acid (vitamin C) 1,000 mg 1 g PO DAILY 04/17/21 04/17/21 History tablet (Vitamin C) cholecalciferol (vitamin D3) 25 25 mcg PO DAILY 04/17/21 04/17/21 History mcg (1,000 unit) tablet (Vitamin D3) ferrous sulfate 325 mg (65 mg 325 mg PO DAILY 04/17/21 04/17/21 History iron) tablet,delayed release sodium chloride 0.65 % nasal spray 2 spray INTRANASAL .QID&PRN 04/17/21 04/17/21 History aerosol ([place]) warfarin 2 mg tablet 2 mg PO DAILY 04/17/21 04/17/21 History warfarin 5 mg tablet 5 mg PO DAILY 04/17/21 04/17/21 History Allergies Allergy/AdvReac Type Severity Reaction Status Date / Time No Known Allergies Allergy Unverified 04/17/21 01:46 Past Med/Surg History Medical History BPH (benign prostatic hyperplasia) Diverticulitis of colon with perforation HLD (hyperlipidemia) No pertinent family history Surgical History History of bilateral inguinal herniorrhaphies Hx of colostomy S/P TURP Social History Smoking Status: Former smoker Second Hand Exposure: No; Do You Dip or Chew Tobacco: No; Tobacco Cessation Education Requested by Patient: No Hx Alcohol Use: No Hx Substance Use: No Preferred Language: Burmese Communication Ability: Effective Research Aide Required: No Beliefs That Will Affect Care: None Current Living Situation: Other Current Living Situation Comment: Detention system. Other Information That Helps Us Care for You: No Feels Safe at Home: Yes Safety Concerns: Feels Safe At This Time Assistive Devices: None Review of Systems See HPI for pertinent positives & negatives. and A total of 10 systems reviewed and were otherwise negative Physical Exam Vital Signs Vital Signs - 24 hr 04/16/21 21:30 04/16/21 23:25 04/17/21 01:00 Temperature 36.7 C Temperature Source Temporal Artery Scan Pulse Rate 72 Respiratory Rate 20 Respiratory Effort / Characteristics Non-Labored Spontaneous Respiratory Depth Normal Respiratory Pattern Regular Blood Pressure 118/82 Blood Pressure [Right Arm] 150/64 H 140/72 Blood Pressure Mean 94 Blood Pressure Mean [Right Arm] 92 94 Pulse Oximetry 98 Oxygen Delivery Method Room Air Sepsis Recent Fever Within 48 Hours No Sepsis New/Unexplained Change in Mental Status No Sepsis Action Taken by Nursing No Action Required GENERAL: NAD, non-toxic. EYE EXAM: Normal conjunctiva. PERRL, no anisocoria and EOM's grossly intact w/o pain. NECK: Supple, no nuchal rigidity, no adenopathy, non-tender. No signs of meningismus. LUNGS: Clear to auscultation. Normal chest wall mechanics. HEART: NSR, no MRG. ABDOMEN: Abdomen soft, right-sided abdominal discomfort with mild swelling without any obvious overlying skin changes, covered wound over the midline of the abdomen with a left-sided colostomy. Not peritonitic. BACK: No CVA TTP. SKIN: No rashes and no bruising. UPPER EXTREMITIES: Upper extremities are grossly normal. LOWER EXTREMITIES: Grossly normal, no edema. NEURO EXAM: A&O x3, cranial nerves II-XII grossly intact, normal speech, moves all 4 extremities on command w/o issue. Course Course Cardiac monitoring: An order was placed for continuous cardiac monitoring. The monitor shows a rate of 65 with sinus rhythm. Administered Medications Ascorbic Acid (Ascorbic Acid 500 Mg Tab) 1,000 mg PO DAILY [facility] Stop: 05/17/21 08:59 Last Admin: 04/17/21 07:47 Dose: 1,000 mg Documented by: [id number] Heparin Sodium/Dextrose (Heparin Sodium/Dextrose) 25,000 units in 500 mls @ 29 mls/hr IV .[id number] HOME; Protocol Stop: 05/17/21 14:14 Last Admin: 04/17/21 16:06 Dose: 1,450 units/hr, 29 mls/hr Documented by: [id number] Cosigned by: [id number] Sodium Chloride (Sodium Chloride 0.65% Na Soln 45 Ml ([place])) 2 sprays NA QID [facility] Stop: 05/17/21 03:41 Last Admin: 04/17/21 16:29 Dose: Not Given Documented by: [id number] Admin: 04/17/21 07:50 Dose: Not Given Documented by: [id number] Admin: 04/17/21 04:54 Dose: 2 sprays Documented by: [id number] Vitamin D (Cholecalciferol 1,000 Units 25 Mcg Tab) 1,000 units PO DAILY [facility] Stop: 05/17/21 08:59 Last Admin: 04/17/21 07:47 Dose: 1,000 units Documented by: [id number] Warfarin Sodium (Warfarin Sod 2 Mg Tab) 2 mg PO DAILY@1600 [facility] Stop: 05/17/21 15:59 Last Admin: 04/17/21 16:30 Dose: 2 mg Documented by: [id number] Warfarin Sodium (Warfarin Sod 5 Mg Tab) 5 mg PO DAILY@1600 HOME Stop: 05/17/21 15:59 Last Admin: 04/17/21 16:29 Dose: 5 mg Documented by: [id number] Discontinued Medications Sodium Chloride (Nss) 500 mls @ 999 mls/hr IV .Q31M STA Stop: 04/16/21 23:17 Last Infusion: 04/17/21 00:35 Dose: 0 mls/hr Documented by: [id number] Admin: 04/16/21 23:50 Dose: 999 mls/hr Documented by: [id number] Sodium Chloride (Nss) 500 mls @ 80 mls/hr IV .[id number] HOME Stop: 04/17/21 16:44 Last Admin: 04/17/21 16:29 Dose: 80 mls/hr Documented by: [id number] Infusion: 04/17/21 11:10 Dose: 80 mls/hr Documented by: [id number] Admin: 04/17/21 04:55 Dose: 80 mls/hr Documented by: [id number] Heparin Sodium (Porcine) 7,000 (units/ Syringe) 7 mls @ 10 mls/min IV NOW ONE Stop: 04/17/21 14:16 Last Admin: 04/17/21 16:06 Dose: 10 mls/min Documented by: [id number] Cosigned by: [id number] Ioversol (Optiray 320 100ml) 93 ml IV ONCE ONE Stop: 04/16/21 23:53 Last Admin: 04/16/21 23:52 Dose: 93 ml Documented by: [id number] Morphine Sulfate (Morphine Sulfate 4 Mg/Ml 1 Ml Carp\Vial) 4 mg IV NOW STA Stop: 04/16/21 22:48 Last Admin: 04/16/21 23:49 Dose: 4 mg Documented by: [id number] Ondansetron HCl (Ondansetron Inj 2 Mg/Ml 2 Ml Vial) 4 mg IV NOW STA Stop: 04/16/21 22:48 Last Admin: 04/16/21 23:49 Dose: 4 mg Documented by: [id number] Medical Decision Making Differential Diagnosis Appendicitis, testicular torsion, infections, diverticulitis, UTI, obstruction, mesenteric ischemia, aortic pathology, inflammatory bowel disease, renal colic, PUD, pancreatitis, biliary pathology, hernia, volvulus, constipation, as well as other pathologies. Medical Records Attestation: I reviewed the patient's medical records. Home Medications Current Medication List: was personally reviewed by me Laboratory Data Attestation: I reviewed the patient's lab results. Result diagrams: 04/16/21 23:39 04/17/21 07:16 Lab Results 04/16/21 04/16/21 04/16/21 Range/Units 23:15 23:15 23:39 WBC 4.75 L (4.8-10.8) K/uL RBC 4.65 L (4.7-6.1) M/uL Hgb 11.2 L (14.0-18.0) g/dL POC Hgb (14.0-18.0) g/dl Hct 36.3 L (42-52) % POC Hct (42-52) % MCV 78.1 L (80-100) fL MCH 24.1 L (25-34) pg MCHC 30.9 L (32-36) g/dL RDW Std Deviation 50.6 H (36.4-46.3) fL RDW Coeff of Heron 17.7 H (11.5-14.5) % Plt Count 305 (130-400) K/uL MPV 9.9 (7.4-10.4) fL Immature Gran % (Auto) 0.0 % Neut % (Auto) 51.1 % Lymph % (Auto) 35.2 % Morris % (Auto) 10.1 % Eos % (Auto) 3.2 % Baso % (Auto) 0.4 % Neut # (Auto) 2.43 (1.4-6.5) K/uL Lymph # (Auto) 1.67 (1.2-3.4) K/uL Morris # (Auto) 0.48 (0.11-0.59) K/uL Eos # (Auto) 0.15 (0-0.5) K/uL Baso # (Auto) 0.02 (0-0.2) K/uL Immature Gran # (Auto) 0.00 (0.00-0.02) K/uL PT (9.0-12.0) Seconds INR (0.9-1.1) POC Sodium (135-144) mmol/L Sodium (136-145) mmol/L POC Potassium (3.3-5.0) mmol/L Potassium (3.5-5.1) mmol/L POC Chloride (101-112) mmol/L Chloride (98-107) mmol/L Carbon Dioxide (21-32) mmol/L POC Total CO2 (24-31) mmol/L Anion Gap (3-11) POC Anion Gap (16-25) mmol/L POC BUN (7-18) mg/dl BUN (7-18) mg/dl Creatinine (0.6-1.4) mg/dl POC Creatinine (0.6-1.3) mg/dl Est Cr Clr Drug Dosing ml/min Est GFR ( Amer) ml/min Est GFR (Non-Af Amer) ml/min BUN/Creatinine Ratio (10-20) Glucose (70-99) mg/dl POC Glucose (other) (70-99) mg/dl Calcium (8.5-10.1) mg/dl POC Ioniz Calcium Shelley (1.12-1.32) mmol/l Total Bilirubin (0.2-1) mg/dl AST (15-37) U/L ALT (12-78) U/L Alkaline Phosphatase (45-117) U/L Troponin I (0-0.045) ng/ml Total Protein (6.4-8.2) gm/dl Albumin (3.4-5.0) gm/dl Globulin (2.5-4.0) gm/dl Albumin/Globulin Ratio (0.9-2) Lipase (73-393) U/L Urine Color Urine Appearance (Clear) Urine pH (4.5-7.5) Ur Specific Etters (1.000-1.030) Urine Protein (Negative) Urine Glucose (UA) (Negative) Urine Ketones (Negative) Urine Blood (Negative) Urine Nitrite (Negative) Urine Bilirubin (Negative) Urine Urobilinogen (Negative) Ur Leukocyte Esterase (Negative) Urine WBC (Auto) (0-5) /hpf Urine RBC (Auto) (0-4) /hpf U Hyaline Cast (Auto) (0-5) /lpf U Epithel Cells (Auto) (0-5) /lpf Urine Bacteria (Auto) (Negative) COVID-19 Eval Order Covid19 at [facility] SARS-CoV-2 (PCR) NEGATIVE (Negative) Blood Type Antibody Screen 04/16/21 04/16/21 04/16/21 Range/Units 23:39 23:39 23:40 WBC (4.8-10.8) K/uL RBC (4.7-6.1) M/uL Hgb (14.0-18.0) g/dL POC Hgb (14.0-18.0) g/dl Hct (42-52) % POC Hct (42-52) % MCV (80-100) fL MCH (25-34) pg MCHC (32-36) g/dL RDW Std Deviation (36.4-46.3) fL RDW Coeff of Heron (11.5-14.5) % Plt Count (130-400) K/uL MPV (7.4-10.4) fL Immature Gran % (Auto) % Neut % (Auto) % Lymph % (Auto) % Morris % (Auto) % Eos % (Auto) % Baso % (Auto) % Neut # (Auto) (1.4-6.5) K/uL Lymph # (Auto) (1.2-3.4) K/uL Morris # (Auto) (0.11-0.59) K/uL Eos # (Auto) (0-0.5) K/uL Baso # (Auto) (0-0.2) K/uL Immature Gran # (Auto) (0.00-0.02) K/uL PT 15.1 H (9.0-12.0) Seconds INR 1.5 H (0.9-1.1) POC Sodium (135-144) mmol/L Sodium 139 (136-145) mmol/L POC Potassium (3.3-5.0) mmol/L Potassium 3.9 (3.5-5.1) mmol/L POC Chloride (101-112) mmol/L Chloride 108 H (98-107) mmol/L Carbon Dioxide 25 (21-32) mmol/L POC Total CO2 (24-31) mmol/L Anion Gap 6.0 (3-11) POC Anion Gap (16-25) mmol/L POC BUN (7-18) mg/dl BUN 9 (7-18) mg/dl Creatinine 0.86 (0.6-1.4) mg/dl POC Creatinine (0.6-1.3) mg/dl Est Cr Clr Drug Dosing 97.8 ml/min Est GFR ( Amer) 107.7 ml/min Est GFR (Non-Af Amer) 92.9 ml/min BUN/Creatinine Ratio 11.0 (10-20) Glucose 91 (70-99) mg/dl POC Glucose (other) (70-99) mg/dl Calcium 9.3 (8.5-10.1) mg/dl POC Ioniz Calcium Shelley (1.12-1.32) mmol/l Total Bilirubin 0.3 (0.2-1) mg/dl AST 14 L (15-37) U/L ALT 24 (12-78) U/L Alkaline Phosphatase 84 (45-117) U/L Troponin I < 0.015 (0-0.045) ng/ml Total Protein 8.1 (6.4-8.2) gm/dl Albumin 3.3 L (3.4-5.0) gm/dl Globulin 4.8 H (2.5-4.0) gm/dl Albumin/Globulin Ratio 0.7 L (0.9-2) Lipase 312 (73-393) U/L Urine Color Urine Appearance (Clear) Urine pH (4.5-7.5) Ur Specific Etters (1.000-1.030) Urine Protein (Negative) Urine Glucose (UA) (Negative) Urine Ketones (Negative) Urine Blood (Negative) Urine Nitrite (Negative) Urine Bilirubin (Negative) Urine Urobilinogen (Negative) Ur Leukocyte Esterase (Negative) Urine WBC (Auto) (0-5) /hpf Urine RBC (Auto) (0-4) /hpf U Hyaline Cast (Auto) (0-5) /lpf U Epithel Cells (Auto) (0-5) /lpf Urine Bacteria (Auto) (Negative) COVID-19 Eval Order SARS-CoV-2 (PCR) (Negative) Blood Type O Positive Antibody Screen NEGATIVE 04/16/21 04/17/21 Range/Units 23:40 00:46 WBC (4.8-10.8) K/uL RBC (4.7-6.1) M/uL Hgb (14.0-18.0) g/dL POC Hgb 13.6 L (14.0-18.0) g/dl Hct (42-52) % POC Hct 40 L (42-52) % MCV (80-100) fL MCH (25-34) pg MCHC (32-36) g/dL RDW Std Deviation (36.4-46.3) fL RDW Coeff of Heron (11.5-14.5) % Plt Count (130-400) K/uL MPV (7.4-10.4) fL Immature Gran % (Auto) % Neut % (Auto) % Lymph % (Auto) % Morris % (Auto) % Eos % (Auto) % Baso % (Auto) % Neut # (Auto) (1.4-6.5) K/uL Lymph # (Auto) (1.2-3.4) K/uL Morris # (Auto) (0.11-0.59) K/uL Eos # (Auto) (0-0.5) K/uL Baso # (Auto) (0-0.2) K/uL Immature Gran # (Auto) (0.00-0.02) K/uL PT (9.0-12.0) Seconds INR (0.9-1.1) POC Sodium 141 (135-144) mmol/L Sodium (136-145) mmol/L POC Potassium 4.0 (3.3-5.0) mmol/L Potassium (3.5-5.1) mmol/L POC Chloride 102 (101-112) mmol/L Chloride (98-107) mmol/L Carbon Dioxide (21-32) mmol/L POC Total CO2 25 (24-31) mmol/L Anion Gap (3-11) POC Anion Gap 19.0 (16-25) mmol/L POC BUN 10 (7-18) mg/dl BUN (7-18) mg/dl Creatinine (0.6-1.4) mg/dl POC Creatinine 0.9 (0.6-1.3) mg/dl Est Cr Clr Drug Dosing ml/min Est GFR ( Amer) ml/min Est GFR (Non-Af Amer) ml/min BUN/Creatinine Ratio (10-20) Glucose (70-99) mg/dl POC Glucose (other) 94 (70-99) mg/dl Calcium (8.5-10.1) mg/dl POC Ioniz Calcium Shelley 1.23 (1.12-1.32) mmol/l Total Bilirubin (0.2-1) mg/dl AST (15-37) U/L ALT (12-78) U/L Alkaline Phosphatase (45-117) U/L Troponin I (0-0.045) ng/ml Total Protein (6.4-8.2) gm/dl Albumin (3.4-5.0) gm/dl Globulin (2.5-4.0) gm/dl Albumin/Globulin Ratio (0.9-2) Lipase (73-393) U/L Urine Color Yellow Urine Appearance Clear (Clear) Urine pH 6.0 (4.5-7.5) Ur Specific Etters 1.023 (1.000-1.030) Urine Protein Negative (Negative) Urine Glucose (UA) Negative (Negative) Urine Ketones Negative (Negative) Urine Blood Trace H (Negative) Urine Nitrite Negative (Negative) Urine Bilirubin Negative (Negative) Urine Urobilinogen Negative (Negative) Ur Leukocyte Esterase Trace H (Negative) Urine WBC (Auto) 1-5 (0-5) /hpf Urine RBC (Auto) 5-10 H (0-4) /hpf U Hyaline Cast (Auto) 1-5 (0-5) /lpf U Epithel Cells (Auto) 5-10 H (0-5) /lpf Urine Bacteria (Auto) Negative (Negative) COVID-19 Eval Order SARS-CoV-2 (PCR) (Negative) Blood Type Antibody Screen Imaging Data Radiologist's Impression: Abdomen/Pelvis CT 04/16/21 22:47 CT SCAN OF THE ABDOMEN AND PELVIS WITH IV CONTRAST CLINICAL HISTORY: Right lower quadrant abdominal pain. Recent colostomy. COMPARISON STUDY: Abdominal CT dated 03/16/2021. TECHNIQUE: Following the IV administration of 93 cc of Optiray 320, CT scan of the abdomen and pelvis is performed from the lung bases to the proximal femora. Images are reviewed in the axial, sagittal, and coronal planes. IV contrast was administered without complication. Note that the examination is suboptimal without enteric contrast. A dose lowering technique was utilized adhering to the principles of ALARA. CT DOSE: 446.52 mGy.cm FINDINGS: Lung bases: The heart is normal in size and without pericardial effusion. The lung bases are clear noting dependent atelectasis. There is a small hiatal hernia. Liver: The contrast-enhanced liver is normal in size, contour, and attenuation. There is no intrahepatic biliary ductal dilatation. The hepatic veins and portal veins are patent. Scattered subcentimeter hepatic hypodensities likely represent cysts but are too small for definitive characterization. Gallbladder: Unremarkable. Spleen: Normal in size and attenuation. Pancreas: Unremarkable. Adrenal glands: Unremarkable. Kidneys: The contrast enhanced kidneys are normal in size and without hydron ephrosis. The kidneys enhance symmetrically. Abdominal vasculature: There is mild to moderate atherosclerotic calcification and ectasia of the abdominal aorta. There is also ectasia of the iliac arteries. Bowel: There is postoperative change from left-sided colon resection with left lower quadrant colostomy. A sigmoid stump is noted in the pelvis. There are mildly distended and fluid-filled loops of small bowel which measure up to 3.3 cm. There is no evidence of high-grade obstruction. No transition point is identified. There is no pneumatosis intestinalis or portal venous gas. The appendix is well-visualized and normal. There is mild diverticulosis of the colon without CT evidence of acute diverticulitis. Peritoneum: There is no intraperitoneal free air or abdominal ascites. There is dehiscence of the ventral abdominal wall. Lymphadenopathy: None. Pelvic viscera: The prostate gland is mildly enlarged and heterogeneous. Question previous TURP. The bladder is distended but otherwise normal in appearance. Skeletal structures: No lytic or blastic lesions are seen. IMPRESSION: 1. There is postoperative change from left-sided colon resection with left lower quadrant colostomy. 2. There is no high-grade bowel obstruction. 3. The small bowel loops are mildly distended and fluid-filled with no discrete transition point identified. This could represent a mild ileus versus low grade/partial obstruction. Clinical correlation will be essential. 4. No intraperitoneal free air is identified. 5. Additional findings as above. ACT 112: Negative or not required by law. Electronically signed by: Parviz Blanca M.D. 04/17/2021 8:50 AM ECG Data Additional Comments: Sinus tachycardia, rate of 102, normal intervals, normal axis, T WI anteriorly. No significant change from comparison EKG March 15, 2021. MDM Narrative The patient did present with concern for right-sided Tylenol swelling and pain. The patient did have blood work completed. Blood work is grossly unremarkable. The patient's pain was mildly improved. There was concern for possible small bowel obstruction as the patient did have dilated small bowel with no focal transition point. No other concerning findings at this time. The patient does have an unfortunate history of a TURP and then developed what is reported as a perforated diverticulitis status post partial intestinal removal and subsequent colostomy placement. This was completed at [facility] in February. Patient's colostomy is draining. Given the concern for the partial small bowel I did speak to the on-call hospitalist Dr. Puri and the patient was admitted to the medicine service. 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 Currently subtherapeutic. Patient does not complain of any chest pain shortness of breath. Urinalysis does not show any evidence of obvious infection. Covid negative. Impression & Plan Partial bowel obstruction, Colostomy present, Abdominal pain Discharge Plan Visit Data Chief Complaint: Swelling/Edema to Extremity Stated Complaint: SWELLING AT POST SURGICAL SITE ED Provider: Keo Bauman Discharge Problem: Partial bowel obstruction, Colostomy present, Abdominal pain Patient Disposition: Admitted As Inpatient Discharge Instructions Interventions: ED Discharge Assessment Last Done: 04/17/21 03:15
[2021-04-16] MEDS ORDERED: ONDANSETRON INJ 2 MG/ML 2 ML VIAL IV STA (22:47)
[2021-04-16] MEDS ORDERED: SODIUM CHLORIDE 0.9% 500 ML IV STA (22:47)
[2021-04-16] MEDS ORDERED: MoRPHine SULFATE 4 MG/ML 1 ML CARP\\VIAL IV STA (22:47)
[2021-04-16] MEDS ORDERED: OPTIRAY 320 100ml IV ONE (23:52)
[2021-04-16 23:54] LABS: iSTAT Creatinine 0.9 mg/dl (0.6-1.3); iSTAT Hemoglobin 13.6 g/dl (14.0-18.0); iSTAT Ionized Calcium 1.23 mmol/l (1.12-1.32)
[2021-04-16 23:54] LABS: Basophils # (auto) 0.02 K/uL (0-0.2); Basophils % (auto) 0.4 %; Eosinophils # (auto) 0.15 K/uL (0-0.5); Eosinophils % (auto) 3.2 %; Hematocrit (blood only) 36.3 % (42-52); Hemoglobin 11.2 g/dL (14.0-18.0); Lymphocytes # (auto) 1.67 K/uL (1.2-3.4); Lymphocytes % (auto) 35.2 %; Mean Corpuscular Hemoglobin 24.1 pg (25-34); Mean Corpuscular Hgb Conc 30.9 g/dL (32-36); Mean Corpuscular Volume 78.1 fL (80-100); Mean Platelet Volume 9.9 fL (7.4-10.4); Monocytes # (auto) 0.48 K/uL (0.11-0.59); Monocytes % (auto) 10.1 %; Neutrophils # (auto) 2.43 K/uL (1.4-6.5); Neutrophils % (auto) 51.1 %; Platelet Count 305 K/uL (130-400); RDW Coefficient of Variation 17.7 % (11.5-14.5); RDW Standard Deviation 50.6 fL (36.4-46.3); Red Blood Count 4.65 M/uL (4.7-6.1); White Blood Count 4.75 K/uL (4.8-10.8)
[2021-04-17 00:07] LABS: INR 1.5 (0.9-1.1); Prothrombin Time 15.1 Seconds (9.0-12.0)
[2021-04-17 00:19] LABS: Alanine Aminotransferase 24 U/L (12-78); Albumin Level 3.3 gm/dl (3.4-5.0); Aspartate Aminotransferase 14 U/L (15-37); Blood Urea Nitrogen 9 mg/dl (7-18); Calcium 9.3 mg/dl (8.5-10.1); Carbon Dioxide 25 mmol/L (21-32); Chloride 108 mmol/L (98-107); Creatinine Clr Calc Pharmacy 97.8 ml/min; Est GFR (African American) 107.7 ml/min; Est GFR (Non-African American) 92.9 ml/min; Glucose 91 mg/dl (70-99); Lipase 312 U/L (73-393); Potassium 3.9 mmol/L (3.5-5.1); Sodium 139 mmol/L (136-145)
[2021-04-17 00:24] LABS: Albumin Globulin Ratio 0.7 (0.9-2); Alkaline Phosphatase 84 U/L (45-117); Bilirubin,Total 0.3 mg/dl (0.2-1); Globulin 4.8 gm/dl (2.5-4.0); Total Protein 8.1 gm/dl (6.4-8.2); Troponin I < 0.015 ng/ml (0-0.045)
[2021-04-17 01:05] LABS: Appearance Urine Clear (Clear); Bacteria Urine Automated Negative (Negative); Bilirubin Urine Negative (Negative); Blood Urine Trace (Negative); Color Urine Yellow; Glucose Urine UA Negative (Negative); Ketones Urine Negative (Negative); Leukocyte Esterase Urine Trace (Negative); Nitrite Urine Negative (Negative); Protein Urine Negative (Negative); Specific Gravity Urine 1.023 (1.000-1.030); Urobilinogen Urine Negative (Negative)
--- NOTE | 2021-04-17 02:42 | History & Physical Report ---
Date of Service April 17, 2021 Assessment & Plan (1) Small bowel obstruction, partial: Plan: 61 yo M w/ pMHx. of TURP, Diverticular disease complicated by perforation s/p colostomy that lead to a PE (on Warfarin) presenting with intermittent pain in his abdomen Admit to med/surg concern for partial small bowel obstruction with increased output lately, intermittent pain and distension, differential includes gastroenteritis or colitis along with diverticulitis although reassuring labs and vitals at this time CT a/p STAT RAD read: distended segments of small bowel suggestive of low grade or partial SBO - follow up final CT read - continue NPO for now and consider advancing diet as tolerated if he has improved pain - holding lactulose and colase for now - if abdominal pain acutely worsens consider KUB and NGT - GI consulted Prior PE in the post operative setting - prior labs including FVL and lupus were negative - continue Warfarin, monitor INR BPH s/p TURP with prior history of UTI's, currently asymptomatic - UA with trace LCE - continue to monitor for now - f/u urine culture DVT prophylaxis: Warfarin Code: full Diet: NPO Dispo: pending further evaluation (2) Pulmonary emboli: (3) BPH (benign prostatic hyperplasia): (4) Diverticular disease: (5) HLD (hyperlipidemia): (6) S/P TURP: (7) Colostomy present: (8) Wound of abdomen: (9) Acute massive pulmonary embolism: History of Present Illness Chief Complaint: intermittent abdominal pain Primary Care Provider: [facility] Mr. Katlyn Rene is a 60 y/o M with a PMHx of BPH, diverticular disease and HLD. He is currently incarcerated at [facility]. He presented to the ED with c/o intermittent abdominal pain and bloating that is positional. He has had increased liquid output from his colostomy, having to empty it 6 times today. There is no blood in the output, he has no drainage from his abdominal wound. Pt is a vague historian. He has had somewhat of a complicated course over the past 2 months. He was previously incarcerated at [facility]. He underwent a TURP procedure at [facility] that was uneventful. At that time, he was dealing with mild abd pain and has known diverticulitis. Following the TURP procedure, he ended up back at [facility] (given limited details) and claims that he had a perforated tic and ended up with a diverting colostomy. Uncertain of the surgeon. Subsequently, developed a nonhealing wound on the right mid abd requiring a wound vac. Was unable to receive wound care at [facility] and was relocated to [facility] here in [place]. He was then mostly bedbound. He was able to go to the bathroom and perform limited activit. He subsequently developed a PE and was admitted to [facility] and discharged on Warfarin. He is coming today from [facility]. Allergies Allergy/AdvReac Type Severity Reaction Status Date / Time No Known Allergies Allergy Unverified 04/17/21 01:46 Home Medications Medication Instructions Recorded Confirmed Type bisacodyl 5 mg tablet,delayed 5 mg PO DAILY 03/14/21 04/17/21 History release docusate sodium 100 mg capsule 100 mg PO BID 03/14/21 04/17/21 History (Colace) lactulose 10 gram/15 mL oral 20 g PO DAILY PRN 03/14/21 04/17/21 History solution A&D Ointment 1 applic TOPICAL BID 04/17/21 04/17/21 History ascorbic acid (vitamin C) 1,000 mg 1 g PO DAILY 04/17/21 04/17/21 History tablet (Vitamin C) cholecalciferol (vitamin D3) 25 25 mcg PO DAILY 04/17/21 04/17/21 History mcg (1,000 unit) tablet (Vitamin D3) ferrous sulfate 325 mg (65 mg 325 mg PO DAILY 04/17/21 04/17/21 History iron) tablet,delayed release sodium chloride 0.65 % nasal spray 2 spray INTRANASAL .QID&PRN 04/17/21 04/17/21 History aerosol ([place] Saline) warfarin 2 mg tablet 2 mg PO DAILY 04/17/21 04/17/21 History warfarin 5 mg tablet 5 mg PO DAILY 04/17/21 04/17/21 History Past Med/Surg History Medical History BPH (benign prostatic hyperplasia) Diverticulitis of colon with perforation HLD (hyperlipidemia) No pertinent family history Surgical History History of bilateral inguinal herniorrhaphies Hx of colostomy S/P TURP Social History Smoking Status: Former smoker Second Hand Exposure: No; Do You Dip or Chew Tobacco: No; Tobacco Cessation Education Requested by Patient: No Hx Alcohol Use: No Hx Substance Use: No Preferred Language: Danish Communication Ability: Effective Web Analytics Specialist Required: No Beliefs That Will Affect Care: None Current Living Situation: Other Current Living Situation Comment: [facility]. Other Information That Helps Us Care for You: No Feels Safe at Home: Yes Safety Concerns: Feels Safe At This Time Assistive Devices: None Review of Systems Review of Systems: denies: fevers, chills, nausea, vomiting, night sweats, falls, LOC, syncope or presyncope, stuffiness, sneezing, sore throat, chest pain, palpitations, hemoptysis, blood in stool, urinary urgency, frequency or pressure admits: cough with clear sputum Physical Exam Constitutional: WD/WN, vitals as above Eyes: PERRL, conjunctivae normal, anicteric sclerae ENMT: external ear and nose normal, oropharynx normal Neck: normal visual inspection Respiratory: normal respiratory effort, lungs clear to auscultation Cardiovascular: RRR, no murmur, no edema Gastrointestinal (Abdomen): - soft - colostomy in place at left of midline with adjacent midline wound with bandage in place - some drainage in colostomy - RLQ tenderness to palpation - slightly guarding - bowel sound present Skin: no rashes, warm and dry - wound with covering that has some dried blood on the right edge otherwise c/d/i Results & Data Results & Data ([facility]) Vital Signs (Past 12 Hours) Vital Signs Temp Pulse Resp BP BP Pulse Ox 04/16/21 23:25 150/64 H 04/16/21 21:30 36.7 C 72 20 118/82 98 CBC Results Results Complete Blood Count Results: RBC 4.65 M/uL (4.7-6.1) L 04/16/21 WBC 4.75 K/uL (4.8-10.8) L 04/16/21 Hgb 11.2 g/dL (14.0-18.0) L 04/16/21 Hct 36.3 % (42-52) L 04/16/21 Plt Count 305 K/uL (130-400) 04/16/21 Chemistry (BMP) Results BMP Results: Sodium 140 mmol/L (136-145) 04/17/21 Potassium 4.4 mmol/L (3.5-5.1) 04/17/21 Chloride 110 mmol/L (98-107) H 04/17/21 BUN 7 mg/dl (7-18) 04/17/21 Creatinine 0.72 mg/dl (0.6-1.4) 04/17/21 Glucose 92 mg/dl (70-99) 04/17/21 Code Status & VTE Plan VTE Prophylaxis Plan VTE Prophylaxis will be ordered: Yes Supervising Physician Co-Signing Physician Notes Attending addendum: I have physically seen this patient, have supervised the medical residents activities, and agree with the H&P unless as otherwise noted. Assessment and Plan: Partial small bowel obstruction- No transition point NPO IV fluids Serial CBC with differential, chemistry profile Zosyn 4.5 g IV every 8 hours Zofran 4 mg IV every 6 hours as needed Famotidine 20 mg IV every 12 hours Consult gastroenterology History of PE- Subtherapeutic on warfarin with INR 1.[address] on heparin IV Remaining orders and notations as noted Resident Activity Tracking Resident Involvement: Resident Care Provided Care Provided: Adult Hospital Medicine (1) BPH (benign prostatic hyperplasia) Lower urinary tract symptom presence: unspecified whether lower urinary tract symptoms present Qualified Code(s): N40.0 - Benign prostatic hyperplasia without lower urinary tract symptoms (2) HLD (hyperlipidemia) Hyperlipidemia type: unspecified Qualified Code(s): E78.5 - Hyperlipidemia, unspecified (3) Pulmonary emboli Acute cor pulmonale presence: unspecified Chronicity: acute Pulmonary embolism type: saddle Qualified Code(s): I26.92 - Saddle embolus of pulmonary artery without acute cor pulmonale
[2021-04-17] MEDS ORDERED: SODIUM CHLORIDE 0.65% NA SOLN 45 ML (OCEAN) PRN (03:55)
[2021-04-17] MEDS: SODIUM CHLORIDE 0.65% NA SOLN 45 ML (OCEAN) SCH ×4 (04:54→22:54)
[2021-04-17] MEDS: SODIUM CHLORIDE 0.9% 500 ML IV SCH ×2 (04:55→16:29)
[2021-04-17 07:45] LABS: INR 1.6 (0.9-1.1); Prothrombin Time 15.4 Seconds (9.0-12.0)
[2021-04-17] MEDS: CHOLECALCIFEROL 1,000 UNITS 25 MCG TAB PO SCH (07:47)
[2021-04-17] MEDS: ASCORBIC ACID 500 MG TAB PO SCH (07:47)
[2021-04-17 08:06] LABS: BUN Creatinine Ratio 9.1 (10-20); Calcium 9.1 mg/dl (8.5-10.1); Creatinine Clr Calc Pharmacy 116.8 ml/min; Est GFR (African American) 115.9 ml/min; Potassium 4.4 mmol/L (3.5-5.1)
--- NOTE | 2021-04-17 08:52 | CT Scan Report ---
CT SCAN OF THE ABDOMEN AND PELVIS WITH IV CONTRAST CLINICAL HISTORY: Right lower quadrant abdominal pain. Recent colostomy. COMPARISON STUDY: Abdominal CT dated 03/16/2021. TECHNIQUE: Following the IV administration of 93 cc of Optiray 320, CT scan of the abdomen and pelvi s is performed from the lung bases to the proximal femora. Images are reviewed in the axial, sagittal , and coronal planes. IV contrast was administered without complication. Note that the examination is suboptimal without enteric contrast. A dose lowering technique was utilized adhering to the principl es of ALA. CT DOSE: 446.52 mGy.cm FINDINGS: Lung bases: The heart is normal in size and without pericardial effusion. The lung bases are clear no ting dependent atelectasis. There is a small hiatal hernia. Liver: The contrast-enhanced liver is normal in size, contour, and attenuation. There is no intrahepa tic biliary ductal dilatation. The hepatic veins and portal veins are patent. Scattered subcentimeter hepatic hypodensities likely represent cysts but are too small for definitive characterization. Gallbladder: Unremarkable. Spleen: Normal in size and attenuation. Pancreas: Unremarkable. Adrenal glands: Unremarkable. Kidneys: The contrast enhanced kidneys are normal in size and without hydronephrosis. The kidneys enh ance symmetrically. Abdominal vasculature: There is mild to moderate atherosclerotic calcification and ectasia of the abd ominal aorta. There is also ectasia of the iliac arteries. Bowel: There is postoperative change from left-sided colon resection with left lower quadrant colosto my. A sigmoid stump is noted in the pelvis. There are mildly distended and fluid-filled loops of smal l bowel which measure up to 3.3 cm. There is no evidence of high-grade obstruction. No transition poi nt is identified. There is no pneumatosis intestinalis or portal venous gas. The appendix is well-vi sualized and normal. There is mild diverticulosis of the colon without CT evidence of acute diverticu litis. Peritoneum: There is no intraperitoneal free air or abdominal ascites. There is dehiscence of the vijay tral abdominal wall. Lymphadenopathy: None. Pelvic viscera: The prostate gland is mildly enlarged and heterogeneous. Question previous TURP. The bladder is distended but otherwise normal in appearance. Skeletal structures: No lytic or blastic lesions are seen. IMPRESSION: 1. There is postoperative change from left-sided colon resection with left lower quadrant colostomy. 2. There is no high-grade bowel obstruction. 3. The small bowel loops are mildly distended and fluid-filled with no discrete transition point iden tified. This could represent a mild ileus versus low grade/partial obstruction. Clinical correlation will be essential. 4. No intraperitoneal free air is identified. 5. Additional findings as above. ACT 112: Negative or not required by law. Electronically signed by: Parviz Blanca M.D. 04/17/2021 8:50 AM
--- NOTE | 2021-04-17 09:22 | Gastrointestinal Consultation ---
Date of Consultation April 17, 2021 Assessment & Plan (1) Abdominal distention: Patient with a possible mild small bowel ileus versus enteritis. His diarrhea yesterday can likely either be infectious or resultant of a resolving nonmechanical obstruction. He looks quite well today. Other than checking stool studies at this time which I would include to be bacterial, C. difficile, and viral. No other role for gastroenterology intervention. No evidence of IBD. He does have an obstruction it would likely be related to his obvious postsurgical issues that he is had recently. Given his CT scan it does not appear that he has an high-grade obstruction that will need intervention. If w ian I would ask general surgery to come by, otherwise I would check stool studies, continue supportive care, start with liquid diet advance as tolerated. Ensure that his electrolytes and metabolically remain normal, and avoid narcotics as necessary. Will sign off, please call with any questions. History of Present Illness Reason for Consultation: Concern for small bowel obstruction Attending Physician: Luigi Cerda MD History of Present Illness Mr. Katlyn Rene is a 60 y/o M with a PMHx of BPH, diverticular disease and HLD who is incarcerated at [facility]. He presents to the ED with c/o intermittent abdominal pain and bloating that is positional mainly located on his right lower quadrant. He had his wound on his anterior abdomen change yesterday, and [facility] noted he had a right lower quadrant bulge. He stated that it was very full and mildly painful upon standing. He notes that he had increased ostomy output yesterday, having to empty it 6 times today. There is no blood in the output, he has no drainage from his abdominal wound. He denies any fevers chills nausea or vomiting. Over the past 2 months, He underwent a TURP procedure at [facility] that was uneventful. At that time, he was dealing with mild abd pain and has known diverticulitis. Following the TURP procedure, he ended up back at [facility] with an apparent perforated diverticula ended up with a diverting colostomy. Subsequently, developed a nonhealing wound on the right mid abd requiring a wound vac. Was unable to receive wound care at [facility] and was relocated to [facility] here in [place]. He subsequently developed a PE and was admitted to [facility] and discharged on Warfarin. Today states he feels much better, he has no nausea, his ostomy is functioning properly and his abdomen is soft and he feels improved. CT scan as below, but specifically no evidence of a high level transition point, does have postsurgical changes and findings consistent with an ileus/enteritis. CT SCAN OF THE ABDOMEN AND PELVIS WITH IV CONTRAST CLINICAL HISTORY: Right lower quadrant abdominal pain. Recent colostomy. COMPARISON STUDY: Abdominal CT dated 03/16/2021. TECHNIQUE: Following the IV administration of 93 cc of Optiray 320, CT scan of the abdomen and pelvis is performed from the lung bases to the proximal femora. Images are reviewed in the axial, sagittal, and coronal planes. IV contrast was administered without complication. Note that the examination is suboptimal without enteric contrast. A dose lowering technique was utilized adhering to the principles of ALARA. CT DOSE: 446.52 mGy.cm FINDINGS: Lung bases: The heart is normal in size and without pericardial effusion. The lung bases are clear noting dependent atelectasis. There is a small hiatal hernia. Liver: The contrast-enhanced liver is normal in size, contour, and attenuation. There is no intrahepatic biliary ductal dilatation. The hepatic veins and portal veins are patent. Scattered subcentimeter hepatic hypodensities likely represent cysts but are too small for definitive characterization. Gallbladder: Unremarkable. Spleen: Normal in size and attenuation. Pancreas: Unremarkable. Adrenal glands: Unremarkable. Kidneys: The contrast enhanced kidneys are normal in size and without hydronephrosis. The kidneys enhance symmetrically. Abdominal vasculature: There is mild to moderate atherosclerotic calcification and ectasia of the abdominal aorta. There is also ectasia of the iliac arteries. Bowel: There is postoperative change from left-sided colon resection with left lower quadrant colostomy. A sigmoid stump is noted in the pelvis. There are mildly distended and fluid-filled loops of small bowel which measure up to 3.3 cm. There is no evidence of high-grade obstruction. No transition point is iden tified. There is no pneumatosis intestinalis or portal venous gas. The appendix is well-visualized and normal. There is mild diverticulosis of the colon without CT evidence of acute diverticulitis. Peritoneum: There is no intraperitoneal free air or abdominal ascites. There is dehiscence of the ventral abdominal wall. Lymphadenopathy: None. Pelvic viscera: The prostate gland is mildly enlarged and heterogeneous. Question previous TURP. The bladder is distended but otherwise normal in appearance. Skeletal structures: No lytic or blastic lesions are seen. IMPRESSION: 1. There is postoperative change from left-sided colon resection with left lower quadrant colostomy. 2. There is no high-grade bowel obstruction. 3. The small bowel loops are mildly distended and fluid-filled with no discrete transition point identified. This could represent a mild ileus versus low grade/partial obstruction. Clinical correlation will be essential. 4. No intraperitoneal free air is identified. 5. Additional findings as above. Allergies Allergy/AdvReac Type Severity Reaction Status Date / Time No Known Allergies Allergy Unverified 04/17/21 01:46 Home Medications Medication Instructions Recorded Confirmed Type bisacodyl 5 mg tablet,delayed 5 mg PO DAILY 03/14/21 04/17/21 History release docusate sodium 100 mg capsule 100 mg PO BID 03/14/21 04/17/21 History (Colace) lactulose 10 gram/15 mL oral 20 g PO DAILY PRN 03/14/21 04/17/21 History solution A&D Ointment 1 applic TOPICAL BID 04/17/21 04/17/21 History ascorbic acid (vitamin C) 1,000 mg 1 g PO DAILY 04/17/21 04/17/21 History tablet (Vitamin C) cholecalciferol (vitamin D3) 25 25 mcg PO DAILY 04/17/21 04/17/21 History mcg (1,000 unit) tablet (Vitamin D3) ferrous sulfate 325 mg (65 mg 325 mg PO DAILY 04/17/21 04/17/21 History iron) tablet,delayed release sodium chloride 0.65 % nasal spray 2 spray INTRANASAL .QID&PRN 04/17/21 04/17/21 History aerosol ([place] Saline) warfarin 2 mg tablet 2 mg PO DAILY 04/17/21 04/17/21 History warfarin 5 mg tablet 5 mg PO DAILY 04/17/21 04/17/21 History Patient History Medical History BPH (benign prostatic hyperplasia) Diverticulitis of colon with perforation HLD (hyperlipidemia) No pertinent family history Surgical History History of bilateral inguinal herniorrhaphies Hx of colostomy S/P TURP Social History Smoking Status: Former smoker Second Hand Exposure: No; Do You Dip or Chew Tobacco: No; Tobacco Cessation Education Requested by Patient: No Hx Alcohol Use: No Hx Substance Use: No Preferred Language: Faroese Communication Ability: Effective Fixed Income Director Required: No Beliefs That Will Affect Care: None Current Living Situation: Other Current Living Situation Comment: [facility]. Other Information That Helps Us Care for You: No Feels Safe at Home: Yes Safety Concerns: Feels Safe At This Time Assistive Devices: None Review of Systems Review of Systems: 10 system reviewed negative except for stated in the HPI Physical Exam Physical Exam: Awake alert oriented x3 Moving all extremities no apparent distress Heart is regular Lungs are clear Hypoactive sounds but present, soft nontender nondistended Left ostomy as well as dressing on anterior abdomen No peripheral edema Mentation intact neurologically intact No skin lesions Results & Data ([facility]) Vital Signs (Past 12 Hours) Vital Signs Temp Pulse Pulse Resp BP BP Pulse Ox 04/17/21 07:00 36.5 C 75 20 126/87 94 04/17/21 03:25 36.6 C 62 12 152/86 H 96 04/17/21 03:00 150/91 H 04/17/21 01:00 140/72 04/16/21 23:25 150/64 H 04/16/21 21:30 36.7 C 72 20 118/82 98 Pulse Ox 04/17/21 07:00 04/17/21 03:25 96 04/17/21 03:00 04/17/21 01:00 04/16/21 23:25 04/16/21 21:30
--- NOTE | 2021-04-17 10:15 | Hospitalist Progress Note ---
Date of Service April 17, 2021 Assessment & Plan (1) Small bowel obstruction, partial: Plan: 61 yo M w/ pMHx. of TURP, Diverticular disease complicated by perforation s/p colostomy that lead to a PE (on Warfarin) presenting with intermittent pain in his abdomen Small bowel ileus/enteritis with increased output lately, intermittent pain and distension, differential includes gastroenteritis or colitis along with diverticulitis although macrina ssuring labs and vitals at this time CT a/p 04/17 STAT RAD read: distended segments of small bowel suggestive of low grade or partial SBO - CTAP 04/17- postop surgical changes, mild distension of small bowel with no transition point, colonic diverticulosis - Advanced diet to clears - Holding lactulose and colace for now - if abdominal pain acutely worsens consider KUB/CTAP and NGT - GI consulted 04/17- SBO unlikely, more likely ileus vs enteritis. Recommended C diff testing, ordered today - Supportive care for now, if symptoms worsen then general surgery consult will follow Prior PE in the post operative setting - prior labs including FVL and lupus were negative - continue Warfarin, monitor INR. Started heparin bolus/drip, will trend INRs and discontinue Coumadin once INR in therapeutic range. BPH s/p TURP with prior history of UTI's, currently asymptomatic - UA with trace LCE - continue to monitor for now - f/u urine culture DVT prophylaxis: Warfarin, Heparin Code: full Diet: Clears Dispo: pending further evaluation (2) Pulmonary emboli: (3) BPH (benign prostatic hyperplasia): (4) Diverticular disease: (5) HLD (hyperlipidemia): (6) S/P TURP: (7) Colostomy present: (8) Wound of abdomen: (9) Acute massive pulmonary embolism: Admission and Anticipated Discharge Date Admission Date: April 17, 2021 Supervising Physician Co-Signing Physician Notes Attending Attestation - Pt seen/examined, chart reviewed, care plan d/w PGY1 Dr Luis Albarran. I agree w/ the garg components of his documentation. Pt feeling better when I saw him on my afternoon rounds. abd discomfort remains but improved. passing flatus and some stool via ostomy. no vomiting; tolerating clears. VSS gen - NAD heart - RRR lungs - CTA b/l abd - mildly distended, BS+, large open midline wound w/ dressing in place, colostomy with bag in place left abdomen, minimal tenderness lower quadrants ext - no edema A/P: pSBO vs enteritis. resolving. clears. IV fluids. check c diff. abdominal wound - consult wound care. needs better nutrition, MVI, etc. sandra PE 02/2021 - since it was massive (and recent) - given subtherapeutic INR - start heparin bridge. cont coumadin. daily INR. Justin Staton MD Subjective Pt reports improvement in abdominal pain, endorses minor nausea. States he emptied colostomy bag 6 times day prior with loose brown-colored stools. No difficulty urinating, eager to try clear liquids. Denies chest pain, dyspnea, fever, chills. Review of Systems Review of Systems: All systems reviewed & are unremarkable except as noted in Subjective Gastrointestinal: +Improving abdominal pain, nausea, loose stools, no vomiting, no melena Physical Exam Constitutional: WD/WN, vitals as above Eyes: PERRL, conjunctivae normal, anicteric sclerae Neck: normal visual inspection Respiratory: normal respiratory effort, lungs clear to auscultation Cardiovascular: RRR, no murmur, no edema Gastrointestinal (Abdomen): Distended, nontender, slightly hyperactive bowel sounds, no guarding or rebound, no rigidity Brown stool in ostomy bag, no melena or yessica blood Surgical dressings in place, no discharge or erythema around dressing Skin: no rashes, warm and dry Results & Data Results & Data ([facility]) Vital Signs (Past 12 Hours) Vital Signs Temp Pulse Resp BP Pulse Ox Pulse Ox 04/17/21 07:00 36.5 C 75 20 126/87 94 04/17/21 03:25 36.6 C 62 12 152/86 H 96 96 04/17/21 03:00 150/91 H 04/17/21 01:00 140/72 04/16/21 23:25 150/64 H Resident Activity Tracking Resident Involvement: Resident Care Provided Care Provided: Adult Hospital Medicine (1) BPH (benign prostatic hyperplasia) Lower urinary tract symptom presence: unspecified whether lower urinary tract symptoms present Qualified Code(s): N40.0 - Benign prostatic hyperplasia without lower urinary tract symptoms (2) HLD (hyperlipidemia) Hyperlipidemia type: unspecified Qualified Code(s): E78.5 - Hyperlipidemia, unspecified (3) Pulmonary emboli Acute cor pulmonale presence: unspecified Chronicity: acute Pulmonary embolism type: saddle Qualified Code(s): I26.92 - Saddle embolus of pulmonary artery without acute cor pulmonale
[2021-04-17] MEDS ORDERED: HEPARIN SOD (PORCINE) 1000 UNIT/ML IV ONE (13:11)
[2021-04-17] MEDS ORDERED: Heparin IV Adult Wt-Based Standard WITH Bolus Protocol IV SCH (13:15)
[2021-04-17] MEDS ORDERED: HEPARIN IV BOLUS 7,000 UNITS in SYRINGE 0 ML IV ONE (14:15)
[2021-04-17] MEDS: HEPARIN SODIUM/DEXTROSE 25,000 UNITS/500 ML BAG IV SCH (16:06)
[2021-04-17] MEDS: WARFARIN SOD 5 MG TAB PO SCH (16:29)
[2021-04-17] MEDS: WARFARIN SOD 2 MG TAB PO SCH (16:30)
--- NOTE | 2021-04-17 19:54 | Billing Data ---
Date of Service April 17, 2021 Coding Level of Care Code 07767 Initial Inpt Care Lvl 2
[2021-04-17 23:16] LABS: Partial Thromboplastin Ratio > 5.3
[2021-04-17 23:18] LABS: Partial Thromboplastin Time > 139.0 Seconds (21.0-31.0)
[2021-04-18] MEDS ORDERED: ACETAMINOPHEN 325 MG TAB PO PRN (00:14)
[2021-04-18 01:09] LABS: Partial Thromboplastin Ratio 3.9
[2021-04-18 01:13] LABS: Partial Thromboplastin Time 102.7 Seconds (21.0-31.0)
[2021-04-18 02:32] LABS: Basophils # (auto) 0.02 K/uL (0-0.2); Basophils % (auto) 0.5 %; Eosinophils # (auto) 0.16 K/uL (0-0.5); Hemoglobin 11.4 g/dL (14.0-18.0); Lymphocytes # (auto) 1.35 K/uL (1.2-3.4); Lymphocytes % (auto) 33.6 %; Mean Corpuscular Hemoglobin 24.5 pg (25-34); Mean Corpuscular Hgb Conc 30.8 g/dL (32-36); Mean Corpuscular Volume 79.4 fL (80-100); Mean Platelet Volume 9.8 fL (7.4-10.4); Monocytes # (auto) 0.21 K/uL (0.11-0.59); Monocytes % (auto) 5.2 %; Neutrophils # (auto) 2.28 K/uL (1.4-6.5); Neutrophils % (auto) 56.7 %; Platelet Count 292 K/uL (130-400); RDW Coefficient of Variation 17.8 % (11.5-14.5); RDW Standard Deviation 51.6 fL (36.4-46.3); Red Blood Count 4.66 M/uL (4.7-6.1); White Blood Count 4.02 K/uL (4.8-10.8)
[2021-04-18 02:47] LABS: Partial Thromboplastin Ratio 1.6
[2021-04-18 02:53] LABS: BUN Creatinine Ratio 7.4 (10-20); Calcium 8.9 mg/dl (8.5-10.1); Creatinine Clr Calc Pharmacy 135.6 ml/min; Est GFR (African American) 123.2 ml/min; Est GFR (Non-African American) 106.3 ml/min; Potassium 3.5 mmol/L (3.5-5.1)
--- NOTE | 2021-04-18 09:28 | Hospitalist Progress Note ---
Date of Service April 18, 2021 Assessment & Plan (1) Small bowel obstruction, partial: Plan: 61 yo M w/ pMHx. of TURP, Diverticular disease complicated by perforation s/p colostomy that lead to a PE (on Warfarin) presenting with intermittent pain in his abdomen Small bowel ileus/enteritis - CTAP 04/17- postop surgical changes, mild distension of small bowel with no transition point, colonic diverticulosis - GI consulted 04/17- SBO unlikely, more likely ileus vs enteritis. C diff studies pending - Clinically improving, will advance diet to full liquids for evening - PRN Tylenol for pain - if abdominal pain acutely worsens consider KUB/CTAP and NGT - Supportive care for now, if symptoms worsen then general surgery consult will follow - Wound care nurse consulted Prior PE in the post operative setting - prior labs including FVL and lupus were negative - continue Warfarin, monitor INR. Started heparin bolus/drip 04/18, will trend INRs and discontinue Coumadin once INR in therapeutic range - INR currently 1.7 BPH s/p TURP with prior history of UTI's, currently asymptomatic - UA with trace LCE - continue to monitor for now - f/u urine culture DVT prophylaxis: Warfarin, Heparin Code: full Diet: Clears Dispo: pending further evaluation (2) Pulmonary emboli: (3) BPH (benign prostatic hyperplasia): (4) Diverticular disease: (5) HLD (hyperlipidemia): (6) S/P TURP: (7) Colostomy present: (8) Wound of abdomen: (9) Acute massive pulmonary embolism: Admission and Anticipated Discharge Date Admission Date: April 17, 2021 Supervising Physician Co-Signing Physician Notes Attending Attestation - Pt seen/examined, chart reviewed, care plan d/w PGY1 Dr Luis Albarran. I agree w/ the garg components of his documentation. main concern is that his abdomen "sticks out" in the lower quadrants b/l. he has mild pain related to such. passing flatus via ostomy. no significant stool. no n/v. wants more food. VSS, no fever gen - NAD heart - RRR, s1 s2 lungs - CTA b/l abd - mildly distended but improved from yesterday's exam; BS+, large open midline wound w/ dressing in place, colostomy with bag in place left abdomen, minimal tenderness lower quadrants ext - no edema A/P: pSBO vs enteritis. favor former. resolving. advance diet to full liquis. check c diff & stool culture to ensure no infectious etiology but felt much less likely. abdominal wound - consult wound care on Monday. needs better nutrition, MVI, etc. discussed pt's CT a/p with him - although he has a large midline wound there is no ventral hernia. saddle PE 02/2021 - INR 1.7 today; continue heparin w/ coumadin. daily INR. progressing. Justin Staton MD Subjective Pt reports improvement in abdominal pain near colostomy site after receiving PRN Tylenol last night. Continues to pass gas and some stool through colostomy bag. No difficulty urinating, ambulating and tolerating clear liquids well, eager to try solids. Denies chest pain, dyspnea, fever, chills. Review of Systems Review of Systems: All systems reviewed & are unremarkable except as noted in Subjective Gastrointestinal: +Improving abdominal pain, no nausea, no vomiting, no diarrhea, no melena Physical Exam Constitutional: WD/WN, vitals as above Eyes: PERRL, conjunctivae normal, anicteric sclerae Neck: normal visual inspection Respiratory: normal respiratory effort, lungs clear to auscultation Cardiovascular: RRR, no murmur, no edema Gastrointestinal (Abdomen): Less distended, normal bowel sounds, no TTP, no guarding or rebound tenderness Wound dressing in place without any erythema or discharge, colostomy bag in place with minimal brown stools Skin: no rashes, warm and dry Results & Data Results & Data ([facility]) Vital Signs (Past 12 Hours) Vital Signs Temp Resp BP Pulse Ox 04/17/21 23:36 36.7 C 17 120/73 98 Laboratory Results Laboratory Results - last 24 hr 04/17/21 04/18/21 04/18/21 22:13 00:25 02:09 WBC 4.02 L RBC 4.66 L Hgb 11.4 L Hct 37.0 L MCV 79.4 L MCH 24.5 L MCHC 30.8 L RDW Std Deviation 51.6 H RDW Coeff of [place] 17.8 H Plt Count 292 MPV 9.8 Immature Gran % (Auto) 0.0 Neut % (Auto) 56.7 Lymph % (Auto) 33.6 [place] % (Auto) 5.2 Eos % (Auto) 4.0 Baso % (Auto) 0.5 Neut # (Auto) 2.28 Lymph # (Auto) 1.35 [place] # (Auto) 0.21 Eos # (Auto) 0.16 Baso # (Auto) 0.02 Immature Gran # (Auto) 0.00 PT INR APTT > 139.0 H* 102.7 H* PTT Ratio > 5.3 3.9 Sodium Potassium Chloride Carbon Dioxide Anion Gap BUN Creatinine Est Cr Clr Drug Dosing Est GFR ( Amer) Est GFR (Non-Af Amer) BUN/Creatinine Ratio Glucose Calcium 04/18/21 04/18/21 04/18/21 02:09 02:09 08:56 WBC RBC Hgb Hct MCV MCH MCHC RDW Std Deviation RDW Coeff of [place] Plt Count MPV Immature Gran % (Auto) Neut % (Auto) Lymph % (Auto) [place] % (Auto) Eos % (Auto) Baso % (Auto) Neut # (Auto) Lymph # (Auto) [place] # (Auto) Eos # (Auto) Baso # (Auto) Immature Gran # (Auto) PT 16.4 H INR 1.7 H APTT 41.0 H 61.2 H* PTT Ratio 1.6 2.3 Sodium 139 Potassium 3.5 D Chloride 109 H Carbon Dioxide 25 Anion Gap 5.0 BUN 5 L Creatinine 0.62 Est Cr Clr Drug Dosing 135.6 Est GFR ( Amer) 123.2 Est GFR (Non-Af Amer) 106.3 BUN/Creatinine Ratio 7.4 L Glucose 79 Calcium 8.9 Resident Activity Tracking Resident Involvement: Resident Care Provided Care Provided: Adult Hospital Medicine (1) BPH (benign prostatic hyperplasia) Lower urinary tract symptom presence: unspecified whether lower urinary tract symptoms present Qualified Code(s): N40.0 - Benign prostatic hyperplasia without lower urinary tract symptoms (2) HLD (hyperlipidemia) Hyperlipidemia type: unspecified Qualified Code(s): E78.5 - Hyperlipidemia, unspecified (3) Pulmonary emboli Acute cor pulmonale presence: unspecified Chronicity: acute Pulmonary embolism type: saddle Qualified Code(s): I26.92 - Saddle embolus of pulmonary artery without acute cor pulmonale
[2021-04-18] MEDS: ASCORBIC ACID 500 MG TAB PO SCH (09:31)
[2021-04-18] MEDS: CHOLECALCIFEROL 1,000 UNITS 25 MCG TAB PO SCH (09:31)
[2021-04-18] MEDS: SODIUM CHLORIDE 0.65% NA SOLN 45 ML (OCEAN) SCH ×4 (09:32→20:20)
[2021-04-18 09:49] LABS: Partial Thromboplastin Time 61.2 Seconds (21.0-31.0)
[2021-04-18 09:56] LABS: INR 1.7 (0.9-1.1); Prothrombin Time 16.4 Seconds (9.0-12.0)
[2021-04-18 10:00] LABS: Partial Thromboplastin Ratio 2.3
[2021-04-18] MEDS: HEPARIN SODIUM/DEXTROSE 25,000 UNITS/500 ML BAG IV SCH (14:32)
[2021-04-18] MEDS: WARFARIN SOD 5 MG TAB PO SCH (15:32)
[2021-04-18] MEDS: WARFARIN SOD 2 MG TAB PO SCH (16:14)
--- NOTE | 2021-04-18 21:22 | Billing Data ---
Date of Service April 18, 2021 Coding Level of Care Code 37835 Subseq Hosp Care Lvl 2
[2021-04-19 06:06] LABS: Basophils # (auto) 0.02 K/uL (0-0.2); Basophils % (auto) 0.6 %; Eosinophils # (auto) 0.17 K/uL (0-0.5); Eosinophils % (auto) 5.1 %; Hematocrit (blood only) 35.7 % (42-52); Hemoglobin 11.1 g/dL (14.0-18.0); Immature Granulocytes # (auto) 0.01 K/uL (0.00-0.02); Immature Granulocytes % (auto) 0.3 %; Lymphocytes # (auto) 1.31 K/uL (1.2-3.4); Lymphocytes % (auto) 39.6 %; Mean Corpuscular Hemoglobin 24.2 pg (25-34); Mean Corpuscular Hgb Conc 31.1 g/dL (32-36); Mean Corpuscular Volume 77.8 fL (80-100); Mean Platelet Volume 9.9 fL (7.4-10.4); Monocytes # (auto) 0.35 K/uL (0.11-0.59); Monocytes % (auto) 10.6 %; Neutrophils # (auto) 1.45 K/uL (1.4-6.5); Neutrophils % (auto) 43.8 %; Platelet Count 284 K/uL (130-400); RDW Coefficient of Variation 17.7 % (11.5-14.5); RDW Standard Deviation 50.5 fL (36.4-46.3); Red Blood Count 4.59 M/uL (4.7-6.1); White Blood Count 3.31 K/uL (4.8-10.8)
[2021-04-19 06:25] LABS: Partial Thromboplastin Ratio 2.9; Prothrombin Time 18.9 Seconds (9.0-12.0)
[2021-04-19 06:31] LABS: Partial Thromboplastin Time 77.3 Seconds (21.0-31.0)
[2021-04-19 06:47] LABS: BUN Creatinine Ratio 6.1 (10-20); Creatinine Clr Calc Pharmacy 142.5 ml/min; Est GFR (African American) 125.8 ml/min; Est GFR (Non-African American) 108.5 ml/min; Potassium 3.4 mmol/L (3.5-5.1)
--- NOTE | 2021-04-19 07:10 | Hospitalist Progress Note ---
Date of Service April 19, 2021 Assessment & Plan (1) Small bowel obstruction, partial: Plan: 61 yo M w/ pMHx. of TURP, Diverticular disease complicated by perforation s/p colostomy that lead to a PE (on Warfarin) presenting with intermittent pain in his abdomen Small bowel ileus/enteritis - CTAP 04/17- postop surgical changes, mild distension of small bowel with no transition point, colonic diverticulosis - GI consulted 04/17- SBO unlikely, more likely ileus vs enteritis. C diff studies pending - Clinically improving, will advance diet to full liquids for evening - PRN Tylenol for pain - if abdominal pain acutely worsens consider KUB/CTAP and NGT - Supportive care for now, if symptoms worsen then general surgery consult will follow - Wound care nurse consulted Prior PE in the post operative setting - prior labs including FVL and lupus were negative - continue Warfarin, monitor INR. Started heparin bolus/drip 04/18, will trend INRs and discontinue Coumadin once INR in therapeutic range - INR currently 1.7 BPH s/p TURP with prior history of UTI's, currently asymptomatic - UA with trace LCE - continue to monitor for now - f/u urine culture DVT prophylaxis: Warfarin, Heparin Code: full Diet: Clears Dispo: pending further evaluation (2) Pulmonary emboli: (3) BPH (benign prostatic hyperplasia): (4) Diverticular disease: (5) HLD (hyperlipidemia): (6) S/P TURP: (7) Colostomy present: (8) Wound of abdomen: (9) Acute massive pulmonary embolism: Admission and Anticipated Discharge Date Admission Date: April 17, 2021 Subjective Pt reports improvement in abdominal pain near colostomy site after receiving PRN Tylenol last night. Continues to pass gas and some stool through colostomy bag. No difficulty urinating, ambulating and tolerating clear liquids well, eager to try solids. Denies chest pain, dyspnea, fever, chills. Review of Systems Review of Systems: denies: fevers, chills, nausea, vomiting, night sweats, falls, LOC, syncope or presyncope, stuffiness, sneezing, sore throat, chest pain, palpitations, hemoptysis, blood in stool, urinary urgency, frequency or pressure admits: cough with clear sputum Gastrointestinal: +Improving abdominal pain, no nausea, no vomiting, no diarrhea, no melena Physical Exam Constitutional: WD/WN, vitals as above Eyes: PERRL, conjunctivae normal, anicteric sclerae ENMT: external ear and nose normal, oropharynx normal Neck: normal visual inspection Respiratory: normal respiratory effort, lungs clear to auscultation Cardiovascular: RRR, no murmur, no edema Skin: no rashes, warm and dry Results & Data Results & [facility] ([facility]) Vital Signs (Past 12 Hours) Vital Signs Temp Pulse Resp BP Pulse Ox 04/18/21 21:49 36.4 C L 51 L 16 114/73 96 Resident Activity Tracking Resident Involvement: Resident Care Provided Care Provided: Adult Hospital Medicine (1) BPH (benign prostatic hyperplasia) Lower urinary tract symptom presence: unspecified whether lower urinary tract symptoms present Qualified Code(s): N40.0 - Benign prostatic hyperplasia without lower urinary tract symptoms (2) HLD (hyperlipidemia) Hyperlipidemia type: unspecified Qualified Code(s): E78.5 - Hyperlipidemia, unspecified (3) Pulmonary emboli Acute cor pulmonale presence: unspecified Chronicity: acute Pulmonary embolism type: saddle Qualified Code(s): I26.92 - Saddle embolus of pulmonary artery without acute cor pulmonale
[2021-04-19] MEDS: ASCORBIC ACID 500 MG TAB PO SCH (08:17)
[2021-04-19] MEDS: SODIUM CHLORIDE 0.65% NA SOLN 45 ML (OCEAN) SCH ×2 (08:18→15:11)
[2021-04-19] MEDS: CHOLECALCIFEROL 1,000 UNITS 25 MCG TAB PO SCH (08:18)
--- NOTE | 2021-04-19 09:17 | Medical Student Progress Note ---
Date of Service April 19, 2021 Assessment & Plan (1) Small bowel obstruction, partial: Plan: 61 yo M w/ pMHx. of TURP, Diverticular disease complicated by perforation s/p colostomy that lead to a PE (on Warfarin) presenting with intermittent pain in his abdomen Small bowel ileus/enteritis - CTAP 04/17- postop surgical changes, mild distension of small bowel with no transition point, colonic diverticulosis - GI consulted 04/17- SBO unlikely, more likely ileus vs enteritis. - ?C diff studies pending - Clinically improving, will advance diet to solids for lunch - PRN Tylenol for pain - If abdominal pain acutely worsens consider KUB/CTAP and NGT - Supportive care for now, if symptoms worsen then general surgery consult will follow - Wound care nurse consulted Prior PE in the post operative setting - Prior labs including FVL and lupus were negative - INR currently 2.0 - Continue Warfarin, monitor INR. - Discontinue heparin drip - Will discharge on increased dose of warfarin from 7 mg to 7.5 mg daily due to subtherapeutic INR on admission BPH s/p TURP - with prior history of UTI's, currently asymptomatic - UA with trace LCE - continue to monitor for now - f/u urine culture DVT prophylaxis: Warfarin Code: Full Diet: Clears to Solids Dispo: Pending further evaluation (2) Pulmonary emboli: Acute cor pulmonale presence: unspecified Chronicity: acute Pulmonary embolism type: saddle Qualified Code(s): I26.92 - Saddle embolus of pulmonary artery without acute cor pulmonale (3) BPH (benign prostatic hyperplasia): Lower urinary tract symptom presence: unspecified whether lower urinary tract symptoms present Qualified Code(s): N40.0 - Benign prostatic hyperplasia without lower urinary tract symptoms (4) Diverticular disease: (5) HLD (hyperlipidemia): Hyperlipidemia type: unspecified Qualified Code(s): E78.5 - Hyperlipidemia, unspecified (6) S/P TURP: (7) Colostomy present: (8) Wound of abdomen: (9) Acute massive pulmonary embolism: Admission and Anticipated Discharge Date Admission Date: April 17, 2021 Subjective Mr. Rene reports improvement in abdominal pain near colostomy site, but speaks of some pain in his right lower abdomen. He believes that it may be gas. Patient continues to pass gas, but has not passed stool through his colostomy bag. No difficulty urinating, ambulating and tolerating clear liquids well, recently having finished yogurt before I came into the room. He speaks of some mild chest pain that occasionally radiates from his abdomen, which he attributes to his surgical site. He denies any other acute concerns at this time; no palpitations, dyspnea, fever, or chills. Review of Systems Review of Systems: All systems reviewed & are unremarkable except as noted in Subjective Physical Exam Constitutional: WD/WN, vitals as above Eyes: + anicteric sclerae Neck: normal visual inspection Respiratory: normal respiratory effort, lungs clear to auscultation Cardiovascular: RRR, no murmur, no edema Gastrointestinal (Abdomen): Inspection/Auscultation: + abdominal surgical scar (left ostomy; surgical dressing) and + hyperactive bowel sounds Skin: no rashes, warm and dry Psychiatric: A+Ox3, euthymic affect Results & Data ([facility]) Vital Signs (Past 12 Hours) Vital Signs Temp Pulse Resp BP Pulse Ox 04/19/21 07:21 36.5 C 54 L 16 132/85 97 04/18/21 21:49 36.4 C L 51 L 16 114/73 96 Laboratory Results Laboratory Results WBC 3.31 K/uL (4.8-10.8) L 04/19/21 05:28 RBC 4.59 M/uL (4.7-6.1) L 04/19/21 05:28 Hgb 11.1 g/dL (14.0-18.0) L 04/19/21 05:28 POC Hgb 13.6 g/dl (14.0-18.0) L 04/16/21 23:40 Hct 35.7 % (42-52) L 04/19/21 05:28 POC Hct 40 % (42-52) L 04/16/21 23:40 MCV 77.8 fL (80-100) L 04/19/21 05:28 MCH 24.2 pg (25-34) L 04/19/21 05:28 MCHC 31.1 g/dL (32-36) L 04/19/21 05:28 RDW Std Deviation 50.5 fL (36.4-46.3) H 04/19/21 05:28 RDW Coeff of [place]on 17.7 % (11.5-14.5) H 04/19/21 05:28 Plt Count 284 K/uL (130-400) 04/19/21 05:28 MPV 9.9 fL (7.4-10.4) 04/19/21 05:28 Immature Gran % (Auto) 0.3 % 04/19/21 05:28 Neut % (Auto) 43.8 % 04/19/21 05:28 Lymph % (Auto) 39.6 % 04/19/21 05:28 [place] % (Auto) 10.6 % 04/19/21 05:28 Eos % (Auto) 5.1 % 04/19/21 05:28 Baso % (Auto) 0.6 % 04/19/21 05:28 Neut # (Auto) 1.45 K/uL (1.4-6.5) 04/19/21 05:28 Lymph # (Auto) 1.31 K/uL (1.2-3.4) 04/19/21 05:28 [place] # (Auto) 0.35 K/uL (0.11-0.59) 04/19/21 05:28 Eos # (Auto) 0.17 K/uL (0-0.5) 04/19/21 05:28 Baso # (Auto) 0.02 K/uL (0-0.2) 04/19/21 05:28 Immature Gran # (Auto) 0.01 K/uL (0.00-0.02) 04/19/21 05:28 PT 18.9 Seconds (9.0-12.0) H 04/19/21 05:28 INR 2.0 (0.9-1.1) H 04/19/21 05:28 APTT 77.3 Seconds (21.0-31.0) H* 04/19/21 05:28 PTT Ratio 2.9 04/19/21 05:28 POC Sodium 141 mmol/L (135-144) 04/16/21 23:40 Sodium 139 mmol/L (136-145) 04/19/21 05:28 POC Potassium 4.0 mmol/L (3.3-5.0) 04/16/21 23:40 Potassium 3.4 mmol/L (3.5-5.1) L 04/19/21 05:28 POC Chloride 102 mmol/L (101-112) 04/16/21 23:40 Chloride 108 mmol/L (98-107) H 04/19/21 05:28 Carbon Dioxide 25 mmol/L (21-32) 04/19/21 05:28 POC Total CO2 25 mmol/L (24-31) 04/16/21 23:40 Anion Gap 6.0 (3-11) 04/19/21 05:28 POC Anion Gap 19.0 mmol/L (16-25) 04/16/21 23:40 POC BUN 10 mg/dl (7-18) 04/16/21 23:40 BUN 4 mg/dl (7-18) L 04/19/21 05:28 Creatinine 0.59 mg/dl (0.6-1.4) L 04/19/21 05:28 POC Creatinine 0.9 mg/dl (0.6-1.3) 04/16/21 23:40 Est Cr Clr Drug Dosing 142.5 ml/min 04/19/21 05:28 Est GFR ( Amer) 125.8 ml/min 04/19/21 05:28 Est GFR (Non-Af Amer) 108.5 ml/min 04/19/21 05:28 BUN/Creatinine Ratio 6.1 (10-20) L 04/19/21 05:28 Glucose 90 mg/dl (70-99) 04/19/21 05:28 POC Glucose (other) 94 mg/dl (70-99) 04/16/21 23:40 Calcium 9.0 mg/dl (8.5-10.1) 04/19/21 05:28 POC Ioniz Calcium [place] 1.23 mmol/l (1.12-1.32) 04/16/21 23:40 Total Bilirubin 0.3 mg/dl (0.2-1) 04/16/21 23:39 AST 14 U/L (15-37) L 04/16/21 23:39 ALT 24 U/L (12-78) 04/16/21 23:39 Alkaline Phosphatase 84 U/L (45-117) 04/16/21 23:39 Troponin I < 0.015 ng/ml (0-0.045) 04/16/21 23:39 Total Protein 8.1 gm/dl (6.4-8.2) 04/16/21 23:39 Albumin 3.3 gm/dl (3.4-5.0) L 04/16/21 23:39 Globulin 4.8 gm/dl (2.5-4.0) H 04/16/21 23:39 Albumin/Globulin Ratio 0.7 (0.9-2) L 04/16/21 23:39 Lipase 312 U/L (73-393) 04/16/21 23:39 Urine Color Yellow 04/17/21 00:46 Urine Appearance Clear (Clear) 04/17/21 00:46 Urine pH 6.0 (4.5-7.5) 04/17/21 00:46 Ur Specific [place] 1.023 (1.000-1.030) 04/17/21 00:46 Urine Protein Negative (Negative) 04/17/21 00:46 Urine Glucose (UA) Negative (Negative) 04/17/21 00:46 Urine Ketones Negative (Negative) 04/17/21 00:46 Urine Blood Trace (Negative) H 04/17/21 00:46 Urine Nitrite Negative (Negative) 04/17/21 00:46 Urine Bilirubin Negative (Negative) 04/17/21 00:46 Urine Urobilinogen Negative (Negative) 04/17/21 00:46 Ur Leukocyte Esterase Trace (Negative) H 04/17/21 00:46 Urine WBC (Auto) 1-5 /hpf (0-5) 04/17/21 00:46 Urine RBC (Auto) 5-10 /hpf (0-4) H 04/17/21 00:46 U Hyaline Cast (Auto) 1-5 /lpf (0-5) 04/17/21 00:46 U Epithel Cells (Auto) 5-10 /lpf (0-5) H 04/17/21 00:46 Urine Bacteria (Auto) Negative (Negative) 04/17/21 00:46 COVID-19 Eval Order Covid19 at [facility] 04/16/21 23:15 SARS-CoV-2 (PCR) NEGATIVE (Negative) 04/16/21 23:15 Blood Type O Positive 04/16/21 23:40 Antibody Screen NEGATIVE 04/16/21 23:40 Impressions Abdomen/Pelvis CT 04/16/21 22:47 CT SCAN OF THE ABDOMEN AND PELVIS WITH IV CONTRAST CLINICAL HISTORY: Right lower quadrant abdominal pain. Recent colostomy. COMPARISON STUDY: Abdominal CT dated 03/16/2021. TECHNIQUE: Following the IV administration of 93 cc of Optiray 320, CT scan of the abdomen and pelvis is performed from the lung bases to the proximal femora. Images are reviewed in the axial, sagittal, and coronal planes. IV contrast was administered without complication. Note that the examination is suboptimal without enteric contrast. A dose lowering technique was utilized adhering to the principles of ALARA. CT DOSE: 446.52 mGy.cm FINDINGS: Lung bases: The heart is normal in size and without pericardial effusion. The lung bases are clear noting dependent atelectasis. There is a small hiatal hernia. Liver: The contrast-enhanced liver is normal in size, contour, and attenuation. There is no intrahepatic biliary ductal dilatation. The hepatic veins and portal veins are patent. Scattered subcentimeter hepatic hypodensities likely represent cysts but are too small for definitive characterization. Gallbladder: Unremarkable. Spleen: Normal in size and attenuation. Pancreas: Unremarkable. Adrenal glands: Unremarkable. Kidneys: The contrast enhanced kidneys are normal in size and without hydronephrosis. The kidneys enhance symmetrically. Abdominal vasculature: There is mild to moderate atherosclerotic calcification and ectasia of the abdominal aorta. There is also ectasia of the iliac arteries. Bowel: There is postoperative change from left-sided colon resection with left lower quadrant colostomy. A sigmoid stump is noted in the pelvis. There are mildly distended and fluid-filled loops of small bowel which measure up to 3.3 cm. There is no evidence of high-grade obstruction. No transition point is identified. There is no pneumatosis intestinalis or portal venous gas. The appendix is well-visualized and normal. There is mild diverticulosis of the colon without CT evidence of acute diverticulitis. Peritoneum: There is no intraperitoneal free air or abdominal ascites. There is dehiscence of the ventral abdominal wall. Lymphadenopathy: None. Pelvic viscera: The prostate gland is mildly enlarged and heterogeneous. Question previous TURP. The bladder is distended but otherwise normal in appearance. Skeletal structures: No lytic or blastic lesions are seen. IMPRESSION: 1. There is postoperative change from left-sided colon resection with left lower quadrant colostomy. 2. There is no high-grade bowel obstruction. 3. The small bowel loops are mildly distended and fluid-filled with no discrete transition point identified. This could represent a mild ileus versus low grade/partial obstruction. Clinical correlation will be essential. 4. No intraperitoneal free air is identified. 5. Additional findings as above. ACT 112: Negative or not required by law. Electronically signed by: Parviz Blanca M.D. 04/17/2021 8:50 AM Medications Administered Current Inpatient Medications Acetaminophen (Acetaminophen 325 Mg Tab) 650 mg PO Q6H PRN PRN Reason: Pain Stop: 05/18/21 00:13 Last Admin: 04/18/21 00:40 Dose: 650 mg Documented by: Ascorbic Acid (Ascorbic Acid 500 Mg Tab) 1,000 mg PO DAILY HOME Stop: 05/17/21 08:59 Last Admin: 04/19/21 08:17 Dose: 1,000 mg Documented by: Heparin Sodium/Dextrose (Heparin Sodium/Dextrose) 25,000 units in 500 mls @ 19 mls/hr IV .Q24H HOME; Protocol Stop: 05/17/21 14:14 Last Titration: 04/19/21 07:20 Dose: 950 units/hr, 19 mls/hr Documented by: Sodium Chloride (Sodium Chloride 0.65% Na Soln 45 Ml ([place])) 2 sprays NA QID HOME Stop: 05/17/21 03:41 Last Admin: 04/19/21 08:18 Dose: 2 sprays Documented by: Sodium Chloride (Sodium Chloride 0.65% Na Soln 45 Ml ([place])) 2 sprays NA UD PRN PRN Reason: Dryness Stop: 05/17/21 03:54 Vitamin D (Cholecalciferol 1,000 Units 25 Mcg Tab) 1,000 units PO DAILY HOME Stop: 05/17/21 08:59 Last Admin: 04/19/21 08:18 Dose: 1,000 units Documented by: Warfarin Sodium (Warfarin Sod 2 Mg Tab) 2 mg PO DAILY@1600 HOME Stop: 05/17/21 15:59 Last Admin: 04/18/21 16:14 Dose: 2 mg Documented by: Warfarin Sodium (Warfarin Sod 5 Mg Tab) 5 mg PO DAILY@1600 HOME Stop: 05/17/21 15:59 Last Admin: 04/18/21 15:32 Dose: 5 mg Documented by:
--- NOTE | 2021-04-19 12:25 | Discharge Summary ---
Date of Service April 19, 2021 Admission HPI Per Admitting Provider Mr. Katlyn Rene is a 60 y/o M with a PMHx of BPH, diverticular disease and HLD. He is currently incarcerated at [facility]. He presented to the ED with c/o intermittent abdominal pain and bloating that is positional. He has had increased liquid output from his colostomy, having to empty it 6 times today. There is no blood in the output, he has no drainage from his abdominal wound. Pt is a vague historian. He has had somewhat of a complicated course over the past 2 months. He was previously incarcerated at [facility]. He underwent a TURP procedure at [facility] that was uneventful. At that time, he was dealing with mild abd pain and has known diverticulitis. Following the TURP procedure, he ended up back at [facility] (given limited details) and claims that he had a perforated tic and ended up with a diverting colostomy. Uncertain of the surgeon. Subsequently, developed a nonhealing wound on the right mid abd requiring a wound vac. Was unable to receive wound care at [facility] and was relocated to [facility] here in [place]. He was then mostly bedbound. He was able to go to the bathroom and perform limited activit. He subsequently developed a PE and was admitted to [facility] and discharged on Warfarin. He is coming today from [facility]. Discharge Exam Constitutional WD/WN, vitals as above Eyes PERRL, conjunctivae normal, anicteric sclerae ENMT external ear and nose normal, oropharynx normal Neck normal visual inspection Respiratory normal respiratory effort, lungs clear to auscultation Cardiovascular RRR, no murmur, no edema Skin no rashes, warm and dry Discharge Data Allergies Allergy/AdvReac Type Severity Reaction Status Date / Time No Known Allergies Allergy Unverified 04/17/21 01:46 Consultations 04/17/21 01:20 ED Decision to Admit Stat Ordered Studies 04/16/21 22:47 CT abd pelvis IV con only Stat Hospital Course (1) Small bowel obstruction, partial: 61 yo M w/ pMHx. of TURP, Diverticular disease complicated by perforation s/p colostomy that lead to a PE (on Warfarin) presenting with intermittent pain in his abdomen Small bowel ileus/enteritis - CTAP 04/17- postop surgical changes, mild distension of small bowel with no transition point, colonic diverticulosis - GI consulted 04/17- SBO unlikely, more likely ileus vs enteritis. C diff studies pending - Clinically improving, will advance diet to full liquids for evening - PRN Tylenol for pain - if abdominal pain acutely worsens consider KUB/CTAP and NGT - Supportive care for now, if symptoms worsen then general surgery consult will follow - Wound care nurse consulted Prior PE in the post operative setting - prior labs including FVL and lupus were negative - continue Warfarin, monitor INR. Started heparin bolus/drip 04/18, will trend INRs and discontinue Coumadin once INR in therapeutic range - INR currently 1.7 BPH s/p TURP with prior history of UTI's, currently asymptomatic - UA with trace LCE - continue to monitor for now - f/u urine culture DVT prophylaxis: Warfarin, Heparin Code: full Diet: Clears Dispo: pending further evaluation (2) Pulmonary emboli: (3) BPH (benign prostatic hyperplasia): (4) Diverticular disease: (5) HLD (hyperlipidemia): (6) S/P TURP: (7) Colostomy present: (8) Wound of abdomen: (9) Acute massive pulmonary embolism: Discharge Plan Discharge Items Reason For Visit: PARTIAL SBO Follow-up/Referrals: Richard BALL [Primary Care Provider] - Medications and DC Order Prescriptions: New warfarin [Jantoven] 7.5 mg Tablet 7.5 mg PO DAILY@1600 Qty: 30 RF: 3 Continued docusate sodium [Colace] 100 mg Capsule 100 mg PO BID RF: 0 bisacodyl 5 mg Tablet,Delayed Release (Dr/Ec) 5 mg PO DAILY RF: 0 lactulose 10 gram/15 mL Solution 20 g PO DAILY PRN (Reason: Constipation) RF: 0 A&D Ointment 1 applic topical BID RF: 0 ascorbic acid (vitamin C) [Vitamin C] 1,000 mg Tablet 1 g PO DAILY RF: 0 cholecalciferol (vitamin D3) [Vitamin D3] 25 mcg (1,000 unit) Tablet 25 mcg PO DAILY RF: 0 ferrous sulfate 325 mg (65 mg iron) tablet,delayed release (DR/EC) 325 mg PO DAILY RF: 0 Discontinued warfarin 2 mg Tablet 2 mg PO DAILY RF: 0 warfarin 5 mg Tablet 5 mg PO DAILY RF: 0 No Action sodium chloride [[place] Saline] 0.65 % Aerosol,[place] 2 spray INTRANASAL .QID&PRN RF: 0 Admission Data Admit Date/Time: 04/17/21 02:21 Attending Provider: Clifton Priest Admit Provider: Nghia Julian Primary Care Provider: Richard BALL Other Providers: Luigi Cerda ; Justin Staton Resident Activity Tracking Resident Involvement: Resident Care Provided Care Provided: Adult Hospital Medicine
--- NOTE | 2021-04-19 12:56 | Med Student Discharge Summary ---
Date of Service April 19, 2021 Admission HPI Per Admitting Provider Chief Complaint: intermittent abdominal pain Primary Care Provider: [facility] Mr. Katlyn Rene is a 60 y/o M with a PMHx of BPH, diverticular disease and HLD. He is currently incarcerated at [facility]. He presented to the ED with c/o intermittent abdominal pain and bloating that is positional. He has had increased liquid output from his colostomy, having to empty it 6 times today. There is no blood in the output, he has no drainage from his abdominal wound. Pt is a vague historian. He has had somewhat of a complicated course over the past 2 months. He was previously incarcerated at [facility]. He underwent a TURP procedure at [facility] that was uneventful. At that time, he was dealing with mild abd pain and has known diverticulitis. Following the TURP procedure, he ended up back at [facility] (given limited details) and claims that he had a perforated tic and ended up with a diverting colostomy. Uncertain of the surgeon. Subsequently, developed a nonhealing wound on the right mid abd requiring a wound vac. Was unable to receive wound care at [facility] and was relocated to [facility] here in [place]. He was then mostly bedbound. He was able to go to the bathroom and perform limited activit. He subsequently developed a PE and was admitted to [facility] and discharged on Warfarin. He is coming today from [facility]. Admission Exam (Per Admitting) Constitutional WD/WN, vitals as above Eyes PERRL, conjunctivae normal, anicteric sclerae ENMT external ear and nose normal, oropharynx normal Neck normal visual inspection Respiratory normal respiratory effort, lungs clear to auscultation Cardiovascular RRR, no murmur, no edema Skin no rashes, warm and dry Discharge Data Consultations 04/17/21 01:20 ED Decision to Admit Stat Hospital Course (1) Small bowel obstruction, partial: 61 yo M w/ pMHx. of TURP, Diverticular disease complicated by perforation s/p colostomy that lead to a PE (on Warfarin) presented with intermittent pain in his abdomen. He was hospitalized from 04/17 to 04/19 and is being discharged back to [facility]. Small bowel ileus/partial SBO - CTAP 04/17- postop surgical changes, mild distension of small bowel with no transition point, colonic diverticulosis - GI consulted 04/17-more likely ileus, possibly SBO - Began on liquid diet, was clinically improving, so advanced to solids and tolerated - No abdominal pain, nausea, vomiting by day of discharge - Wound care nurse consulted; no issues for surgical dressings Prior PE in the post operative setting - Prior labs including FVL and lupus were negative - INR subtherapeutic at admission (1.5), was on warfarin 7 mg daily - Heparin drip was initiated alongside warfarin on 04/18 to reach goal INR of 2-3 - INR at discharge: 2.0 - Heparin to be discontinued upon discharge - Discharged on increased warfarin dose from 7 mg to 7.5 mg daily BPH s/p TURP - with prior history of UTI's, currently asymptomatic - U/A largely benign, no antibiotics given (2) BPH (benign prostatic hyperplasia): (3) Diverticular disease: (4) HLD (hyperlipidemia): (5) S/P TURP: (6) Colostomy present: (7) Wound of abdomen: (8) Acute massive pulmonary embolism: Discharge Plan Discharge Items Patient Disposition: [facility] Facility Reason For Visit: PARTIAL SBO Discharge Diagnosis: Partial SBO Activity: Per Instructions section Non-emergency contact: Primary Care Provider Call non-emergency contact if: you have any medication questions, your symptoms worsen, your pain is not controlled, your pain is worsening, your pain is concerning for you, you have a fever, your wound has increased redness, your wo und has increased drainage and your wound pain has increased Follow-up/Referrals: Rcihard BALL [Primary Care Provider] - Diet: Low Fiber Addtl Attending Provider Instructions: You were admitted to the hospital for partial small bowel obstruction Partial small bowel obstruction -You were admitted for partial small bowel obstruction, which was likely caused by the formation of adhesions in your abdomen following your surgery for diverticulitis last month. You were given IV fluids, laxatives and pain medication, which led to improvement of your abdominal pain, nausea and bowel movements. Because of your pulmonary embolism last month, you were on Coumadin and we added heparin during your hospital stay to reduce the risk of another embolism. Your heparin was discontinued on day of discharge and you were discharged back to your facility on an increased dose of your Coumadin to make it properly effective. A discharge summary will be sent to your correctional facility's physician to ensure continuity of care. Please bring this discharge summary with you to your next office appointment so that your provider can review it at that time. Follow-up appointments: You will be seen by your facility's physician for post-discharge evaluation. Medications: Your medication list has been reviewed and reconciled upon discharge to ensure accuracy and continuity of care. An updated list of all your medications is included with your hospital discharge paperwork. Please review this list closely, and make note of any changes Take Coumadin 7.5 mg once a day until stopped by your facility's physician. Take your medications as instructed; do not skip a dose of your medicines. Make sure all of your doctors know every medicine you are taking (including fteo-awc-euqovyi medicines, vitamins, and supplements). Call your primary care provider before taking any new medicines (including ucoq-zhn-iaydgql medicines, vitamins, and supplements), because some of these may interact with your current medications, or may make your symptoms worse. Tell your primary care provider if you cannot afford your medications. CONTACT YOUR FACILITY'S PHYSICIAN if you experience any of the following: Fever Abdominal pain Persistent nausea or vomiting Wound pain Wound drainage Redness around your wound Prolonged constipation Bleeding of any kind Difficulty following your treatment plan, or difficulty taking medications CALL YOUR FACILITY'S EMERGENCY SERVICES if you experience any of the following: Sudden, severe abdominal pain or nausea/vomiting Severe chest pain, or chest pain that radiates (moves) to your jaw or arm Sudden, severe shortness of breath or difficulty breathing Thank you for allowing us to participate in your care. Pending Studies at Discharge: No Stand-Alone Forms: My [facility] Skilled Items Patient informed of condition?: Yes Discharge Level of Care: Other Communicable Disease: No Discharge Prognosis: Improving Lines: None Urinary Catheter: No Medications and DC Order Prescriptions: New warfarin [Jantoven] 7.5 mg Tablet 7.5 mg PO DAILY@1600 Qty: 30 RF: 3 Continued docusate sodium [Colace] 100 mg Capsule 100 mg PO BID RF: 0 bisacodyl 5 mg Tablet,Delayed Release (Dr/Ec) 5 mg PO DAILY RF: 0 lactulose 10 gram/15 mL Solution 20 g PO DAILY PRN (Reason: Constipation) RF: 0 A&D Ointment 1 applic topical BID RF: 0 ascorbic acid (vitamin C) [Vitamin C] 1,000 mg Tablet 1 g PO DAILY RF: 0 sodium chloride [[place] Saline] 0.65 % Aerosol,[place] 2 spray INTRANASAL .QID&PRN RF: 0 cholecalciferol (vitamin D3) [Vitamin D3] 25 mcg (1,000 unit) Tablet 25 mcg PO DAILY RF: 0 ferrous sulfate 325 mg (65 mg iron) tablet,delayed release (DR/EC) 325 mg PO DAILY RF: 0 Discontinued warfarin 2 mg Tablet 2 mg PO DAILY RF: 0 warfarin 5 mg Tablet 5 mg PO DAILY RF: 0 Discharge Orders: Discharge Order (Routine); Ordered 04/19/21 Ordered By: Luis Albarran Admission Data Admit Date/Time: 04/17/21 02:21 Attending Provider: Clifton Priest Admit Provider: Nghia Julian Primary Care Provider: Richard BALL Other Providers: Luigi Cerda ; Justin Staton Other Interventions: Discharge Summary Assessment (RN) Last Done: 04/19/21 15:12 Supervising Attestation I personally examined the patient and verified all garg points of history and exam, discussed case, and agree with decision making with Goldie Pickard MS4 and Dr Albarran. Feeling better, eating better. Wonders about his abdominal wall bulging, but does not seem to have much pain. Vitals noted, in general he is awake and alert pleasant no distress. HEENT normocephalic atraumatic mucous membranes moist. Breathing unlabored no accessory muscle use good effort. Abdomen is soft mildly distended his distention is a little bit asymmetric more in the lower abdomen, no firmness no clearly palpable fascial defects no tender areas. He has midline wound that is dressed, no tracking erythema, ostomy present. No guarding/rebound/rigidity. Partial SBOimproving, tolerating p.o., stable for discharge. Otherwise as above, discussed ongoing wound care, as well as strategies to help with abdominal wall laxity.
[2021-04-19] MEDS ORDERED: WARFARIN SOD 7.5 MG TAB PO SCH (16:00)
--- NOTE | 2021-04-19 19:37 | Billing Data ---
Date of Service April 19, 2021 Coding Level of Care Code D/C DAY MANAGEMENT <30 MINS
--- NOTE | 2021-04-28 12:33 | Coding Query ---
CODING QUERY To promote full compliance with coding requirements relating to patient care, provider participation is requested in all cases of insurance verification rep uncertainty. Please assist us with the question(s) below: Coding Question(s): There is documentation in the record of PSBO and the Discharge Summary documents, "Partial small bowel obstruction -You were admitted for partial small bowel obstruction, which was likely caused by the formation of adhesions in your abdomen following your surgery for diverticulitis last month" and the Supervising Physician documentation on the Discharge Summary documents, Partial SBO, however, there is also documentation on the Discharge Summary, under the Hospital Course of Small Bowel Ileus/partial SBO with , "GI consulted 04/17-more likely ileus, possibly SBO" and the Progress Note, as on 04/18, has documentation by Supervising Physician of, "pSBO vs enteritis. favor former". As of the Discharge Summary, the Partial SBO is documented, but it is not clear if there was still possible Small Bowel Ileus or Enteritis as well. Please Specify below, in your clinical opinion, regarding Small Bowel Ileus and Enteritis. SMALL BOWEL ILEUS: ( ) Possible. Please specify further below: ( x ) Postop Ileus - complication of recent surgery most likely ( ) Other Ileus - Please Specify ( ) Unspecified Ileus ( ) Ruled-Out ( ) Other: Please Specify ENTERITIS: ( ) Possible Enteritis. Please Specify further below: ( ) Infectious Enteritis ( ) Other Enteritis - Please Specify ( ) Unspecified Enteritis ( x ) Ruled-Out most likely ruled out ( ) Other: Please Specify Physician's Response(s): Thank you Demetra Nix Principal Diagnosis: "that condition established after study, to be chiefly responsible for occasioning the admission of the patient to the hospital for care." Co-Existing Principal Diagnosis: "when two or more diagnoses equally meet the criteria for principal diagnosis as determined by the circumstances of admission, diagnostic work up, and/or therapy provided, and the Alphabetic Index, Tabular List, or another coding guideline does not provide sequencing direction, any one of the diagnoses may be sequenced first." "When the physician has documented what appears to be a current diagnosis in the body of the record, but has not included the diagnosis in the final diagnostic statement, the physician should be asked whether the diagnosis should be added." (Source Coding Clinic 2 QTR90. p3-4) BRYAN
== END 2021-04-19 17:54 | DRG 389 ==
LOC: ED 21:22 → SUATTDRO 04-17 02:21 → 3E 04-17 02:21
DX: Z79.01 Long term (current) use of anticoagulants; S31.109D Unspecified open wound of abdominal wall, unspecified quadrant without penetration into peritoneal cavity, subsequent encounter; Z51.81 Encounter for therapeutic drug level monitoring; Z98.890 Other specified postprocedural states; Z79.899 Other long term (current) drug therapy; Z20.822 Contact with and (suspected) exposure to COVID-19; Y83.8 Other surgical procedures as the cause of abnormal reaction of the patient, or of later complication, without mention of misadventure at the time of the procedure; Z93.3 Colostomy status; Z87.19 Personal history of other diseases of the digestive system; Z87.891 Personal history of nicotine dependence; T81.89XD Other complications of procedures, not elsewhere classified, subsequent encounter; Z86.711 Personal history of pulmonary embolism; K91.89 Other postprocedural complications and disorders of digestive system; Z87.440 Personal history of urinary (tract) infections; N40.0 Benign prostatic hyperplasia without lower urinary tract symptoms; K56.51 Intestinal adhesions [bands], with partial obstruction